=== PATIENT | male | born 1975 | race Two or more races ===

== ENCOUNTER 2020-09-05 13:55 | Emergency (ER) | payer OTHER, SELFPAY ==
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
[2020-09-05 14:53] VITALS: BP 149/95; PULSE 82; RESP 16; TEMP 37.3; O2SAT 98; BMI 28.7
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
[2020-09-05] MEDS: Ketorolac Tromethamine 60 MG/2 ML VIAL IM (16:19)
== END 2020-09-05 17:39 | disposition home or self-care (01) ==
PROVIDERS: Emergency Provider Emergency Medicine Emergency Medical Services
DX: S93.401A Sprain of unspecified ligament of right ankle, initial encounter (principal); M25.571 Pain in right ankle and joints of right foot; M79.671 Pain in right foot; Y92.410 Unspecified street and highway as the place of occurrence of the external cause; V43.62XA Car passenger injured in collision with other type car in traffic accident, initial encounter; Y93.9 Activity, unspecified; Y99.9 Unspecified external cause status
CPT/HCPCS: 73600; 73620; 96372; 99284; J1885

== ENCOUNTER → 2020-09-12 13:59 | Outpatient (BNVA) | payer OTHER, SELFPAY | PROVIDERS: Visit Provider Physician Assistant ==

== ENCOUNTER 2022-01-13 13:26 | Emergency (ER) | payer OTHER, SELFPAY ==
--- NOTE | ~2022-01-13 | XR_ITS ---
EXAMINATION: XR CHEST CLINICAL INFORMATION: Chest pain/cough COMPARISON: None TECHNIQUE: Frontal view of the chest was obtained. FINDINGS: The lungs are well-expanded and clear of acute pneumonic process. There are small nodular density left lower lobe measuring 7 mm similar nodular density seen measuring 4 mm in right lung base. Likely nipple shadows. Heart size and pulmonary vascularity is normal. No gross bony abnormality. XR/XR chest 1V IMPRESSION: Clear lungs likely nipple shadows in both lung bases.
[2022-01-13 13:36] VITALS: BP 147/86; PULSE 73; RESP 16; TEMP 37; O2SAT 97; BMI 31.2
--- NOTE | 2022-01-13 13:40 | ECG_ITS ---
Test Reason : CHEST PAIN Blood Pressure : / mmHG Vent. Rate : 071 BPM Atrial Rate : 071 BPM P-R Int : 116 ms QRS Dur : 078 ms QT Int : 420 ms P-R-T Axes : -15 041 041 degrees QTc Int : 456 ms Normal sinus rhythm Normal ECG No previous ECGs available Referred By: Generic ED Physician Electronically Signed By:NADEGE BAINS MD
[2022-01-13 14:07] LABS: MANUAL DIFF FLAG NO
[2022-01-13 14:09] LABS: Basophils Absolute Auto 0.1 X10*3/uL (0.0-0.2); Basophils Percent Auto 0.7 % (0-2); Eosinophils Absolute Auto 0.2 X10*3/uL (0.0-0.4); Eosinophils Percent Auto 2.7 % (0-4); Hematocrit 34.6 % (42.0-52.0); Hemoglobin 10.8 g/dl (14.0-18.0); Imm Gran Abs Auto 0.02 X10*3/uL (0.00-0.03); Imm Gran Pct Auto 0.3 % (0.0-0.4); Lymphocytes Absolute Auto 1.7 X10*3/uL (1.2-4.9); Lymphocytes Percent Auto 25.1 % (20-40); Mean Corpuscular HGB Conc 31.2 g/dl (31.0-36.0); Mean Corpuscular Hemoglobin 20.6 pg (27.0-33.0); Mean Platelet Volume 11.6 fL (9.4-12.4); Monocytes Absolute Auto 0.5 X10*3/uL (0.1-1.2); Monocytes Percent Auto 7.7 % (2-11); Neutrophils Absolute Auto 4.3 x10*3/uL (2.0-8.3); Neutrophils Percent Auto 63.5 % (45-73); Platelet Count 260 X10*3/uL (160-400); Red Blood Count 5.24 X10*6/uL (4.60-5.80); Red Cell Distribution Width 16.1 % (11.0-16.0); White Blood Count 6.8 X10*3/uL (4.8-10.8)
[2022-01-13 14:16] LABS: COVID-19 Test Positive (Negative)
[2022-01-13 14:25] LABS: Anion Gap 14 (12-20); Blood Urea Nitrogen 11 mg/dL (9-16); Calcium 8.8 mg/dL (8.4-10.2); Carbon Dioxide 26 mmol/L (22-29); Chloride 105 mmol/L (96-108); Creatinine Clr Calc Pharmacy 138.6; Estimated Glomerular Filt Rate > 60; Glucose Random 101 mg/dL (60-115); Potassium 3.9 mmol/L (3.3-5.1); Sodium 141 mmol/L (135-145)
[2022-01-13 14:30] LABS: Troponin-I High Sensitivity 6.9 ng/L (<3.5-35.0)
[2022-01-13 16:00] VITALS: BP 131/81; PULSE 67; RESP 16; TEMP 37; O2SAT 98
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
[2022-01-13] MEDS: Ibuprofen 400 MG TABLET PO (16:58)
== END 2022-01-13 17:02 | disposition home or self-care (01) ==
PROVIDERS: Emergency Provider Student in an Organized Health Care Education/Training Program
DX: U07.1 COVID-19 (principal); R07.89 Other chest pain; R05.9 Cough, unspecified; R42 Dizziness and giddiness; D64.9 Anemia, unspecified; Z79.899 Other long term (current) drug therapy
CPT/HCPCS: 36415; 71045; 80048; 84484; 85025; 87635; 93005; 99284

== ENCOUNTER 2022-05-31 19:49 | Emergency (ER) | payer OTHER, SELFPAY ==
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
[2022-05-31 20:35] VITALS: BP 156/95; PULSE 82; RESP 20; TEMP 36.7; O2SAT 96; BMI 30.2
--- NOTE | 2022-05-31 20:37 | ECG_ITS ---
Test Reason : chest pain Blood Pressure : / mmHG Vent. Rate : 079 BPM Atrial Rate : 079 BPM P-R Int : 120 ms QRS Dur : 074 ms QT Int : 414 ms P-R-T Axes : -15 045 043 degrees QTc Int : 474 ms Normal sinus rhythm Normal ECG When compared with ECG of 13-JAN-2022 13:55, No significant change was found Referred By: Hannah Cesar Electronically Signed By:NILTON OHARA
--- NOTE | 2022-05-31 20:38 | ED.MVA ---
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 intracranial hemorrhage or calvarial fracture. 2.? No traumatic subluxation or acute cervical spine fracture. Dictated By: Janes Us Signed By: Electronically signed by Janes?Magen 05/31/222234 <NIK Mcguire - Last Filed: 05/31/22 23:22> Discharge Plan Discharge Clinical Impression: Back pain, Neck pain <NIK Gallo - Last Filed: 05/31/22 20:42> Patient Disposition: Home, Self-Care <NIK Gallo - Last Filed: 05/31/22 20:42> Instructions: Back Pain (ED), Acute Neck Pain (ED) <NIK Gallo - Last Filed: 05/31/22 20:42> Additional Instructions: Follow up with your primary care provider. Return to the emergency department immediately if your symptoms worsen or if you develop any dizziness, shortness of breath, difficulty breathing, chest pain, blurry vision, loss of vision, nausea, vomiting, abdominal pain, fever, chills, back pain, or any other complaints. Debra un seguimiento con muñoz proveedor de atenci?n primaria. Regrese al departamento de emergencias de inmediato si kate s?ntomas empeoran o si presenta mareos, falta de aire, dificultad para respirar, dolor de pecho, visi?n borrosa, p?rdida de la visi?n, n?useas, v?mitos, dolor abdominal, fiebre, escalofr?os, dolor de espalda o cualquier otras quejas. <NIK Gallo - Last Filed: 05/31/22 20:42> Prescriptions: New cyclobenzaprine 5 mg tablet 5 mg PO TID PRN (Reason: muscle spasm) 7 Days Qty: 21 0RF No Action naproxen 500 mg tablet 500 mg PO BID PRN (Reason: pain) Qty: 20 0RF cyclobenzaprine 10 mg tablet 10 mg PO TID PRN (Reason: muscle spasm) Qty: 10 0RF <NIK Gallo - Last Filed: 05/31/22 20:42> Referrals: [facility] [Provider Group] (Call to establish and follow up with a primary care provider. If you already have a primary care provider, please follow up with them. Llame para establecer y hacer un seguimiento con un proveedor de atenci?n primaria. Si ya tiene un proveedor de atenci?n primaria, debra un seguimiento con ?l.) [facility] Primary [facility], [place] [Provider Group] (Call to establish and follow up with a primary care provider. If you already have a primary care provider, please follow up with them. Llame para establecer y hacer un seguimiento con un proveedor de atenci?n primaria. Si ya tiene un proveedor de atenci?n primaria, debra un seguimiento con ?l.) [facility] Primary Care,[place] [Provider Group] (Call to establish and follow up with a primary care provider. If you already have a primary care provider, please follow up with them. Llame para establecer y hacer un seguimiento con un proveedor de atenci?n primaria. Si ya tiene un proveedor de atenci?n primaria, debra un seguimiento con ?l.) <NIK Gallo - Last Filed: 05/31/22 20:42> Stand Alone Forms: Work/School Release <NIK Gallo - Last Filed: 05/31/22 20:42> Interventions: ED Discharge Assessment Last Done: 05/31/22 23:15 <NIK Gallo - Last Filed: 05/31/22 20:42> Print Language: Nigerien <NIK Gallo - Last Filed: 05/31/22 20:42>
[2022-05-31 21:07] LABS: Lymphocytes Percent Auto 21.2 % (20-40); Red Cell Distribution Width 15.6 % (11.0-16.0); SCAN SMEAR FLAG 1
[2022-05-31 21:09] LABS: Basophils Absolute Auto 0.1 X10*3/uL (0.0-0.2); Basophils Percent Auto 0.9 % (0-2); Eosinophils Absolute Auto 0.2 X10*3/uL (0.0-0.4); Eosinophils Percent Auto 2.4 % (0-4); Hemoglobin 11.6 g/dl (14.0-18.0); Imm Gran Abs Auto 0.04 X10*3/uL (0.00-0.03); Imm Gran Pct Auto 0.4 % (0.0-0.4); Lymphocytes Absolute Auto 2.1 X10*3/uL (1.2-4.9); MANUAL DIFF FLAG SCAN; Mean Corpuscular HGB Conc 31.4 g/dl (31.0-36.0); Mean Corpuscular Hemoglobin 20.9 pg (27.0-33.0); Mean Corpuscular Volume 66.8 fL (80.0-98.0); Mean Platelet Volume 11.6 fL (9.4-12.4); Monocytes Absolute Auto 0.5 X10*3/uL (0.1-1.2); Monocytes Percent Auto 5.3 % (2-11); Neutrophils Absolute Auto 6.8 x10*3/uL (2.0-8.3); Neutrophils Percent Auto 69.8 % (45-73); PLT CLUMP 1; Red Blood Count 5.54 X10*6/uL (4.60-5.80)
[2022-05-31 21:13] LABS: INTERNATIONAL NORM RATIO 1.1 (0.9-1.1); Prothrombin Time 12.2 SEC (10.0-13.1)
[2022-05-31 21:21] LABS: Alanine Aminotransferase 103 U/L (0-40); Albumin Level 4.4 g/dL (3.5-5.0); Alkaline Phosphatase 91 U/L (39-117); Anion Gap 16 (12-20); Aspartate Amino Transferase 117 U/L (5-37); Blood Urea Nitrogen 8 mg/dL (9-16); Calcium 8.9 mg/dL (8.4-10.2); Carbon Dioxide 22 mmol/L (22-29); Chloride 105 mmol/L (96-108); Creatinine Clr Calc Pharmacy 151.6; Estimated Glomerular Filt Rate > 60; Glucose Random 94 mg/dL (60-115); Magnesium 1.9 mg/dL (1.6-2.6); Potassium 4.1 mmol/L (3.3-5.1); Sodium 139 mmol/L (135-145); Total Protein 7.1 g/dL (6.5-8.0)
[2022-05-31 21:28] LABS: PLT ABN DIST 1; Platelet Count 143 X10*3/uL (160-400); Troponin-I High Sensitivity 6.4 ng/L (<3.5-35.0); White Blood Count 9.8 X10*3/uL (4.8-10.8)
[2022-05-31 21:29] LABS: SLIDE REVIEW VERIFIED
[2022-05-31 21:47] LABS: Influenza A PCR NEGATIVE (Negative); Influenza B PCR NEGATIVE (Negative); Resp Syncy Virus RNA Qual PCR NEGATIVE (Negative); SARS COV2 PCR INHOUSE NEGATIVE (Negative)
[2022-05-31 22:10] VITALS: BP 143/90; PULSE 83; RESP 18; TEMP 36.8; O2SAT 98
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
[2022-05-31] MEDS: Ketorolac Tromethamine 15 MG/ML VIAL IM (23:08)
[2022-05-31] MEDS: Cyclobenzaprine HCl 5 MG TABLET PO (23:08)
--- NOTE | 2022-05-31 23:15 | PC.NURSE ---
Pt medicated as prescribed for pain. Discharge instructions reviewed with pt. Pt verbalizes understanding.
== END 2022-05-31 23:16 | disposition home or self-care (01) ==
PROVIDERS: Physician Assistant Medical; Emergency Provider Student in an Organized Health Care Education/Training Program
DX: Z04.1 Encounter for examination and observation following transport accident (principal); M54.2 Cervicalgia; M54.50 Low back pain, unspecified; Z20.822 Contact with and (suspected) exposure to COVID-19
CPT/HCPCS: 0241U; 36415; 70450; 71046; 72100; 72125; 80053; 83735; 84484; 85025; 85610; 93005; 96372; 99284; 99285; J1885

== ENCOUNTER 2022-12-08 20:54 | Inpatient (IN) | payer OTHER, SELFPAY ==
--- NOTE | ~2022-12-08 | XR_ITS ---
EXAMINATION: XR CHEST CLINICAL INFORMATION: Chest pain COMPARISON: Chest 05/31/2022 TECHNIQUE: Frontal view of the chest was obtained. FINDINGS: No significant abnormality is noted involving the heart, lungs, mediastinum, bony thorax or soft tissues. XR/XR chest 1V IMPRESSION: Unremarkable chest examination.
[2022-12-08 20:58] VITALS: BP 127/83; PULSE 106; RESP 22; TEMP 36.3; O2SAT 98; BMI 29.5
--- NOTE | 2022-12-08 20:58 | ECG_ITS ---
Test Reason : CHEST PAIN Blood Pressure : / mmHG Vent. Rate : 103 BPM Atrial Rate : 103 BPM P-R Int : 134 ms QRS Dur : 084 ms QT Int : 380 ms P-R-T Axes : 037 041 032 degrees QTc Int : 497 ms Sinus tachycardia Cannot exclude old inferior infarct Prolonged QT Abnormal ECG When compared with ECG of 31-MAY-2022 21:04, No significant change was found Referred By: Generic ED Physician Electronically Signed By:NILTON OHARA
[2022-12-08 21:11] LABS: MANUAL DIFF FLAG NO
[2022-12-08 21:12] LABS: Basophils Absolute Auto 0.1 X10*3/uL (0.0-0.2); Basophils Percent Auto 0.8 % (0-2); Eosinophils Absolute Auto 0.2 X10*3/uL (0.0-0.4); Eosinophils Percent Auto 1.2 % (0-4); Hematocrit 30.3 % (42.0-52.0); Hemoglobin 9.9 g/dl (14.0-18.0); Imm Gran Abs Auto 0.09 X10*3/uL (0.00-0.03); Imm Gran Pct Auto 0.6 % (0.0-0.4); Lymphocytes Absolute Auto 2.4 X10*3/uL (1.2-4.9); Lymphocytes Percent Auto 16.5 % (20-40); Mean Corpuscular HGB Conc 32.7 g/dl (31.0-36.0); Mean Corpuscular Hemoglobin 23.1 pg (27.0-33.0); Mean Corpuscular Volume 70.8 fL (80.0-98.0); Mean Platelet Volume 11.2 fL (9.4-12.4); Monocytes Percent Auto 6.6 % (2-11); NRBC Pct Auto 0.3 /100WBC (0.0-0.2); Neutrophils Absolute Auto 10.8 x10*3/uL (2.0-8.3); Neutrophils Percent Auto 74.3 % (45-73); Platelet Count 267 X10*3/uL (160-400); Red Blood Count 4.28 X10*6/uL (4.60-5.80); Red Cell Distribution Width 17.5 % (11.0-16.0); White Blood Count 14.6 X10*3/uL (4.8-10.8)
[2022-12-08 21:18] LABS: INTERNATIONAL NORM RATIO 1.1 (0.9-1.1); Prothrombin Time 13.2 SEC (10.0-13.1)
[2022-12-08 21:32] LABS: Alanine Aminotransferase 42 U/L (0-40); Albumin Level 3.9 g/dL (3.5-5.0); Alkaline Phosphatase 110 U/L (39-117); Anion Gap 19 (12-20); Aspartate Amino Transferase 65 U/L (5-37); Bilirubin Total 1.1 mg/dL (0.0-1.0); Blood Urea Nitrogen 4 mg/dL (9-16); Calcium 8.8 mg/dL (8.4-10.2); Carbon Dioxide 20 mmol/L (22-29); Chloride 105 mmol/L (96-108); Creatinine Clr Calc Pharmacy 136.6; Estimated Glomerular Filt Rate > 60; Glucose Random 192 mg/dL (60-115); Potassium 2.4 mmol/L (3.3-5.1); Sodium 142 mmol/L (135-145); Total Protein 7.1 g/dL (6.5-8.0); Troponin-I High Sensitivity 3.2 ng/L (<3.5-35.0)
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
--- OUTSIDE RECORDS SUMMARY | 2022-12-08 21:50 | XMS_ITS | Continuity of Care Document ---
Author Name Unknown Organization [facility] Address [address] [place] [address]- Care Team Providers Care Neurology Director Name Role Phone Not on Staff, PCP Primary Care Physician Unavail able Encounter [facility] Date(s): 09/05/20 - 10/05/20 [facility]/[address] [address]- Allergies, Adverse Reactions, Alerts Substance Reaction Severity Status NKA Active Immunizations Given and Recorded Vaccine Date Status Refusal Reason influenza virus vaccine, inactivated 06/26/20 Give n influenza virus vaccine, inactivated 11/01/15 Give n tetanus/diphtheria/pertussis, acel(Tdap) 11/01/15 Given Medications Melatonin 5 mg oral tablet 1 tablet = 5 mg, By Mouth, Daily at bedtime, PRN for insomnia, # 60 tablet, 1 Refills, Maintenance,10/21/16 17:04:10, Tablet, please label in saudi arabian Start Date: 10/21/16 Status: Ordered omeprazole 20 mg oral enteric coated capsule 1 capsule = 20 mg, By Mouth, Daily, # 30 capsule, 1 Refills, Maintenance, 10/21/16 17:04:10, EC Capsule, please label in saudi arabian Start Date: 10/21/16 Status: Ordered Social History Social History Type Response Smoking Status Current every day sm oker; Type: Cigarettes; Tobacco use times per day: 7 cig / day; entered on: 10/21/16 Sex
--- OUTSIDE RECORDS SUMMARY | 2022-12-08 21:50 | XMS_ITS | Continuity of Care Document ---
Author Name Unknown Organization [facility] Address [address] [place] [address]- Care Team Providers Care Technical Staff Assistant Name Role Phone Not on Staff, PCP Primary Care Physician Unavail able Encounter [facility] Date(s): 06/19/20 - 07/19/20 [facility]/[address] [address]- Allergies, Adverse Reactions, Alerts Substance Reaction Severity [...] Refills, Maintenance,10/21/16 17:04:10, Tablet, please label in macedonian Start Date: 10/21/16 Status: Ordered omeprazole 20 mg oral enteric coated capsule 1 capsule = 20 mg, By Mouth, Daily, # 30 capsule, 1 Refills, Maintenance, 10/21/16 17:04:10, EC Capsule, please label in macedonian Start Date: 10/21/16 Status: Ordered Social History Social History Type Response Smoking Status Current every day sm oker; Type: Cigarettes; Tobacco use times per day: 7 cig / day; entered on: 10/21/16 Sex
--- OUTSIDE RECORDS SUMMARY | 2022-12-08 21:50 | XMS_ITS | Continuity of Care Document ---
Author Name Unknown Organization [facility] Address [address] [place] [address]- Care Team Providers Care Associate Loan Officer Name Role Phone Not on Staff, PCP Primary Care Physician Unavail able Encounter [facility] Date(s): 06/12/20 - 07/19/20 [facility]/[address] [address]- Attending Physician: Prisca Salinas NP Admitting Physician: Prisca Salinas NP Allergies, Adverse Reactions, Alerts Substance Reaction Severity [...] Refills, Maintenance,10/21/16 17:04:10, Tablet, please label in bangladeshi Start Date: 10/21/16 Status: Ordered omeprazole 20 mg oral enteric coated capsule 1 capsule = 20 mg, By Mouth, Daily, # 30 capsule, 1 Refills, Maintenance, 10/21/16 17:04:10, EC Capsule, please label in bangladeshi Start Date: 10/21/16 Status: Ordered Social History Social History Type Response Smoking Status Current every day sm oker; Type: Cigarettes; Tobacco use times per day: 7 cig / day; entered on: 10/21/16 Sex
--- OUTSIDE RECORDS SUMMARY | 2022-12-08 21:50 | XMS_ITS | Continuity of Care Document ---
Author Name Unknown Organization [facility] Address [address] [place] [address]- Care Team Providers Care Area Field Manager Name Role Phone Not on Staff, PCP Primary Care Physician Unavail able Encounter [facility] Date(s): 10/17/20 - 11/16/20 [facility] [address] [place] [address]- Attending Physician: Jarocho Macedo Admitting Physician: AdmJarocho lindsey Referring Physician: AdmtrJarocho Allergies, Adverse Reactions, Alerts Substance Reaction Severity [...]
--- OUTSIDE RECORDS SUMMARY | 2022-12-08 21:50 | XMS_ITS | Continuity of Care Document ---
Author Name Unknown Organization [facility] Address [address] [place] [address]- Care Team Providers Care Resource Manager Forester Name Role Phone Not on Staff, PCP Primary Care Physician Unavail able Encounter [facility] Date(s): 07/07/20 - 08/06/20 [facility] [address] [place] [address]- Attending Physician: Jarocho Macedo Admitting Physician: AdmJarocho [...] Refills, Maintenance,10/21/16 17:04:10, Tablet, please label in tanzanian Start Date: 10/21/16 Status: Ordered omeprazole 20 mg oral enteric coated capsule 1 capsule = 20 mg, By Mouth, Daily, # 30 capsule, 1 Refills, Maintenance, 10/21/16 17:04:10, EC Capsule, please label in tanzanian Start Date: 10/21/16 Status: Ordered Social History Social History Type Response Smoking Status Current every day sm oker; Type: Cigarettes; Tobacco use times per day: 7 cig / day; entered on: 10/21/16 Sex
--- OUTSIDE RECORDS SUMMARY | 2022-12-08 21:50 | XMS_ITS | Continuity of Care Document ---
Author Name Unknown Organization [facility] Address [address] [place] [address]- Care Team Providers Care Switchboard Operator Name Role Phone Not on Staff, PCP Primary Care Physician Unavail able Encounter [facility] Date(s): 06/19/20 - 08/06/20 [facility]/[address] [address]- Attending Physician: Prisca Salinas NP Admitting Physician: [...] Refills, Maintenance,10/21/16 17:04:10, Tablet, please label in kuwaiti Start Date: 10/21/16 Status: Ordered omeprazole 20 mg oral enteric coated capsule 1 capsule = 20 mg, By Mouth, Daily, # 30 capsule, 1 Refills, Maintenance, 10/21/16 17:04:10, EC Capsule, please label in kuwaiti Start Date: 10/21/16 Status: Ordered Social History Social History Type Response Smoking Status Current every day sm oker; Type: Cigarettes; Tobacco use times per day: 7 cig / day; entered on: 10/21/16 Sex
--- NOTE | 2022-12-08 21:56 | ED.CHESTPAIN ---
HPI - Chest Pain General Chief Complaint: Chest Pain Stated Complaint: Chest pain/diff breathing Time Seen by Provider: 12/08/22 21:39 History of Present Illness HPI narrative: patient is a 47-year-old male with a long history of smoking. He works in [employer]. Patient is working outside in the heat. Been noticing he is having some chest pain when he exerts himself. He has been drinking lots of fluids and also feel like he is urinating a lot. Feels weak and tired. He came to the ED for help. Patient denies any history of high blood pressure. He has not been followed by his primary physician. He has not been taking any medication. He is from home. Feels generally weak. Positive minimal coughing. Patient is a smoker. No recent risk stratification. Related Data Previous Rx's Medication Instructions Recorded cyclobenzaprine 10 mg tablet 10 mg PO TID PRN muscle spasm #10 09/05/20 tabs naproxen 500 mg tablet 500 mg PO BID PRN pain #20 tabs 09/05/20 cyclobenzaprine 5 mg tablet 5 mg PO TID PRN muscle spasm 7 05/31/22 days #21 tabs Allergies Allergy/AdvReac Type Severity Reaction Status Date / Time No Known Allergies Allergy Verified 01/13/22 13:36 [No Known Allergies*] Review of Systems Review of Systems: Positive chest pain no diaphoresis no fever no chills no coughing no congestion or respiratory symptoms. Yes all other systems are reviewed and are negative PMFSH Past Medical History Attestation statement: The following information was validated with the patient. 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 Oriented X3. No acute distress. Eyes: Pupils equal, round and reactive to light. ENT: Pharynx normal. Neck: Normal inspection. Neck supple. No lymph nodes noted. No crepitus CVS: Normal heart rate and rhythm. Pulses normal. Normal S1 and S2 Respiratory: No respiratory distress. Breath sounds normal. No Wheezing. No rales Abdomen: Soft and nontender. No rigidity. No distention. good BS x4 Skin: Skin warm and dry. Normal skin color. Normal skin turgor. Extremities: No lower extremity edema. Neurovascular intact to all extremities. No Lacerations. No Rash Neuro: Oriented X 3. No motor deficit. No sensory deficit. Moving all extermities. No slurred speech Medications Administered Generic Name Dose Route Start Last Admin Trade Name Freq PRN Reason Stop Dose Admin Potassium Chloride 10 meq in 100 mls @ 100 mls/hr 12/08/22 22:00 12/08/22 22:06 Potassium Chloride/H20 IV 12/09/22 01:59 100 mls/hr Q1H AMY Administration Sodium Chloride 1,000 mls @ 999 mls/hr 12/08/22 22:00 12/08/22 22:05 Ns IV 12/08/22 23:00 999 mls/hr .Q1H1M AMY Administration Discontinued Medications Generic Name Dose Route Start Last Admin Trade Name Freq PRN Reason Stop Dose Admin Aspirin 324 mg 12/08/22 21:56 12/08/22 22:04 Aspirin 81 Mg Tab.Chew PO 12/08/22 21:57 324 mg ONCE ONE Administration Potassium Chloride 40 meq 12/08/22 21:48 12/08/22 22:04 Potassium Chloride Er 20 Meq Tab.Er.Prt PO 12/08/22 21:49 40 meq ONCE ONE Administration Medical Decision Making Medical Decision Making MDM Narrative: Patient has chest pain with exertion. positive generalized malaise. Patient sugar was noted to be in the 190 range. He has not drink are 8 anything prior. Question secondary to diabetes. IV fluids started. Patient's potassium came back at 2.4. Added a magnesium. Will replete with 4 runs of 10 mEq potassium. Oral potassium supplement also ordered. First troponin was negative. My interpretation of the patient's EKG showed a sinus rhythm heart rate is 100 [place] QRS QTC within normal limits there is nonspecific T-wave flattening noted. Will get serial enzymes. Patient's chest pain is been ongoing for few days he does have multiple risk factor including smoking, question diabete. Will need serial enzymes. Currently in stable condition awaiting admission. patient's magnesium came back at 2.3 Potassium is being repleted. Case discussed with patient. Discussed with hospitalist for admission. Differential Diagnosis Differential Diagnoses: The differential diagnosis associated with the presentation includes ACS Consult Healthcare Provider Management of the patient was discussed with: Hospitalist Lab Data [facility] Lab Attestation statement: I reviewed the patient's lab results. 12/08/22 21:07 12/08/22 21:07 Labs: Lab Results 12/08/22 12/08/22 12/08/22 Range/Units 21:07 21:07 21:07 WBC 14.6 H (4.8-10.8) X10*3/uL RBC 4.28 L D (4.60-5.80) X10*6/uL Hgb 9.9 L (14.0-18.0) g/dl Hct 30.3 L (42.0-52.0) % MCV 70.8 L (80.0-98.0) fL MCH 23.1 L (27.0-33.0) pg MCHC 32.7 (31.0-36.0) g/dl RDW 17.5 H (11.0-16.0) % Plt Count 267 D (160-400) X10*3/uL MPV 11.2 (9.4-12.4) fL Immature Gran % (Auto) 0.6 H (0.0-0.4) % Neut % (Auto) 74.3 H (45-73) % Lymph % (Auto) 16.5 L (20-40) % [place] % (Auto) 6.6 (2-11) % Eos % (Auto) 1.2 (0-4) % Baso % (Auto) 0.8 (0-2) % Lymph # (Auto) 2.4 (1.2-4.9) X10*3/uL [place] # (Auto) 1.0 (0.1-1.2) X10*3/uL Eos # (Auto) 0.2 (0.0-0.4) X10*3/uL Baso # (Auto) 0.1 (0.0-0.2) X10*3/uL Abs Immat Gran (auto) 0.09 H (0.00-0.03) X10*3/uL Absolute Neuts (auto) 10.8 H (2.0-8.3) x10*3/uL Absolute Nucleated RBC 0.040 H (0.0-0.012) X10*3/uL Nucleated RBC % (auto) 0.3 H (0.0-0.2) /100WBC PT 13.2 H (10.0-13.1) SEC INR 1.1 (0.9-1.1) Sodium 142 (135-145) mmol/L Potassium 2.4 L* D (3.3-5.1) mmol/L Chloride 105 (96-108) mmol/L Carbon Dioxide 20 L (22-29) mmol/L Anion Gap 19 (12-20) BUN 4 L (9-16) mg/dL Creatinine 0.76 (0.5-1.4) mg/dL Estim Creat Clear Calc 136.6 Estimated GFR > 60 Random Glucose 192 H (60-115) mg/dL Calcium 8.8 (8.4-10.2) mg/dL Magnesium 2.3 (1.6-2.6) mg/dL Total Bilirubin 1.1 H (0.0-1.0) mg/dL AST 65 H (5-37) U/L ALT 42 H (0-40) U/L Alkaline Phosphatase 110 (39-117) U/L Troponin I High Sens (<3.5-35.0) ng/L Total Protein 7.1 (6.5-8.0) g/dL Albumin 3.9 (3.5-5.0) g/dL 12/08/22 Range/Units 21:07 WBC (4.8-10.8) X10*3/uL RBC (4.60-5.80) X10*6/uL Hgb (14.0-18.0) g/dl Hct (42.0-52.0) % MCV (80.0-98.0) fL MCH (27.0-33.0) pg MCHC (31.0-36.0) g/dl RDW (11.0-16.0) % Plt Count (160-400) X10*3/uL MPV (9.4-12.4) fL Immature Gran % (Auto) (0.0-0.4) % Neut % (Auto) (45-73) % Lymph % (Auto) (20-40) % [place] % (Auto) (2-11) % Eos % (Auto) (0-4) % Baso % (Auto) (0-2) % Lymph # (Auto) (1.2-4.9) X10*3/uL [place] # (Auto) (0.1-1.2) X10*3/uL Eos # (Auto) (0.0-0.4) X10*3/uL Baso # (Auto) (0.0-0.2) X10*3/uL Abs Immat Gran (auto) (0.00-0.03) X10*3/uL Absolute Neuts (auto) (2.0-8.3) x10*3/uL Absolute Nucleated RBC (0.0-0.012) X10*3/uL Nucleated RBC % (auto) (0.0-0.2) /100WBC PT (10.0-13.1) SEC INR (0.9-1.1) Sodium (135-145) mmol/L Potassium (3.3-5.1) mmol/L Chloride (96-108) mmol/L Carbon Dioxide (22-29) mmol/L Anion Gap (12-20) BUN (9-16) mg/dL Creatinine (0.5-1.4) mg/dL Estim Creat Clear Calc Estimated GFR Random Glucose (60-115) mg/dL Calcium (8.4-10.2) mg/dL Magnesium (1.6-2.6) mg/dL Total Bilirubin (0.0-1.0) mg/dL AST (5-37) U/L ALT (0-40) U/L Alkaline Phosphatase (39-117) U/L Troponin I High Sens 3.2 (<3.5-35.0) ng/L Total Protein (6.5-8.0) g/dL Albumin (3.5-5.0) g/dL Independent Interpretation I performed an independent interpretation of an: EKG Interpretation: my interpretation patient's EKG showed a sinus rhythm heart rate is 100 [place] QRS QTC within normal limits there is nonspecific T-wave flattening noted. Radiology Impression Discussion of test interpretation with radiology: I have reviewed the radiologist's reading. External Record Review External record reviewed: Office record Chronic Conditions Patient?s care impacted by: Diabetes Smoking Critical Care Time Critical Care Time Critical Care Time: No Discharge Plan Discharge Clinical Impression: Chest pain, Acute hypokalemia Patient Disposition: Admitted As Inpatient
[2022-12-08] MEDS: Potassium Chloride ER 20 MEQ TAB.ER.PRT 40 MEQ PO (22:04)
[2022-12-08] MEDS: Aspirin 81 MG TAB.CHEW 324 MG PO (22:04)
[2022-12-08] MEDS: 0.9 % Sodium Chloride 1,000 ML 999 ML IV (22:05)
[2022-12-08] MEDS: Potassium Chloride/H20 10 MEQ/100 ML PIGGYBACK 100 MEQ IV ×2 (22:06→23:09)
[2022-12-08 22:11] LABS: Magnesium 2.3 mg/dL (1.6-2.6)
[2022-12-08 22:43] LABS: COVID-19 Test Negative (Negative); IDNOW Serial# 08D9AD1C
[2022-12-08 22:46] LABS: Troponin-I High Sensitivity 3.1 ng/L (<3.5-35.0)
--- NOTE | 2022-12-08 22:49 | P.HPHOSP_ITS ---
History of Present Illness Date of Service: 12/08/22 Chief Complaint: Chest pain This is a 47-year-old male with pertinent history of tobacco use disorder presents emergency department for evaluation of chest discomfort. Patient has not seen a doctor in a while and does not take any prescription medications. Patient works in [employer] and about 2 days prior to presentation, patient noticed midsternal chest discomfort that worsened with exertion and radiated to the left arm. No relief with rest. Patient states over the last 2 days, he has had on and off chest discomfort. Patient denies fever, chills, shortness of breath, palpitations, changes in urinary habits. He also complains of nonbloody diarrhea that has been ongoing for the last few days. In the emergency department, patient's potassium found to be low. Review of Systems Constitutional: Constitutional: Reports fatigue Cardiovascular: Cardiovascular: Reports chest pain Respiratory: Respiratory: Reports no additional respiratory complaints Gastrointestinal: Gastrointestinal: Reports no additional gastrointestinal complaints Genitourinary: Genitourinary: Reports no additional male genitourinary complaints Endocrine: Endocrine: Reports fatigue [facility] Medical History Tobacco use disorder Pertinent family history: No family history of CAD Social History Alcohol intake: current Alcohol intake frequency: holidays/special occasions only Advance Directives: No Advance Directives Information Provided: No Current occupational status: employed Current occupation: [employer] Allergies Allergy/AdvReac Type Severity Reaction Status Date / Time No Known Allergies Allergy Verified 01/13/22 13:36 [No Known Allergies*] Active Medications: Current Medications Acetaminophen (Acetaminophen 325 Mg Tablet) 650 mg PO Q6H PRN PRN Reason: Pain, Mild (Pain Scale 1-3) Enoxaparin Sodium (Enoxaparin Sodium 40 Mg/0.4 Ml Syringe) 40 mg SUBCUT Q24H AMY Potassium Chloride (Potassium Chloride/H20) 10 meq in 100 mls @ 100 mls/hr IV Q1H AMY Stop: 12/09/22 01:59 Last Admin: 12/08/22 22:06 Dose: 100 mls/hr Sodium Chloride (Ns) 1,000 mls @ 999 mls/hr IV .Q1H1M AMY Stop: 12/08/22 23:00 Last Admin: 12/08/22 22:05 Dose: 999 mls/hr Melatonin (Melatonin 3 Mg Tablet) 6 mg PO BEDTIME PRN PRN Reason: Insomnia Ondansetron HCl (Ondansetron Hcl 4 Mg/2 Ml Vial) 4 mg IVPUSH Q8H PRN PRN Reason: Nausea and Vomiting Sodium Chloride (0.9 % Sodium Chloride Flush 3 Ml Syringe) 3 ml IVFLUSH QSHIFT [facility] Physical Exam Vital Signs and Narrative: Vital Signs: Last Vital Signs Temp 97.4 F 12/08/22 20:58 Pulse 106 H 12/08/22 20:58 Resp 22 H 12/08/22 20:58 BP 127/83 12/08/22 20:58 Pulse Ox 98 12/08/22 20:58 O2 Del Method Room Air 12/08/22 20:58 BMI result Body Mass Index 29.5 Middle-aged male lying in bed in no distress Neck supple, no JVD, nontender chest Tachycardic with regular rhythm, S1-S2 heard Regular breath sounds bilaterally, no wheezing or crackles appreciated Abdomen soft nontender, no guarding, no rigidity Patient is awake, alert and oriented to self, place, time and person ; no focal motor deficit Psych: Normal mood No pedal edema Results Labs 12/08/22 21:07 12/08/22 21:07 Labs: Laboratory Results - last 24 hr 12/08/22 12/08/22 12/08/22 21:07 21:07 21:07 MCV 70.8 L MCH 23.1 L MCHC 32.7 RDW 17.5 H Plt Count 267 D MPV 11.2 Immature Gran % (Auto) 0.6 H Neut % (Auto) 74.3 H Lymph % (Auto) 16.5 L [place] % (Auto) 6.6 Eos % (Auto) 1.2 Baso % (Auto) 0.8 Lymph # (Auto) 2.4 [place] # (Auto) 1.0 Eos # (Auto) 0.2 Baso # (Auto) 0.1 Abs Immat Gran (auto) 0.09 H Absolute Neuts (auto) 10.8 H Absolute Nucleated RBC 0.040 H Nucleated RBC % (auto) 0.3 H PT 13.2 H INR 1.1 Anion Gap 19 Estim Creat Clear Calc 136.6 Estimated GFR > 60 Random Glucose 192 H Calcium 8.8 Magnesium 2.3 Total Bilirubin 1.1 H AST 65 H ALT 42 H Alkaline Phosphatase 110 Troponin I High Sens Total Protein 7.1 Albumin 3.9 COVID-19 ([facility]) COVID-19 Clin Com 12/08/22 12/08/22 12/08/22 21:07 22:09 22:09 MCV MCH MCHC RDW Plt Count MPV Immature Gran % (Auto) Neut % (Auto) Lymph % (Auto) [place] % (Auto) Eos % (Auto) Baso % (Auto) Lymph # (Auto) [place] # (Auto) Eos # (Auto) Baso # (Auto) Abs Immat Gran (auto) Absolute Neuts (auto) Absolute Nucleated RBC Nucleated RBC % (auto) PT INR Anion Gap Estim Creat Clear Calc Estimated GFR Random Glucose Calcium Magnesium Total Bilirubin AST ALT Alkaline Phosphatase Troponin I High Sens 3.2 3.1 Total Protein Albumin COVID-19 ([facility]) Negative COVID-19 Clin Com See Note Assessment and Plan (1) Chest pain: Status: Acute (2) Acute hypokalemia: Status: Acute Plan This is a 47-year-old male with pertinent history of tobacco use disorder presents emergency department for evaluation of chest discomfort. #. Atypical chest discomfort. Patient was given aspirin in the ER. Will admit for observation with monitoring analyst. Trend troponin. Obtaining echocardiogram. Consulting Cardiology, appreciate assistance #. Hypokalemia due to GI losses. Repleted #. Tobacco use disorder: Nicotine patch while in the hospital. #. Hyperglycemia: Obtain A1c. Initiating accuchecks with SSI #. Microcytic anemia: Obtaining iron panel #. Reactive leukocytosis DVT prophylaxis: Lovenox Full code Time Spent With Patient Time: Total time managing care of this patient today ____ minutes. Quality Stroke Does the patient have a stroke diagnosis?: No VTE Prior VTE?: No VTE Risk Level:: Medical - moderate - high VTE Device Contraindication: Treatment Not Indicated VTE Drug Contraindication: N/A - Med Ordered
[2022-12-08] MEDS: Enoxaparin Sodium 40 MG/0.4 ML SYRINGE SUBCUT (22:59)
[2022-12-08] MEDS: Potassium Chloride Packet 20 MEQ PACKET 40 MEQ PO (23:01)
[2022-12-08] MEDS: Nicotine 14 MG PATCH.TD24 TRANSDERMA (23:01)
[2022-12-08 23:18] VITALS: PULSE 98
[2022-12-08 23:19] LABS: Iron 202 mcg/dL (45-160); Percent Iron Saturation 59 % (15-50); Total Iron Binding Capacity 341 mcg/dL (228-428); Unsaturated Iron Binding 139 ug/dL
--- NOTE | 2022-12-08 23:21 | PC.NURSE ---
Patient does not take any medications at home. Follow up appointment with a new PCP . Patient reports he is diabetic.
[2022-12-08] MEDS: Acetaminophen 325 MG TABLET 650 MG PO (23:23)
[2022-12-09] MEDS: 0.9 % Sodium Chloride Flush 3 ML SYRINGE IVFLUSH ×2 (00:09→06:58)
[2022-12-09] MEDS: Potassium Chloride/H20 10 MEQ/100 ML PIGGYBACK 100 MEQ IV ×6 (00:09→10:37)
[2022-12-09 02:03] VITALS: BP 111/68; PULSE 100; RESP 18; TEMP 37.3; O2SAT 97
[2022-12-09 06:05] LABS: MANUAL DIFF FLAG NO
[2022-12-09 06:09] LABS: Basophils Absolute Auto 0.1 X10*3/uL (0.0-0.2); Basophils Percent Auto 0.7 % (0-2); Eosinophils Absolute Auto 0.3 X10*3/uL (0.0-0.4); Eosinophils Percent Auto 2.7 % (0-4); Hematocrit 27.3 % (42.0-52.0); Imm Gran Abs Auto 0.06 X10*3/uL (0.00-0.03); Imm Gran Pct Auto 0.6 % (0.0-0.4); Lymphocytes Absolute Auto 2.4 X10*3/uL (1.2-4.9); Lymphocytes Percent Auto 22.7 % (20-40); Mean Corpuscular Hemoglobin 23.4 pg (27.0-33.0); Mean Corpuscular Volume 70.9 fL (80.0-98.0); Mean Platelet Volume 11.4 fL (9.4-12.4); Monocytes Absolute Auto 0.6 X10*3/uL (0.1-1.2); Monocytes Percent Auto 5.4 % (2-11); NRBC Pct Auto 0.4 /100WBC (0.0-0.2); Neutrophils Percent Auto 67.9 % (45-73); Platelet Count 250 X10*3/uL (160-400); Red Blood Count 3.85 X10*6/uL (4.60-5.80); Red Cell Distribution Width 17.2 % (11.0-16.0); White Blood Count 10.3 X10*3/uL (4.8-10.8)
[2022-12-09 06:33] LABS: Anion Gap 13 (12-20); Blood Urea Nitrogen 4 mg/dL (9-16); Calcium 8.1 mg/dL (8.4-10.2); Carbon Dioxide 24 mmol/L (22-29); Chloride 108 mmol/L (96-108); Creatinine Clr Calc Pharmacy 159.7; Estimated Glomerular Filt Rate > 60; Glucose Random 109 mg/dL (60-115); Potassium 3.1 mmol/L (3.3-5.1); Sodium 142 mmol/L (135-145)
[2022-12-09 06:34] VITALS: BP 143/85; PULSE 90; RESP 22; TEMP 37.7; O2SAT 97
[2022-12-09 06:39] LABS: Troponin-I High Sensitivity 3.2 ng/L (<3.5-35.0)
[2022-12-09] MEDS: Acetaminophen 325 MG TABLET 650 MG PO (06:39)
[2022-12-09 06:55] VITALS: BP 145/90; PULSE 89; RESP 21; TEMP 37.2; O2SAT 98
--- NOTE | 2022-12-09 07:00 | CA_ITS ---
Transthoracic Echocardiogram Patient (Last, First, Middle): Franky Espana A Gender: Male Date of : 1975 Age: 47 Procedure Date: 12/09/2022 Procedure Type: Transthoracic Echocardiogram Location: ER Height: 175.26 cm Weight: 90.72 kg BSA: 2.07 m2 Heart Rate: 93 bpm BP: 155 / 95 mmHg Hyster Machine Operator: SB Referring MD: Gian Reynaga MD Symptoms: chest pain Study Quality: Adequate w contrast ECG Rhythm: Sinus Conclusions: - The left ventricular systolic function is moderately decreased. The calculated ejection fraction is 38% by biplane method. - The inferoseptal wall and basal inferior segment are hypokinetic. - The inferolateral wall and mid inferior segment are akinetic. - No obvious valvular pathology seen on this study. Findings Left Ventricle Mildly increased left ventricular cavity size. The left ventricular systolic function is moderately decreased. The calculated ejection fraction is 38% by biplane method. There is evidence of regional wall motion abnormalities. Diastolic function is normal for age. There is mild septal asymmetric hypertrophy. Wall Motion Rest Echo Findings The inferoseptal wall and basal inferior segment are hypokinetic. The inferolateral wall and mid inferior segment are akinetic. Right Ventricle Normal right ventricular cavity size and systolic function. Aortic Valve There is a normal trileaflet aortic valve. There is no aortic valve stenosis. There is no aortic valve regurgitation. Mitral Valve The mitral valve appears normal. There is no mitral valve regurgitation. There is no mitral valve stenosis. Pulmonic Valve The pulmonic valve is likely normal. Tricuspid Valve There is trace tricuspid valve regurgitation. There is no evidence of pulmonary hypertension. Great Vessels The asc aorta and aortic arch are normal in size. Venous The inferior vena cava was not well visualized. Pericardium/Pleural There is no evidence of pericardial effusion. Prior Study Comparison No prior study available for comparison. Recommendations, Care & Conclusions No obvious valvular pathology seen on this study. Measurements 2D Linear Measurements IVSd: 1.11 0.6-0.9/0.6-1.0 cm LVIDd: 5.55 3.9-5.3/4.2-5.9 cm LVIDd Index: 2.68 2.4-3.2/2.2-3.1 cm/m2 LVIDs: 4.41 2.0-3.6 cm LVPWd: 0.68 0.7-1.1 cm LA Diam: 4.60 2.7-3.8/3.0-4.0 cm LAIDs Index: 2.22 1.5-2.3 cm/m2 LV Mass: 233.14 67-162/88-224 g LV Mass Index: 112.63 43-95/49-115 g/m2 LVOT Diam: 2.30 3.0+(-)1.3 cm 2D Systolic Function EF 4C: 39.20 >55% EF 2C: 37.10 >55% EF BiP: 38.30 >55% Mitral Valve MV Pk E: 0.93 MV PK A: 0.87 MV Decel Time: 180.00 E/A: 1.10 E'Lateral: 8.70 E'Medial: 7.72 E/E' Med: 12.10 E/E' Lat: 10.70 PHT: 53.00 MVA PHT: 4.15 Decel [place]: 5.18 Aortic Valve AoV Pk Carlos: 1.32 AoV Pk Grad: 7.00 DIONISIO: 3.39 LVOT LVOT Pk Carlos: 1.02 LVOT Mn [place]: 0.66 LVOT VTI: 0.19 LVOT Pk Grad: 4.00 LVOT Mn Grad: 2.00 LVOT Diam: 2.30 LVOT Area: 4.15 Diastolic Function MV Pk E: 0.93 MV Pk A: 0.87 E/A: 1.10 E'Medial: 7.72 E/E' Med: 12.10 E' Laterial: 8.70 E/E' Lat: 10.70 Right Ventricle TAPSE (mm): 22.40 TVS' Carlos: 13.60 Tricuspid Valve TR Pk Carlos: 2.23 TR Pk Grad: 20.00 RA Press: 3.00 RVSP: 23.00 Great Vessels Aorta Sinus of Valsalva: 3.50 2.0-3.5 cm Ao Asc: 3.40 2.1-3.4 cm Ao Arch: 2.80 Ao Desc: 2.30 Pulmonary Veins Pulm Vein S/D 1.80 Pulmonary Valve PV Pk Carlos: 1.26 Peak PV Grad: 6.00 Updated in Other Vendor System with Status of Final Neal Pratt MD electronically signed on 12/09/2022 9:57:04 AM with status of Final
[2022-12-09 07:04] LABS: Glucose, Whole Blood 111 mg/dL (60-115)
--- NOTE | 2022-12-09 07:06 | PC.NURSE ---
Alert and oriented. Denies chest pain, but states has headache and some dizziness. States pain in head is 2/10, does not want anything for pain at this time.Reports feeling better than upon arrival. POC 111. Sinus tachy on monitor. vss. Eating beakfast at this time, at bedside. Aware that plan is to be admitted when there is a bed ready upstairs.
--- NOTE | 2022-12-09 07:35 | PHA.MEDREC ---
Pharmacy Consult ? Medication Reconciliation Pharmacy has completed the medication reconciliation.
[2022-12-09] MEDS: Nicotine 14 MG PATCH.TD24 TRANSDERMA (07:57)
[2022-12-09] MEDS: Potassium Chloride Packet 20 MEQ PACKET 40 MEQ PO (07:58)
[2022-12-09 08:04] LABS: Estimated Average Glucose 103 mg/dL; Hemoglobin A1c % 5.2 %
[2022-12-09 08:25] LABS: Magnesium 1.8 mg/dL (1.6-2.6)
[2022-12-09 08:52] LABS: Ferritin 457 ng/mL (20-250)
--- NOTE | 2022-12-09 09:03 | MHC.EDTECH ---
pt ate 100% of breakfast
--- NOTE | 2022-12-09 09:14 | PM.CNCAR ---
History of Present Illness History of Present Illness Date of Service: 12/09/22 Chief complaint: chest pain Narrative: This is a cardiology consultation regarding chest pain. Patient has not apparently seen a doctor in a while. He works in [employer]. Regular smoker as well as probably excessive alcohol use as he drinks apparently lot of beer daily. He presents with complaints of chest pain. He states that he feels a discomfort in the substernal and left chest area and also in the left arm. This happens intermittently. No specific provoking or relieving factors. Specifically when asking about exertion characteristics, he is not able to state one way or another. Using sumac tanner to discuss the same. Otherwise, he also feels short of breath and sweaty intermittently. No documented coronary disease myocardial infarction or cardiomyopathy. Blood pressure is on the higher side since admission, but not tremendously high. Denies any family history of premature CAD. Review of Systems Review of Systems: Yes all other systems are reviewed and are negative Constitutional: Constitutional: Reports as per HPI and Reports no additional constitutional complaints Eyes: Eyes: Reports as per HPI and Denies no additional eye complaints ENT: Denies system reviewed and no additional complaints, except as documented and Reports as per HPI Cardiovascular: Cardiovascular: Reports as per HPI, Reports no additional cardiovascular complaints, Denies acrocyanosis, Denies cool extremities, Reports chest pain, Denies leg edema, Denies lightheadedness, Denies palpitations and Reports dyspnea Respiratory: Respiratory: Reports as per HPI, Denies no additional respiratory complaints and Reports dyspnea Gastrointestinal: Gastrointestinal: Reports as per HPI and Denies no additional gastrointestinal complaints Genitourinary: Genitourinary: Reports no additional male genitourinary complaints and Reports as per HPI Musculoskeletal: Musculoskeletal: Reports no additional musculoskeletal complaints and Reports as per HPI Integumentary/Breasts: Skin/Breast: Reports system reviewed and no additional complaints, except as docu Neurologic: Reports system reviewed and no additional complaints, except as documented and Reports as per HPI Psychiatric: Psychiatric: Reports no additional psychiatric complaints and Reports as per HPI Endocrine: Endocrine: Reports no additional endocrine complaints, Reports as per HPI and Denies palpitations Hematologic/Lymphatic: Hematologic/Lymphatic: Reports no additional hematologic/lymphatic complaints and Reports as per HPI Allergic/Immunologic: Allergic/Immunologic: Reports no additional allergic/immunologic complaints and Reports as per HPI [facility] Past Medical History Medical History Tobacco use disorder Family History Family History (Updated 12/09/22 @ 09:17 by Neal Pratt MD) Father Prostate cancer Social History Social History Alcohol intake: current Alcohol intake frequency: a few times a week Alcohol type: beer Patient Tobacco Use Status: Current everyday Tobacco user Smoked in Last 30 Days: Yes Use of substances other than those prescribed or required for medical reasons: No Advance Directives: No Advance Directives Information Provided: No Nutrition Risks: No Nutritional Risk Current occupational status: employed Current occupation: [employer] Allergies Allergy/AdvReac Type Severity Reaction Status Date / Time No Known Allergies Allergy Verified 01/13/22 13:36 [No Known Allergies*] Active Medications: Current Medications Acetaminophen (Acetaminophen 325 Mg Tablet) 650 mg PO Q6H PRN PRN Reason: Pain, Mild (Pain Scale 1-3) Last Admin: 12/09/22 06:39 Dose: 650 mg Dextrose (Dextrose 50 % 25 Gm/50 Ml Syringe) 25 gm IVPUSH Q15M PRN; Protocol PRN Reason: per Hypoglycemia Standing Ord. Enoxaparin Sodium (Enoxaparin Sodium 40 Mg/0.4 Ml Syringe) 40 mg SUBCUT Q24H AMY Last Admin: 12/08/22 22:59 Dose: 40 mg Glucose (Glucose Gel 15 Gm Gel..Gram.) 15 gm PO Q15M PRN; Protocol PRN Reason: per Hypoglycemia Standing Ord. Potassium Chloride (Potassium Chloride/H20) 10 meq in 100 mls @ 100 mls/hr IV Q1H AMY Stop: 12/09/22 10:44 Last Admin: 12/09/22 09:10 Dose: 100 mls/hr Insulin Human Lispro (Insulin Lispro 100 Unit/Ml 3 Ml Vial) 0 unit SUBCUT QIDACHS AMY; Protocol Last Admin: 12/09/22 07:27 Dose: Not Given Melatonin (Melatonin 3 Mg Tablet) 6 mg PO BEDTIME PRN PRN Reason: Insomnia Nicotine (Nicotine 14 Mg Patch.Td24) 14 mg TRANSDERMA DAILY AMY Last Admin: 12/09/22 07:57 Dose: 14 mg Ondansetron HCl (Ondansetron Hcl 4 Mg/2 Ml Vial) 4 mg IVPUSH Q8H PRN PRN Reason: Nausea and Vomiting Sodium Chloride (0.9 % Sodium Chloride Flush 3 Ml Syringe) [facility] Last Admin: 12/09/22 06:58 Dose: 3 ml Home Medications Medication Instructions Recorded Confirmed Last Taken Type No Known Home Meds 12/09/22 12/09/22 Unknown History Physical Exam Vital Signs: Vital Signs: Last Vital Signs Temp 99.0 F 12/09/22 06:55 Pulse 89 12/09/22 06:55 Resp 21 H 12/09/22 06:55 BP 145/90 H 12/09/22 06:55 Pulse Ox 98 12/09/22 06:55 O2 Del Method Room Air 12/09/22 06:55 BMI result Body Mass Index 29.5 Const: General: comfortable and no acute distress Orientation/consciousness: patient oriented x3 HEENT: Other: Unremarkable Head: Yes normal to inspection Neck: Neck: Yes normal visual inspection Chest: Chest palpation & inspection: normal inspection of the chest Resp: Auscultation: clear to auscultation bilaterally Cardio: Palpation: normal PMI Heart sounds: S1 normal heart sound present, S2 normal heart sound present, no gallops, Murmur heart sound present systolic II/ and at the left sternal border and no rubs GI: Palpation (GI): Soft to palpation Back/Spine/Pelvis: Other: unremarkable Skin: General skin exam: no rashes or lesions noted Neuro: General: patient oriented x3 Extrem: General: Yes normal to inspection Psych: Mental Status: mental status grossly normal Objective Labs and Meds 12/09/22 05:59 12/09/22 05:59 Lab results: Laboratory Results - last 24 hr 12/08/22 12/08/22 12/08/22 21:07 21:07 21:07 WBC 14.6 H RBC 4.28 L D Hgb 9.9 L Hct 30.3 L MCV 70.8 L MCH 23.1 L MCHC 32.7 RDW 17.5 H Plt Count 267 D MPV 11.2 Immature Gran % (Auto) 0.6 H Neut % (Auto) 74.3 H Lymph % (Auto) 16.5 L [place] % (Auto) 6.6 Eos % (Auto) 1.2 Baso % (Auto) 0.8 Lymph # (Auto) 2.4 [place] # (Auto) 1.0 Eos # (Auto) 0.2 Baso # (Auto) 0.1 Abs Immat Gran (auto) 0.09 H Absolute Neuts (auto) 10.8 H Absolute Nucleated RBC 0.040 H Nucleated RBC % (auto) 0.3 H PT 13.2 H INR 1.1 Sodium 142 Potassium 2.4 L* D Chloride 105 Carbon Dioxide 20 L Anion Gap 19 BUN 4 L Creatinine 0.76 Estim Creat Clear Calc 136.6 Estimated GFR > 60 POC Glucose Random Glucose 192 H Estimat Average Glucose Hemoglobin A1c % Calcium 8.8 Magnesium 2.3 Iron 202 H TIBC 341 % Saturation 59 H Unsat Iron Binding 139 Ferritin Total Bilirubin 1.1 H AST 65 H ALT 42 H Alkaline Phosphatase 110 Troponin I High Sens Total Protein 7.1 Albumin 3.9 COVID-19 (NATALI) COVID-19 [employer] 12/08/22 12/08/22 12/08/22 21:07 21:07 22:09 WBC RBC Hgb Hct MCV MCH MCHC RDW Plt Count MPV Immature Gran % (Auto) Neut % (Auto) Lymph % (Auto) [place] % (Auto) Eos % (Auto) Baso % (Auto) Lymph # (Auto) [place] # (Auto) Eos # (Auto) Baso # (Auto) Abs Immat Gran (auto) Absolute Neuts (auto) Absolute Nucleated RBC Nucleated RBC % (auto) PT INR Sodium Potassium Chloride Carbon Dioxide Anion Gap BUN Creatinine Estim Creat Clear Calc Estimated GFR POC Glucose Random Glucose Estimat Average Glucose 103 Hemoglobin A1c % 5.2 Calcium Magnesium Iron TIBC % Saturation Unsat Iron Binding Ferritin Total Bilirubin AST ALT Alkaline Phosphatase Troponin I High Sens 3.2 3.1 Total Protein Albumin COVID-19 ([facility]I) COVID-19 [employer] Com 12/08/22 12/09/22 12/09/22 22:09 05:59 05:59 WBC 10.3 RBC 3.85 L Hgb 9.0 L Hct 27.3 L MCV 70.9 L MCH 23.4 L MCHC 33.0 RDW 17.2 H Plt Count 250 MPV 11.4 Immature Gran % (Auto) 0.6 H Neut % (Auto) 67.9 Lymph % (Auto) 22.7 [place] % (Auto) 5.4 Eos % (Auto) 2.7 Baso % (Auto) 0.7 Lymph # (Auto) 2.4 [place] # (Auto) 0.6 Eos # (Auto) 0.3 Baso # (Auto) 0.1 Abs Immat Gran (auto) 0.06 H Absolute Neuts (auto) 7.0 Absolute Nucleated RBC 0.040 H Nucleated RBC % (auto) 0.4 H PT INR Sodium 142 Potassium 3.1 L D Chloride 108 Carbon Dioxide 24 Anion Gap 13 BUN 4 L Creatinine 0.65 Estim Creat Clear Calc 159.7 Estimated GFR > 60 POC Glucose Random Glucose 109 Estimat Average Glucose Hemoglobin A1c % Calcium 8.1 L D Magnesium 1.8 Iron TIBC % Saturation Unsat Iron Binding Ferritin 457 H Total Bilirubin AST ALT Alkaline Phosphatase Troponin I High Sens Total Protein Albumin COVID-19 ([facility]I) Negative COVID-19 Clin Com See Note 12/09/22 12/09/22 05:59 07:00 WBC RBC Hgb Hct MCV MCH MCHC RDW Plt Count MPV Immature Gran % (Auto) Neut % (Auto) Lymph % (Auto) [place] % (Auto) Eos % (Auto) Baso % (Auto) Lymph # (Auto) [place] # (Auto) Eos # (Auto) Baso # (Auto) Abs Immat Gran (auto) Absolute Neuts (auto) Absolute Nucleated RBC Nucleated RBC % (auto) PT INR Sodium Potassium Chloride Carbon Dioxide Anion Gap BUN Creatinine Estim Creat Clear Calc Estimated GFR POC Glucose 111 Random Glucose Estimat Average Glucose Hemoglobin A1c % Calcium Magnesium Iron TIBC % Saturation Unsat Iron Binding Ferritin Total Bilirubin AST ALT Alkaline Phosphatase Troponin I High Sens 3.2 Total Protein Albumin COVID-19 (NATALI) COVID-19 Clin Com ECG Interpretation: EKG with sinus rhythm at 01:03/Min; cannot exclude old inferior infarct; nonspecific ST-T changes; corrected QT is prolonged at 497 milliseconds. Imaging Radiologist's impression: Impressions Chest X-Ray 12/08/22 22:45 IMPRESSION: Unremarkable chest examination. Assessment and Plan (1) Chest pain: Status: Acute (2) Acute hypokalemia: Status: Acute (3) Anemia: Status: Inactive Plan In the labs, slightly anemic at 9. Potassium is low at 2.4 but improved to 3.1. This could be from alcohol excess. LFTs slightly abnormal again possibly from alcohol. High sensitivity troponins are within range. Echocardiogram is pending. Overall, symptoms are concerning. Could be anginal nature but then on exertional characteristics are somewhat contradictory. Any case, he will need further workup. To decide between stress test versus cardiac catheterization. Will review the echocardiogram. Any wall motion abnormalities will guide us towards rather catheterization. If not, then possibly a stress test. Will follow up with you closely. Otherwise, potassium needs to be corrected. Also not sure why he is anemic. That will also need to be looked into. Alcohol/smoking cessation. Discussed with . Discussed with patient's at the bedside. sumac tanner used in this encounter. Time Spent With Patient Time: Total time managing care of this patient today ____ minutes. Procedures Date of Service Date of Service: 12/09/22
--- NOTE | 2022-12-09 09:51 | PC.NURSE ---
Report given to accepting unit
[2022-12-09 10:06] VITALS: BP 154/88; PULSE 94; RESP 20; TEMP 37.2; O2SAT 97
--- NOTE | 2022-12-09 10:49 | MHC.CM.PN ---
Per ROUNDS discussion, dc/transfer to [facility] for Cardiac Cath is likely. Patient lives in n apartment with his Uncle and he is functionally independent and working. CM has initiated and will follow for dc planning. Patient is jocelyn leon'giulia x4 and his new PCP is Dr. Hernández.
--- NOTE | 2022-12-09 10:55 | P.DS_ITS ---
DS: Providers Provider Date of Service: 12/09/22 Date of admission: 12/09/22 10:53 Date of discharge: 12/09/22 Primary care physician: Unknown Physician Consults: 12/08/22 22:48 Consult to Cardiology Routine Consulting Provider: [facility] Cardiovascular Services Reason for consultation: Chest pain Has provider been notified: Yes DS: Diagnosis Discharge Diagnosis (1) Chest pain: Status: Acute (2) Acute hypokalemia: Status: Acute (3) Anemia: Status: Inactive (4) Cardiomyopathy: Status: Acute (5) Acute coronary syndrome: Status: Acute (6) Iron deficiency anemia: Status: Acute (7) Tobacco use disorder: Status: Acute DS: Summary Hospital Course Hospital Course: from admission H+P by hospitalist Momo Reynaga MD, 12/08/22: This is a 47-year-old male with pertinent history of tobacco use disorder presents emergency department for evaluation of chest discomfort.? Patient has not seen a doctor in a while and does not take any prescription medications.? Patient works in [employer] and about 2 days prior to presentation, patient noticed midsternal chest discomfort that worsened with exertion and radiated to the left arm.? No relief with rest.? Patient states over the last 2 days, he has had on and off chest discomfort.? Patient denies fever, chills, shortness of breath, palpitations, changes in urinary habits.? He also complains of nonbloody diarrhea that has been ongoing for the last few days. In the emergency department, patient's potassium found to be low. from cardiology consultation by Neal Pratt MD, 12/09/22: This is a cardiology consultation regarding chest pain.? Patient has not apparently seen a doctor in a while.? He works in [employer].? Regular smoker as well as probably excessive alcohol use as he drinks apparently lot of beer daily.? He presents with complaints of chest pain.? He states that he feels a discomfort in the substernal and left chest area and also in the left arm.? This happens intermittently.? No specific provoking or relieving factors.? Specifically when asking about exertion characteristics, he is not able to state one way or another.? Using science interpreter to discuss the same.? Otherwise, he also feels short of breath and sweaty intermittently.? No documented coronary disease myocardial infarction or cardiomyopathy.? Blood pressure is on the h igher side since admission, but not tremendously high.? Denies any family history of premature CAD. He was admitted to the [facility]. Chest pain resolved. Cardiology consulted as above. Troponins flat/negative. But echocardiogram showed reduced LVEF of 38% along with multiple wall motion abnormalities. He was started on heparin drip, aspirin, metoprolol tartrate, and atorvastatin, then transferred to [facility] for diagnostic cardiac catheterization. Low potassium level was repleted and was likely due to diarrhea. Workup of diarrhea pending along with fecal occult blood to determine why he is anemic. Time Spent with Patient Time attestation: Total time managing care of this patient today __35__ minutes. Discharge coordination time: Greater than 30 minutes Quality: Safe Use of Opioids Does Pt have an Active Cancer Diagnosis on the Problem List?: No Quality: Stroke Does the patient have a stroke diagnosis?: No Physical Exam Vital Signs: Vital Signs: Last Vital Signs Temp 98.9 F 12/09/22 10:06 Pulse 94 12/09/22 10:06 Resp 20 12/09/22 10:06 BP 154/88 H 12/09/22 10:06 Pulse Ox 97 12/09/22 10:06 O2 Del Method Room Air 12/09/22 10:06 BMI result Body Mass Index 29.5 Gen: in no acute distress HEENT: sclera anicteric, moist mucus membranes Neck: supple Lungs: clear to auscultation bilaterally Heart: regular rate and rhythm, no murmurs Abd: soft, non-tender, non-distended Ext: no edema Skin: warm/well-perfused Neuro: alert and oriented x3, no focal findings Psych: appropriate affect DS: Data Data Completed and Pending Completed studies during hospitalization [Text1]: Laboratory Results WBC 10.3 X10*3/uL (4.8-10.8) 12/09/22 05:59 RBC 3.85 X10*6/uL (4.60-5.80) L 12/09/22 05:59 Hgb 9.0 g/dl (14.0-18.0) L 12/09/22 05:59 Hct 27.3 % (42.0-52.0) L 12/09/22 05:59 MCV 70.9 fL (80.0-98.0) L 12/09/22 05:59 MCH 23.4 pg (27.0-33.0) L 12/09/22 05:59 MCHC 33.0 g/dl (31.0-36.0) 12/09/22 05:59 RDW 17.2 % (11.0-16.0) H 12/09/22 05:59 Plt Count 250 X10*3/uL (160-400) 12/09/22 05:59 MPV 11.4 fL (9.4-12.4) 12/09/22 05:59 Immature Gran % (Auto) 0.6 % (0.0-0.4) H 12/09/22 05:59 Neut % (Auto) 67.9 % (45-73) 12/09/22 05:59 Lymph % (Auto) 22.7 % (20-40) 12/09/22 05:59 [place] % (Auto) 5.4 % (2-11) 12/09/22 05:59 Eos % (Auto) 2.7 % (0-4) 12/09/22 05:59 Baso % (Auto) 0.7 % (0-2) 12/09/22 05:59 Lymph # (Auto) 2.4 X10*3/uL (1.2-4.9) 12/09/22 05:59 [place] # (Auto) 0.6 X10*3/uL (0.1-1.2) 12/09/22 05:59 Eos # (Auto) 0.3 X10*3/uL (0.0-0.4) 12/09/22 05:59 Baso # (Auto) 0.1 X10*3/uL (0.0-0.2) 12/09/22 05:59 Abs Immat Gran (auto) 0.06 X10*3/uL (0.00-0.03) H 12/09/22 05:59 Absolute Neuts (auto) 7.0 x10*3/uL (2.0-8.3) 12/09/22 05:59 Absolute Nucleated RBC 0.040 X10*3/uL (0.0-0.012) H 12/09/22 05:59 Nucleated RBC % (auto) 0.4 /100WBC (0.0-0.2) H 12/09/22 05:59 PT 13.2 SEC (10.0-13.1) H 12/08/22 21:07 INR 1.1 (0.9-1.1) 12/08/22 21:07 Sodium 142 mmol/L (135-145) 12/09/22 05:59 Potassium 3.1 mmol/L (3.3-5.1) L D 12/09/22 05:59 Chloride 108 mmol/L (96-108) 12/09/22 05:59 Carbon Dioxide 24 mmol/L (22-29) 12/09/22 05:59 Anion Gap 13 (12-20) 12/09/22 05:59 BUN 4 mg/dL (9-16) L 12/09/22 05:59 Creatinine 0.65 mg/dL (0.5-1.4) 12/09/22 05:59 Estim Creat Clear Calc 159.7 12/09/22 05:59 Estimated GFR > 60 12/09/22 05:59 POC Glucose 111 mg/dL (60-115) 12/09/22 07:00 Random Glucose 109 mg/dL (60-115) 12/09/22 05:59 Estimat Average Glucose 103 mg/dL 12/08/22 21:07 Hemoglobin A1c % 5.2 % 12/08/22 21:07 Calcium 8.1 mg/dL (8.4-10.2) L D 12/09/22 05:59 Magnesium 1.8 mg/dL (1.6-2.6) 12/09/22 05:59 Iron 202 mcg/dL (45-160) H 12/08/22 21:07 TIBC 341 mcg/dL (228-428) 12/08/22 21:07 % Saturation 59 % (15-50) H 12/08/22 21:07 Unsat Iron Binding 139 ug/dL 12/08/22 21:07 Ferritin 457 ng/mL (20-250) H 12/09/22 05:59 Total Bilirubin 1.1 mg/dL (0.0-1.0) H 12/08/22 21:07 AST 65 U/L (5-37) H 12/08/22 21:07 ALT 42 U/L (0-40) H 12/08/22 21:07 Alkaline Phosphatase 110 U/L (39-117) 12/08/22 21:07 Troponin I High Sens 3.2 ng/L (<3.5-35.0) 12/09/22 05:59 Total Protein 7.1 g/dL (6.5-8.0) 12/08/22 21:07 Albumin 3.9 g/dL (3.5-5.0) 12/08/22 21:07 COVID-19 (NATALI) Negative (Negative) 12/08/22 22:09 COVID-19 Clin Com See Note 12/08/22 22:09 Impressions Chest X-Ray 12/08/22 22:45 IMPRESSION: Unremarkable chest examination. TTE 12/09/22 - The left ventricular systolic function is moderately decreased. The calculated ejection fraction is 38% by biplane method. ? ? ? - The inferoseptal wall and basal inferior segment are ? hypokinetic. ? - The inferolateral wall and mid inferior segment are akinetic.? - No obvious valvular pathology seen on this study.?? Discharge Plan Discharge Anticipated Discharge Date/Time: 12/09/22 10:45 Patient Disposition: Xfer Acute Care Hospital Discharge Diagnosis: cardiomyopathy, acute coronary syndrome, hypokalemia, iron deficiency anemia Referrals: [facility] [Outside] - 1 Week Physician,Unknown J [Primary Care Provider] - 1 Week Discharge Medications: New atorvastatin 80 mg Tablet 80 mg PO DAILY Qty: 1 0RF nicotine 14 mg/24 hr Patch 24 Hour 14 mg transdermal DAILY Qty: 1 0RF aspirin 81 mg Tablet,Chewable 81 mg PO DAILY Qty: 1 0RF heparin (porcine) 5,000 unit/mL Solution 7,300 unit IVPUSH PROTOCOL BOLUS PRN (Reason: 80 Unit/Kg - Heparin Protocol) Qty: 1 0RF heparin (porcine) 5,000 unit/mL Solution 3,600 unit IVPUSH PROTOCOL BOLUS PRN (Reason: 40 Unit/Kg - Heparin Protocol) Qty: 1 0RF metoprolol tartrate 25 mg Tablet 25 mg PO BID Qty: 1 0RF Protocol: Hold for SBP/HR < HOLD for SBP < : 90 HOLD for HR < : 60 heparin(porcine) in 0.45% NaCl 25,000 unit/250 mL Parenteral Solution 25,000 unit continuous IV infusion .Q0M Qty: 1 0RF Discharge Orders: Discharge Order (Routine); Ordered 12/09/22 Ordered By: Senia Burns Diet: Advance to usual diet Activity on Discharge: As tolerated Stand Alone Forms: Patient Portal Discharge page Care Plan Goals: diagnosis and management of cardiac issues Health Concerns: cardiomyopathy, acute coronary syndrome, hypokalemia, iron deficiency anemia Plan of Treatment: transfer to [facility] for cardiac catheterization Assessment: See Discharge Summary.
--- NOTE | 2022-12-09 10:56 | MHC.CM.PN ---
Patient has a dc order for transfer to [facility].
[2022-12-09] MEDS: Atorvastatin Calcium 80 MG TABLET PO (11:16)
[2022-12-09] MEDS: Metoprolol Tartrate 25 MG TABLET PO (11:16)
[2022-12-09] MEDS: Heparin Sodium,Porcine/1/2NS 25,000 UNIT/250 ML IV.SOLN 10 UNIT IVCONT (11:21)
[2022-12-09 11:40] LABS: Glucose, Whole Blood 118 mg/dL (60-115)
[2022-12-09 11:57] LABS: INTERNATIONAL NORM RATIO 1.2 (0.9-1.1); Prothrombin Time 13.9 SEC (10.0-13.1)
[2022-12-09 12:00] VITALS: BP 145/76; PULSE 90; RESP 20; TEMP 36.6; O2SAT 96
[2022-12-09 13:51] LABS: OBS Int Ctl Valid YES; OBS1 NEGATIVE (NEGATIVE)
[2022-12-09 14:18] LABS: Leukocytes Stool Qualitative NEGATIVE (NEGATIVE)
[2022-12-09 14:38] LABS: CDiff Gene PCR NEGATIVE (Negative)
--- NOTE | 2022-12-09 14:56 | PC.NURSE ---
report given to [facility] RN and EMS staff. pt transported on heparin dirp. paperwork given to EMS staff. pt and pt's updated.
[2022-12-09 16:53] LABS: Adenovirus F 40/41 Not Detected (Not Detect.); Astrovirus Not Detected (Not Detect.); Campylobacter Not Detected (Not Detect.); Cryptosporidium Not Detected (Not Detect.); Cyclospora cayetanensis Not Detected (Not Detect.); E. coli EAEC Not Detected (Not Detect.); E. coli EPEC Detected (Not Detect.); E. coli ETEC Not Detected (Not Detect.); E. coli STEC Not Detected (Not Detect.); Entamoeba histolytica Not Detected (Not Detect.); Norovirus GI/GII Not Detected (Not Detect.); Plesiomonas shigelloides Not Detected (Not Detect.); Rotavirus A Not Detected (Not Detect.); Salmonella Not Detected (Not Detect.); Sapovirus Not Detected (Not Detect.); Shigella sp./EIEC Not Detected (Not Detect.); Vibrio Not Detected (Not Detect.); Vibrio Cholerae Not Detected (Not Detect.); Yersinia enterocolitica Not Detected (Not Detect.)
[2022-12-09 16:55] LABS: Giardia lamblia Detected (Not Detect.)
== END 2022-12-09 14:57 | disposition short-term general hospital (02) | DRG 198 ==
LOC: HO.ED 22:03 → HO.EDOVER 22:50 → HO.IMC 12-09 07:14
PROVIDERS: Admitting Provider Student in an Organized Health Care Education/Training Program; Emergency Provider Emergency Medicine Emergency Medical Services; PCP Internal Medicine; Visit Provider Family Medicine
DX: I24.9 Acute ischemic heart disease, unspecified (principal); I42.9 Cardiomyopathy, unspecified; F17.210 Nicotine dependence, cigarettes, uncomplicated; D50.9 Iron deficiency anemia, unspecified; E87.6 Hypokalemia; R73.9 Hyperglycemia, unspecified; Z20.822 Contact with and (suspected) exposure to COVID-19; Z71.6 Tobacco abuse counseling; Z79.82 Long term (current) use of aspirin; Z79.899 Other long term (current) drug therapy
CPT/HCPCS: 36415; 71045; 80048; 80053; 82272; 82728; 82947; 83036; 83540; 83735; 84484; 85025; 85610; 87493; 87507; 87635; 89055; 93005; 93306; 99285; J1643; J1650; Q9957

== ENCOUNTER 2023-01-14 08:14 | Outpatient (AMB) | payer SELFPAY ==
[2023-01-14 08:17] VITALS: BP 150/80; PULSE 102; BMI 30.3
--- NOTE | 2023-01-14 08:17 | MHC.OFFVIS ---
Intake Vital Signs 01/14/23 08:17 Height 5 ft 9 in Weight 205 lb 0.478 oz BMI 30.3 BP 150/80 H Blood Pressure Location Lt brachial Position Sitting Pulse 102 H Pulse Source Pulse Oximeter Intake Visit Reasons: follow up per HS Intake Note: follow up per Hs Allergies No Known Allergies [No Known Allergies*] Allergy (Verified 01/14/23 08:24) Medication List - Last Reconciled 01/14/23 by Anastasia Davis NP-Erick aspirin 81 mg PO DAILY atorvastatin 80 mg PO DAILY folic acid 1 mg PO DAILY heparin (porcine) 7,300 units (1.46 mL) IVPUSH PROTOCOL BOLUS PRN heparin (porcine) 3,600 units (0.72 mL) IVPUSH PROTOCOL BOLUS PRN heparin(porcine) in 0.45% NaCl 25,000 unit/250 mL 25,000 units (250 mL) continuous IV infusion .Q0M lisinopril 2.5 mg PO DAILY metoprolol tartrate 25 mg See Protocol PO BID potassium chloride ER 20 mEq PO BID HPI follow up per HS HPI Details Franky is a 47-year-old male with past medical history of smoking, alcohol use, who was recently admitted to [facility] for chest discomfort. His troponin levels were normal. Echocardiogram showed reduced EF and wall motion abnormality. He was transferred to [facility] and underwent cardiac catheterization showing normal coronaries. Today he reports that he was admitted to [facility] again 2 weeks ago for increasing shortness of breath. The records from that admission are not available initially at my visit. He tells me that his breathing is now improved. 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 He has no chest discomfort at rest or with activity. No heart palpitations, dizziness, presyncope, syncope, PND, orthopnea or edema. He is reporting good hydration at work, compliance with medications. According to he drinks a few beers each day and some fireball whiskey. Patient has not cut back his alcohol use [facility] Medical History Tobacco use disorder Surgical History S/P cardiac catheterization Family History Father Prostate cancer Social History Household Members: Family Housing: Apartment Do you presently have visiting nurse or other home services: No Alcohol intake: current Alcohol intake frequency: a few times a week Alcohol type: beer Patient Tobacco Use Status: Current everyday Tobacco user Tobacco use type: Cigarette Cigarettes Per Day: 7 service: No Current occupational status: employed Current occupation: diesel pile driver operator Review of Systems Const All systems reviewed & are unremarkable except as noted in HPI and below ENT Reports dizziness Card Denies chest pain, Denies chest pain at rest, Denies chest pain with activity, Denies rapid heart rate, Denies pedal edema, Denies edema, Denies leg edema, Denies lightheadedness, Denies palpitations, Denies dyspnea, Denies dyspnea on exertion and Denies orthopnea Resp Denies cough, Denies dyspnea and Denies dyspnea on exertion GI Denies hematochezia and Denies change in stool character Musc Denies abnormal gait, Reports limited range of motion, Reports muscle cramps, Denies muscle weakness, Denies numbness, Denies radiating pain into limb, Denies stiffness and Denies tingling Neuro Denies abnormal gait, Reports dizziness, Denies numbness and Denies tingling Endo Denies palpitations Physical Exam Vital Signs: Last Vital Signs Pulse 102 H 01/14/23 08:17 BP 150/80 H 01/14/23 08:17 BMI result Body Mass Index 30.3 Const General: cooperative, healthy appearing, comfortable and no acute distress Orientation/consciousness: patient oriented x3 Neck Neck: Yes normal visual inspection Resp Effort & Inspection: normal respiratory effort Auscultation: clear to auscultation bilaterally, no crackles, no rales, no rhonchi and no wheezes Cardio Jugular venous distension: no JVD Rate: regular rate Rhythm: regular rhythm Heart sounds: S1 normal heart sound present, S2 normal heart sound present, no murmurs and no rubs GI Inspection: Yes normal to inspection Neuro General: patient oriented x3 Extrem General: Yes normal to inspection Psych Appearance: grossly normal Mental Status: mental status grossly normal Speech and movement: Normal speech and movement present Assessment & Plan Assessment & Plan (1) Cardiomyopathy: Code(s): I42.9 - Cardiomyopathy, unspecified Plan: [facility] admission last month with shortness of breath, chest discomfort. Troponins normal. EKG with sinus tach, can not exclude old inferior infarct. Echocardiogram showed EF 38%, inferior wall motion abnormality. His potassium was low and it was replaced. He was noted to have anemia with hemoglobin 9. He was transferred to [facility] and underwent cardiac catheterization on 12/10/2022 showing normal coronary arteries. He was continued on atorvastatin and metoprolol. He was instructed to stop alcohol intake. Today he reports that he was readmitted to [facility] on 01/05 due to chest discomfort. Labs from 01/05/2023 show hemoglobin 8.8, potassium 2.9. He was treated for alcohol intoxication and hypokalemia. Today he reports that he has been feeling better. No recurrent chest discomfort, no shortness of breath. 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 He reports good hydration and taking his meds as directed. With his anemia will have him stop aspirin. Hospital discharge note indicates iron deficiency anemia. This could be related to his alcohol abuse. Will refer to GI for evaluation. Blood pressure and pulse are elevated today. Will increase lisinopril to 5 mg daily and will change his metoprolol XL to carvedilol 6.25 mg b.i.d. Office blood pressure and pulse check in 2-3 weeks. Limited echo planned for 3 months from last. Due in February. reports witnessed apnea and patient has some daytime sleepiness. Will check sleep study to evaluate for YOAV. Cardiology follow-up 2-3 months, sooner if needed. ED care if needed for concerning symptoms (2) S/P cardiac catheterization: Comment: 12/10/2022, normal coronary artery Code(s): Z98.890 - Other specified postprocedural states Plan: As above (3) Acute coronary syndrome: Code(s): I24.9 - Acute ischemic heart disease, unspecified (4) Alcohol abuse: Code(s): F10.10 - Alcohol abuse, uncomplicated Plan: Strict importance of alcohol cessation reviewed with him. Informed that alcohol abuse can cause cardiomyopathy. (5) Iron deficiency anemia: Code(s): D50.9 - Iron deficiency anemia, unspecified Plan: Refer to GI for eval (6) Tobacco use disorder: Code(s): F17.200 - Nicotine dependence, unspecified, uncomplicated Plan: Benefits of smoking cessation reviewed (7) Acute hypokalemia: Code(s): E87.6 - Hypokalemia Plan: Patient on potassium supplement. Increasing his lisinopril dose (8) Hypersomnia: Code(s): G47.10 - Hypersomnia, unspecified Orders: Orders CA echo limited 2 Months I42.9 - Cardiomyopathy, unspecified RT home sleep study Today G47.10 - Hypersomnia, unspecified, I42.9 - Cardiomyopathy, unspecified Medications: New carvedilol must administer with a meal/food 6.25 mg PO BID 60 tabs 5RF lisinopril 5 mg PO DAILY 90 tabs 1RF Coding Level of Care Code Est Pt Level 4 (68623) Diagnoses Cardiomyopathy I42.9 S/P cardiac catheterization Z98.890 Acute coronary syndrome I24.9 Alcohol abuse F10.10 Iron deficiency anemia D50.9 Tobacco use disorder F17.200 Acute hypokalemia E87.6 Hypersomnia G47.10 Time Spent (min) 26 Comment Chart review, documentation, interview, assessment
== END 2023-01-14 09:11 | disposition home or self-care (01) ==
PROVIDERS: PCP Internal Medicine; Visit Provider Nurse Practitioner Family
DX: I42.9 Cardiomyopathy, unspecified (principal); Z98.890 Other specified postprocedural states; I24.9 Acute ischemic heart disease, unspecified; F10.10 Alcohol abuse, uncomplicated; D50.9 Iron deficiency anemia, unspecified; F17.200 Nicotine dependence, unspecified, uncomplicated; E87.6 Hypokalemia; G47.10 Hypersomnia, unspecified
CPT/HCPCS: 99214

== ENCOUNTER → 2023-01-14 08:14 | Outpatient (BNVA) | payer MEDICAID, OTHER, SELFPAY | PROVIDERS: PCP Internal Medicine; Visit Provider Nurse Practitioner Family | DX: I42.9 Cardiomyopathy, unspecified (principal); I24.9 Acute ischemic heart disease, unspecified; I10 Essential (primary) hypertension; D50.9 Iron deficiency anemia, unspecified; E87.6 Hypokalemia; G47.10 Hypersomnia, unspecified; F10.10 Alcohol abuse, uncomplicated; Z72.0 Tobacco use; Z98.890 Other specified postprocedural states | CPT/HCPCS: 99212 ==

== ENCOUNTER → 2023-02-11 08:55 | Outpatient (BNVA) | payer SELFPAY | PROVIDERS: PCP Internal Medicine; Visit Provider Nurse Practitioner Family ==

== ENCOUNTER 2023-04-29 09:27 | Emergency (ER) | payer MEDICAID, OTHER, SELFPAY ==
--- NOTE | ~2023-04-29 | XR_ITS ---
EXAMINATION: XR CHEST 2 VIEW CLINICAL INFORMATION: Anterior chest pain COMPARISON: 12/08/2022 TECHNIQUE: PA and lateral views of the chest obtained. FINDINGS: The lungs are clear. There are no pleural effusions. The cardiomediastinal silhouette is normal. XR/XR chest 2V IMPRESSION: No acute cardiopulmonary disease.
--- NOTE | 2023-04-29 09:30 | ECG_ITS ---
Test Reason : chest pain Blood Pressure : / mmHG Vent. Rate : 090 BPM Atrial Rate : 090 BPM P-R Int : 130 ms QRS Dur : 076 ms QT Int : 412 ms P-R-T Axes : 034 034 029 degrees QTc Int : 504 ms Normal sinus rhythm Normal ECG When compared with ECG of 08-DEC-2022 20:59, No significant change was found Referred By: Generic ED Physician Electronically Signed By:ROSARIO CHAVEZ MD
[2023-04-29 09:36] VITALS: BP 177/102; PULSE 87; RESP 19; TEMP 36.6; O2SAT 98; BMI 31.6
--- NOTE | 2023-04-29 09:55 | PC.NURSE ---
Addendum entered by Yoselin Perez RN 04/29/23 10:05: at bedside translating for pt. Pt also reports he has been having diarrhea immediately after eating any food x's weeks . Original Note: Pt presents today w/ complaints of chest pain since 0. Pt states he has had three episodes of this CP in which he reported to [facility] for evaluation of last episode. Pt states he was found to be hypokalemic, and potassium was replenished. Pt states he has a hx of HTN and a mild heart attack 4 months ago and underwent cardiac cath. Pt also states he was then started on lisinopril for tx of HTN. Pt states he takes this medication every morning, however, did not take it today. Pt is still experiencing CP and rates it a 5 on a 0-10 pain scale. Pt denies SOB at this time, however, was experiencing it initially when sx began.
[2023-04-29 10:01] VITALS: BP 162/95; PULSE 82; RESP 22; TEMP 36.7; O2SAT 98
--- OUTSIDE RECORDS SUMMARY | 2023-04-29 10:08 | XMS_ITS | Continuity of Care Document ---
Author Name Unknown Organization [facility] Address [address] [place] [address]- Care Team Providers Care Domestic Housekeeper Name Role Phone Zenon Doherty NP Primary Care Physician [phone] Encounter [facility] ACCT R [id number] Date(s): 12/18/22 - 03/01/23 [facility] [address] [place] [address]- Attending Physician: Anthony Do DO Admitting Physician: Anthony Do DO Referring Physician: Melba BLAND, Rhiannon Allergies, Adverse Reactions, Alerts No Known Allergies Immunizations Given and Recorded Vaccine Date Status Refusal Reason hepatitis B adult vaccine 01/24/23 Given pneumococcal 20-valent conjugate vaccine 12/12/22 Given [id number] 12y+ bivalent booster vax 06/25/22 Recorded SARS-CoV-2 (COVID-19) mRNA BNT-162b2 vac 07/31/21 Recorded SARS-CoV-2 (COVID-19) mRNA BNT-162b2 vac 10/23/20 Recorded SARS-CoV-2 (COVID-19) mRNA BNT-162b2 vac 09/29/20 Recorded influenza virus vaccine, inactivated 06/26/20 Give n influenza virus vaccine, inactivated 11/01/15 Give n tetanus/diphtheria/pertussis, acel(Tdap) 11/01/15 Given Medications aspirin 81 mg oral delayed release tablet 1 tablet = 81 mg, By Mouth, Daily, do not crush or chew, # 30 tablet, 11 Refills, Maintenance, 01/24/23 14:33:00 EDT, CR Tablet, [facility], Partial fill upon patient request if the prescription is for a schedule II opioid drug., 1... Start Date: 01/24/23 Stop Date: 01/19/24 Status: Ordered atorvastatin 80 mg oral tablet 1 tablet = 80 mg, By Mouth, Daily, # 30 tablet, 11 Refills, Maintenance, 12/12/22 15:04:00 EDT, [facility] #[id number], Partial fill upon patient request if the prescription is for a schedule IIopioid drug., 170, cm, 12/12/22 14:33:00 EDT, Hannah. Start Date: 12/12/22 Status: Ordered blood pressure machine & cuff blood pressure machine & cuff, See Instructions, # 1 each, Refills 0, Tot. Refills 0, Maintenance, sig: use as directed to measure blood pressure. dx: HTN I10. RUDY: 99, 01/24/23 14:54:00 EDT, Supply Start Date: 01/24/23 Status: Ordered folic acid 1 mg oral tablet 1 mg, By Mouth, Daily, # 30 capsule, Refills 0, Tot. Refills 0, Maintenance, 12/12/22 15:03:00 EDT,Route to Pharmacy Electronically, [facility] #[id number], Partial fill upon patient request ifthe prescription is for a schedule II opioid drug.,... Start Date: 12/12/22 Status: Ordered lisinopril 5 mg oral tablet 2.5 mg, By Mouth, Daily, # 30 capsule, Refills 11, Tot. Refills 11, Maintenance, 12/12/22 15:03:00 EDT, Route to Pharmacy Electronically, [facility] #[id number], Partial fill upon patient request if the prescription is for a schedule II opioid dr... Start Date: 12/12/22 Status: Ordered Metoprolol Succinate ER 50 mg oral tablet, extended release See Instructions, GENNY 1 TABLETA POR LA BOCA CADA POWER, # 30 tablet, 0 Refills, Maintenance, 02/26/23 16:35:00 EDT, [facility], 170, cm, 01/24/23 13:54:00 EDT, Height, 95.45, kg, 01/24/23 13:54:00 EDT, Dry Weight Start Date: 02/26/23 Status: Ordered nicotine 14 mg/24 hr transdermal film, extended release 1 patch, Topically, Daily, # 30 patch, 0 Refills, Maintenance, 01/24/23 14:36:00 EDT, Patch, [facility], Partial fill upon patient request if the prescription is for a schedule IIopioid drug., 1 patch Topically Daily, 170, cm, .. Start Date: 01/24/23 Status: Ordered Vitamin B12 1000 mcg oral tablet = 1,000 mcg, By Mouth, Daily, # 30 capsule, 0 Refills, Maintenance, 12/12/22 15:03:00 EDT, Tablet, [facility] #[id number], Partial fill upon patient request if the prescription is for a scheduleII opioid drug., 170, cm, 12/12/22 14:33:00 EDT, He... Start Date: 12/12/22 Status: Ordered Vivitrol 380 mg intramuscular injection, extended release = 380 mg, Intramuscular, Every 28 days, [id number] Scavron rotate injection sites, # 1 each, 11 Refills, Maintenance, 12/19/22 12:54:00 EDT, [facility], Partial fill upon patient request if the prescription is for a schedule II op... Start Date: 12/19/22 Stop Date: 11/20/23 Status: Ordered Problem List Condition Confirmation Course Effective Dates Status H ealth Status Informant Alcohol dependence Confirmed Active Beta thalassemia trait 1 Confirmed Active Non-ischemic cardiomyopathy 2 Confirmed Active Hypertension Confirmed Active Microcytic anemia Confirmed Active Non-ST elevation OR (NSTEMI) 3 Confirmed Active Pulmonary nodule, right 4 Confirmed Active Obese class I Confirmed Active Subclinical hypothyroidism Confirmed Active 1per 01/24/23 peripheral smear done in the context of ongoing microcytic anemia 2ECHO done at [facility] LVEF: 38%. November 2022 3June 2022 43mm in Right Upper Lobe (Jun 2020) Social History Social History Type Response Tobacco Interested in cessat ion: Yes. Other: Started smoking at 21. From [age] y/o smoked 1 PPD. Then 10-12 per day. Then 7 cigs per day. Has not smoked since 12-08-22. Sex Patient Care team information Care Team Personnel Name: Zenon Doherty NP Position: [facility] PCO Associate Professional Member Role: PCP Address: Address: [address] [place] [address] Name: Courtney Andrew Position: [facility] RN Member Role: Primary Care Nurse Care Team Related Persons Name: INDIO JOSEFINA Address: [address] [address] Name: JULIANN LEDESMA
--- OUTSIDE RECORDS SUMMARY | 2023-04-29 10:08 | XMS_ITS | Continuity of Care Document ---
Author Name Unknown Organization [facility] ter Address [address] [place] [address]- Care Team Providers Care Box Fabricator Name Role Phone Zenon Doherty NP Primary Care Physician Encounter [facility] Date(s): 01/05/23 - 01/05/[address] [address]- Encounter Diagnosis Chest pain(Final) - 01/05/23 Hypokalemia(Final) - 01/05/23 Alcohol intoxication(Final) - 01/05/23 Discharge Disposition: A-D/C Home Attending Physician: Alyhsa Jiménez MD Admitting Physician: Alysha Jiménez MD Referring Physician: Not on Staff, Referring MD Allergies, Adverse Reactions, Alerts No Known Allergies Immunizations Given and Recorded Vaccine Date Status Refusal Reason pneumococcal 20-valent conjugate vaccine 12/12/22 Given influenza virus vaccine, inactivated 06/26/20 Give n influenza virus vaccine, inactivated 11/01/15 Give n tetanus/diphtheria/pertussis, acel(Tdap) 11/01/15 Given Medications aspirin 81 mg oral delayed release tablet 1 tablet = 81 mg, By Mouth, Daily, do not crush or chew, # 30 tablet, 11 Refills, Maintenance, 12/12/22 15:05:00 EDT, CR Tablet, [facility] #[id number], Partial fill upon patient request if the prescription is for a schedule II opioid drug., 170,... Start Date: 12/12/22 Stop Date: 12/07/23 Status: Ordered atorvastatin 80 mg oral tablet 1 tablet = 80 mg, By Mouth, Daily, # 30 tablet, 11 Refills, Maintenance, 12/12/22 15:04:00 EDT, [facility] #[id number], Partial fill upon patient request if the prescription is for a schedule IIopioid drug., 170, cm, 12/12/22 14:33:00 EDT, [facility]... Start Date: 12/12/22 Status: Ordered folic acid 1 mg oral tablet 1 mg, By Mouth, Daily, # 30 capsule, Refills 0, Tot. Refills 0, Maintenance, 12/12/22 15:03:00 EDT,Route to Pharmacy Electronically, [facility] #[id number], Partial fill upon patient request ifthe prescription is for a schedule II opioid drug.,... Start Date: 12/12/22 Status: Ordered lisinopril 5 mg oral tablet 2.5 mg, By Mouth, Daily, # 30 capsule, Refills 11, Tot. Refills 11, Maintenance, 12/12/22 15:03:00 EDT, Route to Pharmacy Electronically, [facility] #[id number], Partial fill upon patient request if the prescription is for a schedule II opioid dr... Start Date: 12/12/22 Status: Ordered metoprolol 50 mg oral tablet, extended release 50 mg, 1, tablet, By Mouth, Daily, # 30 tablet, Refills 0, Tot. Refills 0, Maintenance, 12/12/22 15:03:00 EDT, Route to Pharmacy Electronically, [facility] #[id number], Partial fill upon patientrequest if the prescription is for a schedule II op... Start Date: 12/12/22 Status: Ordered nalOXONE 0.4 mg/mL injectable solution = 0.4 mg, Subcutaneous Injection, Once, inject 0.25mL wait 10mins, then inject 0.75mL wait 15mins then inject Vivitril if no reaction is noted or reported., # 1 each, 0 Refills, Soft Stop, 12/19/22 12:19:00 EDT, [facility], Partial... Start Date: 12/19/22 Status: Ordered nicotine 14 mg/24 hr transdermal film, extended release 1 patch, Topically, Daily, # 30 patch, 0 Refills, Maintenance, 12/12/22 15:05:00 EDT, Patch, [facility] #[id number], Partial fill upon patient request if the prescription is for a schedule II opioid drug., 1 patch Topically Daily, 170, cm, 06/29/... Start Date: 12/12/22 Status: Ordered Potassium Chloride (Eqv-K-Tab) 20 mEq oral tablet, extended release 1 tablet = 20 mEq, By Mouth, 2 times a day, # 10 tablet, 0 Refills, Maintenance, 01/05/23 3:58:00 EDT, [facility], Partial fill upon patient request if the prescription is for a schedule II opioid drug., 170, cm, 12/12/22 14:33:00... Start Date: 01/05/23 Stop Date: 01/10/23 Status: Ordered Vitamin B12 1000 mcg oral tablet = 1,000 mcg, By Mouth, Daily, # 30 capsule, 0 Refills, Maintenance, 12/12/22 15:03:00 EDT, Tablet, [facility] #[id number], Partial fill upon patient request if the prescription is for a scheduleII opioid drug., 170, cm, 12/12/22 14:33:00 EDT, He... Start Date: 12/12/22 Status: Ordered Vivitrol 380 mg intramuscular injection, extended release = 380 mg, Intramuscular, Every 28 days, [id number] Scavron rotate injection sites, # 1 each, 11 Refills, Maintenance, 12/19/22 12:54:00 EDT, [facility], Partial fill upon patient request if the prescription is for a schedule II op... Start Date: 12/19/22 Stop Date: 11/20/23 Status: Ordered Problem List Condition Confirmation Course Effective Dates Status H ealth Status Informant Alcohol dependence Confirmed Active Non-ischemic cardiomyopathy 1 Confirmed Active Microcytic anemia Confirmed Active Non-ST elevation RI (NSTEMI) 2 Confirmed Active Pulmonary nodule, right 3 Confirmed Active Obese class I Confirmed Active Subclinical hypothyroidism Confirmed Active 1ECHO done at [facility] LVEF: 38%. November 2022 2June 2022 33mm in Right Upper Lobe (Jun 2020) Results Radiology Reports * Exam Date Time Procedure Performing Provider Status 01/05/23 1:10 AM Chest 2 Views Fronta l and Lat Irais Valentino; Auth (Verified) Notes: (Chest 2 Views Frontal and Lat) Reason For Exam: Pleuritic Pain RESULT: Chest 2 Views Frontal and Lat Chest 2 Views Frontal and Lat Reason: Pleuritic Pain; Clinical Question(s): Pneumonia COMPARISON: None. FINDINGS: LINES AND TUBES: None. LUNGS AND PLEURA: Clear lungs. Normal pulmonary vascularity. No pleural effusion. No pneumothorax. HEART, MEDIASTINUM AND TONYA: Heart is normal in size. Normal mediastinal and hilar contour. BONES AND SOFT TISSUES: No acute abnormality. IMPRESSION: No acute abnormality. WSN: [id number] Ordering Physician: Ludivina Grace Dictated By: Jose Hammond MD Dictated Date/Time: 01/05/23 7:02 am Reviewed By: Jose Hammond MD Signed By: Jose Hammond MD Signed Date/Time: 01/05/23 7:02 am Transcribed By: VIOLETA Transcribed Date/Time: 01/05/23 7:02 am Vital Signs Most recent to oldest [Reference Range]: 1 2 Oxygen Saturation [94-100 %] 98 % (01/05/23 4:16 AM) 98 % (01/05/23 12:20 AM) Pulse Rate [55-90 bpm] 98 bpm *H* (01/05/23 4:16 AM) 112 bpm *H* (01/05/23 12:20 AM) Blood Pressure [90-138/55-84 mm Hg] 124/ 78mm Hg (01/05/23 4:16 AM) 122/96mm Hg (01/05/23 12:20 AM) Respiratory Rate [16-30 br/min] 19 br/mi n (01/05/23 4:16 AM) 22 br/min (01/05/23 12:20 AM) Temperature [96.8-100.4 DegF] 98.0 DegF (01/05/23 12:20 AM) Mode of Delivery (Oxygen) Room air (01/05/23 4:16 AM) Room air (01/05/23 12:20 AM) Temperature Route Oral (01/05/23 12:20 AM) Social History Social History Type Response Tobacco Interested in cessat ion: Yes. Other: Started smoking at 21. From [age] y/o smoked 1 PPD. Then 10-12 per day. Then 7 cigs per day. Has not smoked since 12-08-22. Sex EKG study * Event Display: EKG Authored Date: Patient Care team information Care Team Personnel Name: Maximo Arias RN Position: [facility] RN Member Role: Primary Care Nurse Name: Zenon Doherty NP Position: [facility] PCO Associate Professional Member Role: PCP Address: Address: [address] [place] [id number]- Name: Courtney Andrew Position: [facility] RN Member Role: Primary Care Nurse Name: Ludivina Grace NP Position: [facility] Associate Professional Member Role: ED Physician Talent Acquisition Director Address: Address: [address] [place] [id number]- Name: Ramya Baeza RN Position: [facility] ED RN W/OE and Tasks Member Role: Patient Care Provider Name: Rancho Krause Position: [facility] ED TA [facility] Member Role: Experimental Preflight Mechanic Name: Alysha Jiménez MD Position: [facility] ED Medicine MD Member Role: ED Attending Physician Address: Address: [address] [place] [address]- Care Team Related Persons Name: JOSEFINA BORJAS Address: [address] [place] [address] Name: JULIANN LEDESMA
--- OUTSIDE RECORDS SUMMARY | 2023-04-29 10:09 | XMS_ITS | Continuity of Care Document ---
Author Name Unknown Organization [facility] Address [address] [place] [address]- Care Team Providers Care Prepleater Name Role Phone Zenon Doherty NP Primary Care Physician [id number] Date(s): 01/15/23 - 03/14/23 [facility]/[place] [address]- Attending Physician: Clark Pedraza MD Admitting Physician: Clark Pedraza MD Allergies, Adverse Reactions, Alerts No Known Allergies Immunizations Given and Recorded Vaccine Date Status Refusal Reason hepatitis B adult vaccine 01/24/23 Given pneumococcal 20-valent conjugate vaccine 12/12/22 Given [id number] 12y+ bivalent booster vax 06/25/22 Recorded SARS-CoV-2 [...] Refills, Maintenance, 01/24/23 14:33:00 EDT, CR Tablet, [facility], Partial fill upon patient request if the prescription is for a schedule II opioid drug., 1... Start Date: 01/24/23 Stop Date: 01/19/24 Status: Ordered atorvastatin 80 mg oral tablet 1 tablet = 80 mg, By Mouth, Daily, # 30 tablet, 11 Refills, Maintenance, 12/12/22 15:04:00 EDT, [facility][id number], Partial fill upon patient request if the [...] Maintenance, 12/12/22 15:03:00 EDT,Route to Pharmacy Electronically, [facility] #[id number], Partial fill upon patient request ifthe prescription is for a schedule II opioid drug.,... Start Date: 12/12/22 Status: Ordered lisinopril 5 mg oral tablet 2.5 mg, By Mouth, Daily, # 30 capsule, Refills 11, Tot. Refills 11, Maintenance, 12/12/22 15:03:00 EDT, Route to Pharmacy Electronically, [facility] #[id number], Partial fill upon patient request if the prescription is for a schedule II opioid dr... Start Date: 12/12/22 Status: Ordered Metoprolol Succinate ER 50 mg oral tablet, extended release See Instructions, GENNY 1 TABLETA POR LA BOCA CADA POWER, # 90 tablet, 1 Refills, Maintenance, 03/11/23 17:51:00 EDT, [facility], 170, cm, 01/24/23 13:54:00 EDT, Height, 95.45, kg, 01/24/23 13:54:00 EDT, Dry Weight Start Date: 03/11/23 Status: Ordered nicotine 14 mg/24 hr transdermal film, extended release 1 patch, Topically, Daily, # 30 patch, 0 Refills, Maintenance, 01/24/23 14:36:00 EDT, Patch, [facility], Partial fill upon patient request if the prescription is for a schedule IIopioid drug., 1 patch Topically Daily, 170, cm, .. Start Date: 01/24/23 Status: Ordered Vitamin B12 1000 mcg oral tablet = 1,000 mcg, By Mouth, Daily, # 30 capsule, 0 Refills, Maintenance, 12/12/22 15:03:00 EDT, Tablet, [facility] #[id number], Partial fill upon patient request if the prescription is for a scheduleII opioid drug., 170, cm, 12/12/22 14:33:00 EDT, He... Start Date: 12/12/22 Status: Ordered Vivitrol 380 mg intramuscular injection, extended release = 380 mg, Intramuscular, Every 28 days, [id number] Scavron rotate injection sites, # 1 each, 11 Refills, Maintenance, 12/19/22 12:54:00 EDT, [facility], Partial fill upon patient request if the prescription is for a schedule II op... Start Date: 12/19/22 Stop Date: 11/20/23 Status: Ordered Problem List Condition Confirmation Course Effective Dates Status H ealth Status Informant Alcohol dependence Confirmed Active Beta thalassemia trait 1 Confirmed Active Non-ischemic cardiomyopathy 2 Confirmed Active Hypertension Confirmed Active Microcytic anemia Confirmed Active Non-ST elevation [place] (NSTEMI) 3 Confirmed Active Pulmonary nodule, right 4 Confirmed Active Obese class I Confirmed Active Subclinical hypothyroidism Confirmed Active 1per 01/24/23 peripheral smear done in the context of ongoing microcytic anemia 2ECHO done at [facility] LVEF: 38%. November 2022 3June 2022 43mm in Right Upper Lobe (Jun 2020) Social History Social History Type Response Tobacco Interested in cessat ion: Yes. Other: Started smoking at 21. From [age] y/o smoked 1 PPD. Then 10-12 per day. Then 7 cigs per day. Has not smoked since 12-08-22. Sex Patient Care team information Care Team Personnel Name: Zenon Doherty NP Position: [facility] PCO Associate Professional Member Role: PCP Address: Address: [address] [place] [address]- Care Team Related Persons Name: JOSEFINA BORJAS Address: home [address] [place] [address] Name: JULIANN LEDESMA
--- OUTSIDE RECORDS SUMMARY | 2023-04-29 10:09 | XMS_ITS | Continuity of Care Document ---
Author Name Unknown Organization [facility] Address [address] [place] [address]- Care Team Providers Care Transcription Coordinator Name Role Phone Zenon Doherty NP Primary Care Physician Encounter [facility] Date(s): 03/11/23 - 04/10/23 [facility] [address]- [place] Allergies, Adverse Reactions, Alerts No Known Allergies Immunizations Given and Recorded Vaccine Date Status Refusal Reason hepatitis B adult vaccine 01/24/23 Given pneumococcal 20-valent conjugate vaccine 12/12/22 Given [id number] 12y+ bivalent booster vax 06/25/22 Recorded SARS-CoV-2 [...] Refills, Maintenance, 01/24/23 14:33:00 EDT, CR Tablet, [facility], Partial fill upon patient request if the prescription is for a schedule II opioid drug., 1... Start Date: 01/24/23 Stop Date: 01/19/24 Status: Ordered atorvastatin 80 mg oral tablet 1 tablet = 80 mg, By Mouth, Daily, # 30 tablet, 11 Refills, Maintenance, 12/12/22 15:04:00 EDT, [facility] #[id number], Partial fill upon patient request if the prescription is for a schedule IIopioid drug., 170, cm, 12/12/22 14:33:00 EDT, [facility] Start Date: 12/12/22 Status: Ordered blood pressure [...] Maintenance, 12/12/22 15:03:00 EDT,Route to Pharmacy Electronically, [facility] #[id number], Partial fill upon patient request ifthe prescription is for a schedule II opioid drug.,... Start Date: 12/12/22 Status: Ordered lisinopril 5 mg oral tablet 2.5 mg, By Mouth, Daily, # 30 capsule, Refills 11, Tot. Refills 11, Maintenance, 12/12/22 15:03:00 EDT, Route to Pharmacy Electronically, [facility] #[id number], Partial fill upon patient request if the prescription is for a schedule II opioid dr... Start Date: 12/12/22 Status: Ordered Metoprolol Succinate ER 50 mg oral tablet, extended release See Instructions, GENNY 1 TABLETA POR LA BOCA CADA POWER, # 90 tablet, 1 Refills, Maintenance, 03/11/23 17:51:00 EDT, [facility], 170, cm, 01/24/23 13:54:00 EDT, Height, 95.45, kg, 01/24/23 13:54:00 EDT, Dry Weight Start Date: 03/11/23 Status: Ordered nicotine 14 mg/24 hr transdermal film, extended release 1 patch, Topically, Daily, # 30 patch, 0 Refills, Maintenance, 01/24/23 14:36:00 EDT, Patch, [facility], Partial fill upon patient request if the prescription is for a schedule IIopioid drug., 1 patch Topically Daily, 170, cm, ... Start Date: 01/24/23 Status: Ordered Vitamin B12 1000 mcg oral tablet = 1,000 mcg, By Mouth, Daily, # 30 capsule, 0 Refills, Maintenance, 12/12/22 15:03:00 EDT, Tablet, [facility] #[id number], Partial fill upon patient request if the prescription is for a scheduleII opioid drug., 170, cm, 12/12/22 14:33:00 EDT, He... Start Date: 12/12/22 Status: Ordered Vivitrol 380 mg intramuscular injection, extended release = 380 mg, Intramuscular, Every 28 days, [id number] Scavron rotate injection sites, # 1 each, 11 Refills, Maintenance, 12/19/22 12:54:00 EDT, [facility], Partial fill upon patient request if the prescription is for a schedule II op... Start Date: 12/19/22 Stop Date: 11/20/23 Status: Ordered Problem List Condition Confirmation Course Effective Dates Status H ealth Status Informant Alcohol dependence Confirmed Active Beta thalassemia trait 1 Confirmed Active Non-ischemic cardiomyopathy 2 Confirmed Active Hypertension Confirmed Active Microcytic anemia Confirmed Active Non-ST elevation [place] (NSTEMI) 3 Confirmed Active Pulmonary nodule, right 4 Confirmed Active Obese class I Confirmed Active Subclinical hypothyroidism Confirmed Active 1per 01/24/23 peripheral smear done in the context of ongoing microcytic anemia 2ECHO done at [facility] LVEF: 38%. November 2022 3June 2022 [...] Associate Professional Member Role: PCP Address: Address: [address] [place] [address]- Care Team Related Persons Name: JOSEFINA BORJAS Address: home [address] [place] [address] Name: JULIANN LEDESMA
--- OUTSIDE RECORDS SUMMARY | 2023-04-29 10:09 | XMS_ITS | Continuity of Care Document ---
Author Name Unknown Organization [facility] Address [address] [place] [address]- Care Team Providers Care Advice Clerk Name Role Phone Zenon Doherty NP Primary Care Physician Encounter [facility] Date(s): 12/19/22 - 02/15/23 [facility]/[place] [address]- Attending Physician: Edward Coffman MD Admitting Physician: Edward Coffman MD Allergies, Adverse Reactions, Alerts No Known Allergies Immunizations Given and Recorded Vaccine Date Status Refusal Reason hepatitis B adult vaccine 01/24/23 Given pneumococcal 20-valent conjugate vaccine 12/12/22 Given [id number] 12y+ bivalent booster vax 06/25/22 Recorded SARS-CoV-2 [...] Refills, Maintenance, 01/24/23 14:33:00 EDT, CR Tablet, [facility], Partial fill upon patient request if the prescription is for a schedule II opioid drug., 1... Start Date: 01/24/23 Stop Date: 01/19/24 Status: Ordered atorvastatin 80 mg oral tablet 1 tablet = 80 mg, By Mouth, Daily, # 30 tablet, 11 Refills, Maintenance, 12/12/22 15:04:00 EDT, [facility] #[id number], Partial fill upon patient request if the [...] Maintenance, 12/12/22 15:03:00 EDT,Route to Pharmacy Electronically, [facility] #[id number], Partial fill upon patient request ifthe prescription is for a schedule II opioid drug.,... Start Date: 12/12/22 Status: Ordered lisinopril 5 mg oral tablet 2.5 mg, By Mouth, Daily, # 30 capsule, Refills 11, Tot. Refills 11, Maintenance, 12/12/22 15:03:00 EDT, Route to Pharmacy Electronically, [facility] #[id number], Partial fill upon patient request if the prescription is for a schedule II opioid dr... Start Date: 12/12/22 Status: Ordered Metoprolol Succinate ER 50 mg oral tablet, extended release See Instructions, GENNY 1 TABLETA POR LA BOCA CADA POWER, # 30 tablet, 0 Refills, Maintenance, 01/24/23 14:34:00 EDT, [facility], 170, cm, 01/24/23 13:54:00 EDT, Height, 95.45, kg, 01/24/23 13:54:00 EDT, Dry Weight Start Date: 01/24/23 Status: Ordered nicotine 14 mg/24 hr transdermal film, extended release 1 patch, Topically, Daily, # 30 patch, 0 Refills, Maintenance, 01/24/23 14:36:00 EDT, Patch, [facility], Partial fill upon patient request if the prescription is for a schedule IIopioid drug., 1 patch Topically Daily, 170, cm, ... Start Date: 01/24/23 Status: Ordered Vitamin B12 1000 mcg oral tablet = 1,000 mcg, By Mouth, Daily, # 30 capsule, 0 Refills, Maintenance, 12/12/22 15:03:00 EDT, Tablet, [facility] #[id number], Partial fill upon patient request if the prescription is for a scheduleII opioid drug., 170, cm, 12/12/22 14:33:00 EDT, He... Start Date: 12/12/22 Status: Ordered Vivitrol 380 mg intramuscular injection, extended release = 380 mg, Intramuscular, Every 28 days, [id number] Scavron rotate injection sites, # 1 each, 11 Refills, Maintenance, 12/19/22 12:54:00 EDT, [facility], Partial fill upon patient request if the prescription is for a schedule II op... Start Date: 12/19/22 Stop Date: 11/20/23 Status: Ordered Problem List Condition Confirmation Course Effective Dates Status H ealth Status Informant Alcohol dependence Confirmed Active Beta thalassemia trait 1 Confirmed Active Non-ischemic cardiomyopathy 2 Confirmed Active Hypertension Confirmed Active Microcytic anemia Confirmed Active Non-ST elevation [place] (NSTEMI) 3 Confirmed Active Pulmonary nodule, right 4 Confirmed Active Obese class I Confirmed Active Subclinical hypothyroidism Confirmed Active 1per 01/24/23 peripheral smear done in the context of ongoing microcytic anemia 2ECHO done at [facility] LVEF: 38%. November 2022 3June 2022 [...] Team Personnel Name: Zenon Doherty NP Position: [facility] PCO Associate Professional Member Role: PCP Address: Address: [address] [place] [address]- Name: Courtney Andrew Position: [facility] RN Member Role: Primary Care Nurse Care Team Related Persons Name: JOSEFINA BORJAS Address: home [address] [place] [address] Name: JULIANN LEDESMA
--- OUTSIDE RECORDS SUMMARY | 2023-04-29 10:09 | XMS_ITS | Continuity of Care Document ---
Author Name Unknown Organization [facility] Address [address] [place] [address]- Care Team Providers Care Completion Manager Name Role Phone Zenon Doherty NP Primary Care Physician [phone] [id number] 04/17[facility]23 [facility]/[place] [address]- Attending Physician: China Edmondson NP Admitting Physician: China Edmondson NP Allergies, Adverse Reactions, Alerts No Known Allergies Immunizations Given and Recorded Vaccine Date Status Refusal Reason hepatitis B adult vaccine 01/24/23 Given pneumococcal 20-valent conjugate vaccine 12/12/22 Given [id number] 12y+ bivalent booster vax 06/25/22 Recorded SARS-CoV-2 [...] Refills, Maintenance, 01/24/23 14:33:00 EDT, CR Tablet, [facility], Partial fill upon patient request if the prescription is for a schedule II opioid drug., 1... Start Date: 01/24/23 Stop Date: 01/19/24 Status: Ordered atorvastatin 80 mg oral tablet 1 tablet = 80 mg, By Mouth, Daily, # 30 tablet, 11 Refills, Maintenance, 12/12/22 15:04:00 EDT, [facility] #[id number], Partial fill upon patient request if the [...] Maintenance, 12/12/22 15:03:00 EDT,Route to Pharmacy Electronically, [facility] #[id number], Partial fill upon patient request ifthe prescription is for a schedule II opioid drug.,... Start Date: 12/12/22 Status: Ordered lisinopril 5 mg oral tablet 2.5 mg, By Mouth, Daily, # 30 capsule, Refills 11, Tot. Refills 11, Maintenance, 12/12/22 15:03:00 EDT, Route to Pharmacy Electronically, [facility] #[id number], Partial fill upon patient request if the prescription is for a schedule II opioid dr... Start Date: 12/12/22 Status: Ordered Metoprolol Succinate ER 50 mg oral tablet, extended release See Instructions, GENNY 1 TABLETA POR LA BOCA CADA POWER, # 90 tablet, 1 Refills, Maintenance, 03/11/23 17:51:00 EDT, [facility], 170, cm, 01/24/23 13:54:00 EDT, Height, 95.45, kg, 01/24/23 13:54:00 EDT, Dry Weight Start Date: 03/11/23 Status: Ordered nicotine 14 mg/24 hr transdermal film, extended release 1 patch, Topically, Daily, # 30 patch, 0 Refills, Maintenance, 01/24/23 14:36:00 EDT, Patch, [facility], Partial fill upon patient request if the prescription is for a schedule IIopioid drug., 1 patch Topically Daily, 170, cm, .. Start Date: 01/24/23 Status: Ordered Vitamin B12 1000 mcg oral tablet = 1,000 mcg, By Mouth, Daily, # 30 capsule, 0 Refills, Maintenance, 12/12/22 15:03:00 EDT, Tablet, [facility] #[id number], Partial fill upon patient request if the prescription is for a scheduleII opioid drug., 170, cm, 12/12/22 14:33:00 EDT, He... Start Date: 12/12/22 Status: Ordered Vivitrol 380 mg intramuscular injection, extended release = 380 mg, Intramuscular, Every 28 days, [id number] Scavron rotate injection sites, # 1 each, 11 Refills, Maintenance, 12/19/22 12:54:00 EDT, [facility], Partial fill upon patient request if [...] of ongoing microcytic anemia 2ECHO done at [facility] LVEF: 38%. November 2022 3June 2022 [...] Associate Professional Member Role: PCP Address: Address: [address] [place] [address]- Care Team Related Persons Name: JOSEFINA BORJAS Address: home [address] [place] [address] Name: JULIANN LEDESMA
--- OUTSIDE RECORDS SUMMARY | 2023-04-29 10:09 | XMS_ITS | Continuity of Care Document ---
Author Name Unknown Organization [facility] Address [address] [place] [address]- Care Team Providers Care Laundry Housekeeping Aide Name Role Phone Zenon Doherty NP Primary Care Physician Encounter [facility] Date(s): 01/22/23 - 02/21/23 [facility]/[place] [address]- [place] Allergies, Adverse Reactions, Alerts No Known Allergies Immunizations Given and Recorded Vaccine Date Status Refusal Reason hepatitis B adult vaccine 01/24/23 Given pneumococcal 20-valent conjugate vaccine 12/12/22 Given [id number] 12y+ bivalent booster vax 06/25/22 Recorded SARS-CoV-2 [...] tablet, 11 Refills, Maintenance, 01/24/23 14:33:00 EDT, KATHRYN Diaz, [facility], Partial fill upon patient request if the prescription is for a schedule II opioid drug., 1... Start Date: 01/24/23 Stop Date: 01/19/24 Status: Ordered atorvastatin 80 mg oral tablet 1 tablet = 80 mg, By Mouth, Daily, # 30 tablet, 11 Refills, Maintenance, 12/12/22 15:04:00 EDT, [facility] #[id number], Partial fill upon patient request if the [...] Maintenance, 12/12/22 15:03:00 EDT,Route to Pharmacy Electronically, [facility] #[id number], Partial fill upon patient request ifthe prescription is for a schedule II opioid drug.,... Start Date: 12/12/22 Status: Ordered lisinopril 5 mg oral tablet 2.5 mg, By Mouth, Daily, # 30 capsule, Refills 11, Tot. Refills 11, Maintenance, 12/12/22 15:03:00 EDT, Route to Pharmacy Electronically, [facility] #[id number], Partial fill upon patient request if the prescription is for a schedule II opioid dr... Start Date: 12/12/22 Status: Ordered Metoprolol Succinate ER 50 mg oral tablet, extended release See Instructions, GENNY 1 TABLETA POR LA BOCA CADA POWER, # 30 tablet, 0 Refills, Maintenance, 01/24/23 14:34:00 EDT, [facility], 170, cm, 01/24/23 13:54:00 EDT, Height, 95.45, kg, 01/24/23 13:54:00 EDT, Dry Weight Start Date: 01/24/23 Status: Ordered nicotine 14 mg/24 hr transdermal film, extended release 1 patch, Topically, Daily, # 30 patch, 0 Refills, Maintenance, 01/24/23 14:36:00 EDT, Patch, [facility], Partial fill upon patient request if the prescription is for a schedule IIopioid drug., 1 patch Topically Daily, 170, cm, ... Start Date: 01/24/23 Status: Ordered Vitamin B12 1000 mcg oral tablet = 1,000 mcg, By Mouth, Daily, # 30 capsule, 0 Refills, Maintenance, 12/12/22 15:03:00 EDT, Tablet, [facility] #[id number], Partial fill upon patient request if the prescription is for a scheduleII opioid drug., 170, cm, 12/12/22 14:33:00 EDT, He... Start Date: 12/12/22 Status: Ordered Vivitrol 380 mg intramuscular injection, extended release = 380 mg, Intramuscular, Every 28 days, [id number] Scavron rotate injection sites, # 1 each, 11 Refills, Maintenance, 12/19/22 12:54:00 EDT, [facility], Partial fill upon patient request if the prescription is for a schedule II op... Start Date: 12/19/22 Stop Date: 11/20/23 Status: Ordered Problem List Condition Confirmation Course Effective Dates Status H ealth Status Informant Alcohol dependence Confirmed Active Beta thalassemia trait 1 Confirmed Active Non-ischemic cardiomyopathy 2 Confirmed Active Hypertension Confirmed Active Microcytic anemia Confirmed Active Non-ST elevation [place] (NSTEMI) 3 Confirmed Active Pulmonary nodule, right 4 Confirmed Active Obese class I Confirmed Active Subclinical hypothyroidism Confirmed Active 1per 01/24/23 peripheral smear done in the context of ongoing microcytic anemia 2ECHO done at [facility] LVEF: 38%. November 2022 3June 2022 43mm in Right Upper Lobe (Jun 2020) Social History Social History Type Response Tobacco Interested in cessat ion: Yes. Other: Started smoking at 21. From [age] y/o smoked 1 PPD. Then 10-12 per day. Then 7 cigs per day. Has not smoked since 12-08-22. Sex Patient Care team information Care Team Personnel Name: Zenon Doherty NP Position: [facility] PCO Associate Professional Member Role: PCP Address: Address: [address] [place] [address]- Name: Courtney Andrew Position: [facility] RN Member Role: Primary Care Nurse Care Team Related Persons Name: JOSEFINA BORJAS Address: home [address] [place] [address] Name: JULIANN LEDESMA
--- OUTSIDE RECORDS SUMMARY | 2023-04-29 10:09 | XMS_ITS | Continuity of Care Document ---
Author Name Unknown Organization [facility] Address [address] [place] [address]- Care Team Providers Care Electric Powerline Examiner Name Role Phone Zenon Doherty NP Primary Care Physician [phone] Encounter [facility] [place] Date(s): 02/20/23 - 04/25/23 [facility] [address]- Attending Physician: Clark Pedraza MD Admitting Physician: Clark Pedraza MD Allergies, Adverse Reactions, Alerts No Known Allergies Immunizations Given and Recorded Vaccine Date Status Refusal Reason hepatitis B adult vaccine 01/24/23 Given pneumococcal 20-valent conjugate vaccine 12/12/22 Given [id number] 12y+ bivalent booster vax 06/25/22 Recorded SARS-CoV-2 [...] Refills, Maintenance, 01/24/23 14:33:00 EDT, CR Tablet, [facility], Partial fill upon patient request if the prescription is for a schedule II opioid drug., 1... Start Date: 01/24/23 Stop Date: 01/19/24 Status: Ordered atorvastatin 80 mg oral tablet 1 tablet = 80 mg, By Mouth, Daily, # 30 tablet, 11 Refills, Maintenance, 12/12/22 15:04:00 EDT, [facility] #[id number], Partial fill upon patient request if the [...] Maintenance, 12/12/22 15:03:00 EDT,Route to Pharmacy Electronically, [facility] #[id number], Partial fill upon patient request ifthe prescription is for a schedule II opioid drug.,... Start Date: 12/12/22 Status: Ordered lisinopril 5 mg oral tablet 2.5 mg, By Mouth, Daily, # 30 capsule, Refills 11, Tot. Refills 11, Maintenance, 12/12/22 15:03:00 EDT, Route to Pharmacy Electronically, [facility] #[id number], Partial fill upon patient request if the prescription is for a schedule II opioid dr... Start Date: 12/12/22 Status: Ordered Metoprolol Succinate ER 50 mg oral tablet, extended release See Instructions, GENNY 1 TABLETA POR LA BOCA CADA POWER, # 90 tablet, 1 Refills, Maintenance, 03/11/23 17:51:00 EDT, [facility] [place], 170, cm, 01/24/23 13:54:00 EDT, Height, 95.45, kg, 01/24/23 13:54:00 EDT, Dry Weight Start Date: 03/11/23 Status: Ordered nicotine 14 mg/24 hr transdermal film, extended release 1 patch, Topically, Daily, # 30 patch, 0 Refills, Maintenance, 01/24/23 14:36:00 EDT, Patch, [facility], Partial fill upon patient request if the prescription is for a schedule IIopioid drug., 1 patch Topically Daily, 170, cm, ... Start Date: 01/24/23 Status: Ordered Vitamin B12 1000 mcg oral tablet = 1,000 mcg, By Mouth, Daily, # 30 capsule, 0 Refills, Maintenance, 12/12/22 15:03:00 EDT, Tablet, [facility] #[id number], Partial fill upon patient request if the prescription is for a scheduleII opioid drug., 170, cm, 12/12/22 14:33:00 EDT, He... Start Date: 12/12/22 Status: Ordered Vivitrol 380 mg intramuscular injection, extended release = 380 mg, Intramuscular, Every 28 days, [id number] Scavron rotate injection sites, # 1 each, 11 Refills, Maintenance, 12/19/22 12:54:00 EDT, [facility], Partial fill upon patient request if the prescription is for a schedule II op... Start Date: 12/19/22 Stop Date: 11/20/23 Status: Ordered Problem List Condition Confirmation Course Effective Dates Status H ealth Status Informant Alcohol dependence Confirmed Active Beta thalassemia trait 1 Confirmed Active Non-ischemic cardiomyopathy 2 Confirmed Active Hypertension Confirmed Active Microcytic anemia Confirmed Active Non-ST elevation [place] (NSTEMI) 3 Confirmed Active Pulmonary nodule, right 4 Confirmed Active Obese class I Confirmed Active Subclinical hypothyroidism Confirmed Active 1per 01/24/23 peripheral smear done in the context of ongoing microcytic anemia 2ECHO done at [facility] LVEF: 38%. November 2022 3June 2022 [...] Associate Professional Member Role: PCP Address: Address: [address] [place] [address] Care Team Related Persons Name: JOSEFINA BORJAS Address: home [address] [place] [id number] Name: JULIANN LEDESMA
--- OUTSIDE RECORDS SUMMARY | 2023-04-29 10:09 | XMS_ITS | Continuity of Care Document ---
Author Name Unknown Organization [facility] Address [address] [place] [address]- Care Team Providers Care Buggy Ladle Tender Name Role Phone Zenon Doherty NP Primary Care Physician [phone] Encounter [facility] Date(s): 02/05/23 - 03/07/23 [facility] [address]- [place] Allergies, Adverse Reactions, Alerts No Known Allergies Immunizations Given and Recorded Vaccine Date Status Refusal Reason hepatitis B adult vaccine 01/24/23 Given pneumococcal 20-valent conjugate vaccine 12/12/22 Given [id number] 12y+ bivalent booster vax 06/25/22 Recorded SARS-CoV-2 [...] Refills, Maintenance, 01/24/23 14:33:00 EDT, CR Tablet, [facility], Partial fill upon patient request if the prescription is for a schedule II opioid drug., 1... Start Date: 01/24/23 Stop Date: 01/19/24 Status: Ordered atorvastatin 80 mg oral tablet 1 tablet = 80 mg, By Mouth, Daily, # 30 tablet, 11 Refills, Maintenance, 12/12/22 15:04:00 EDT, [facility] #[id number], Partial fill upon patient request if the [...] Maintenance, 12/12/22 15:03:00 EDT,Route to Pharmacy Electronically, [facility] #[id number], Partial fill upon patient request ifthe prescription is for a schedule II opioid drug.,... Start Date: 12/12/22 Status: Ordered lisinopril 5 mg oral tablet 2.5 mg, By Mouth, Daily, # 30 capsule, Refills 11, Tot. Refills 11, Maintenance, 12/12/22 15:03:00 EDT, Route to Pharmacy Electronically, [facility] #[id number], Partial fill upon patient request if the prescription is for a schedule II opioid dr... Start Date: 12/12/22 Status: Ordered Metoprolol Succinate ER 50 mg oral tablet, extended release See Instructions, GENNY 1 TABLETA POR LA BOCA CADA POWER, # 30 tablet, 0 Refills, Maintenance, 02/26/23 16:35:00 EDT, [facility], 170, cm, 01/24/23 13:54:00 EDT, Height, 95.45, kg, 01/24/23 13:54:00 EDT, Dry Weight Start Date: 02/26/23 Status: Ordered nicotine 14 mg/24 hr transdermal film, extended release 1 patch, Topically, Daily, # 30 patch, 0 Refills, Maintenance, 01/24/23 14:36:00 EDT, Patch, [facility], Partial fill upon patient request if the prescription is for a schedule IIopioid drug., 1 patch Topically Daily, 170, cm, ... Start Date: 01/24/23 Status: Ordered Vitamin B12 1000 mcg oral tablet = 1,000 mcg, By Mouth, Daily, # 30 capsule, 0 Refills, Maintenance, 12/12/22 15:03:00 EDT, Tablet, [facility] #[id number], Partial fill upon patient request if the prescription is for a scheduleII opioid drug., 170, cm, 12/12/22 14:33:00 EDT, He... Start Date: 12/12/22 Status: Ordered Vivitrol 380 mg intramuscular injection, extended release = 380 mg, Intramuscular, Every 28 days, [id number] Scavron rotate injection sites, # 1 each, 11 Refills, Maintenance, 12/19/22 12:54:00 EDT, [facility], Partial fill upon patient request if the prescription is for a schedule II op... Start Date: 12/19/22 Stop Date: 11/20/23 Status: Ordered Problem List Condition Confirmation Course Effective Dates Status H ealth Status Informant Alcohol dependence Confirmed Active Beta thalassemia trait 1 Confirmed Active Non-ischemic cardiomyopathy 2 Confirmed Active Hypertension Confirmed Active Microcytic anemia Confirmed Active Non-ST elevation [place] (NSTEMI) 3 Confirmed Active Pulmonary nodule, right 4 Confirmed Active Obese class I Confirmed Active Subclinical hypothyroidism Confirmed Active 1per 01/24/23 peripheral smear done in the context of ongoing microcytic anemia 2ECHO done at [facility] LVEF: 38%. November 2022 3June 2022 43mm [...] Associate Professional Member Role: PCP Address: Address: [address] [place] [address]- Care Team Related Persons Name: JOSEFINA BORJAS Address: home [address] [place] [address] Name: JULIANN LEDESMA
--- OUTSIDE RECORDS SUMMARY | 2023-04-29 10:09 | XMS_ITS | Continuity of Care Document ---
Author Name Unknown Organization [facility] Address [address] [place] [address]- Care Team Providers Care Magnetic Resonance Imaging Coordinator Name Role Phone Bessy BEST, Zenon Primary Care Physician [phone] Encounter [facility] [place] Date(s): 01/07/23 - 02/13/23 [facility]/[place] [address]- Attending Physician: Zenon Doherty NP Admitting Physician: Zenon Doherty NP Allergies, Adverse Reactions, Alerts No Known Allergies Immunizations Given and Recorded Vaccine Date Status Refusal Reason hepatitis B adult vaccine 01/24/23 Given pneumococcal 20-valent conjugate vaccine 12/12/22 Given [id number] 12y+ bivalent booster vax 06/25/22 Recorded SARS-CoV-2 [...] Refills, Maintenance, 01/24/23 14:33:00 EDT, CR Tablet, [facility], Partial fill upon patient request if the prescription is for a schedule II opioid drug., 1... Start Date: 01/24/23 Stop Date: 01/19/24 Status: Ordered atorvastatin 80 mg oral tablet 1 tablet = 80 mg, By Mouth, Daily, # 30 tablet, 11 Refills, Maintenance, 12/12/22 15:04:00 EDT, [facility] #[id number], Partial fill upon patient request if the [...] Maintenance, 12/12/22 15:03:00 EDT,Route to Pharmacy Electronically, [facility] #[id number], Partial fill upon patient request ifthe prescription is for a schedule II opioid drug.,... Start Date: 12/12/22 Status: Ordered lisinopril 5 mg oral tablet 2.5 mg, By Mouth, Daily, # 30 capsule, Refills 11, Tot. Refills 11, Maintenance, 12/12/22 15:03:00 EDT, Route to Pharmacy Electronically, [facility] #[id number], Partial fill upon patient request if the prescription is for a schedule II opioid dr... Start Date: 12/12/22 Status: Ordered Metoprolol Succinate ER 50 mg oral tablet, extended release See Instructions, GENNY 1 TABLETA POR LA BOCA CADA POWER, # 30 tablet, 0 Refills, Maintenance, 01/24/23 14:34:00 EDT, [facility], 170, cm, 01/24/23 13:54:00 EDT, Height, 95.45, kg, 01/24/23 13:54:00 EDT, Dry Weight Start Date: 01/24/23 Status: Ordered nicotine 14 mg/24 hr transdermal film, extended release 1 patch, Topically, Daily, # 30 patch, 0 Refills, Maintenance, 01/24/23 14:36:00 EDT, Patch, [facility], Partial fill upon patient request if the prescription is for a schedule IIopioid drug., 1 patch Topically Daily, 170, cm, ... Start Date: 01/24/23 Status: Ordered Vitamin B12 1000 mcg oral tablet = 1,000 mcg, By Mouth, Daily, # 30 capsule, 0 Refills, Maintenance, 12/12/22 15:03:00 EDT, Tablet, [facility] #[id number], Partial fill upon patient request if the prescription is for a scheduleII opioid drug., 170, cm, 12/12/22 14:33:00 EDT, He... Start Date: 12/12/22 Status: Ordered Vivitrol 380 mg intramuscular injection, extended release = 380 mg, Intramuscular, Every 28 days, [id number] Scavron rotate injection sites, # 1 each, 11 Refills, Maintenance, 12/19/22 12:54:00 EDT, [facility], Partial fill upon patient request if the prescription is for a schedule II op... Start Date: 12/19/22 Stop Date: 11/20/23 Status: Ordered Problem List Condition Confirmation Course Effective Dates Status H ealth Status Informant Alcohol dependence Confirmed Active Beta thalassemia trait 1 Confirmed Active Non-ischemic cardiomyopathy 2 Confirmed Active Hypertension Confirmed Active Microcytic anemia Confirmed Active Non-ST elevation [place] (NSTEMI) 3 Confirmed Active Pulmonary nodule, right 4 Confirmed Active Obese class I Confirmed Active Subclinical hypothyroidism Confirmed Active 1per 01/24/23 peripheral smear done in the context of ongoing microcytic anemia 2ECHO done at [facility] LVEF: 38%. November 2022 3June 2022 43mm in Right Upper Lobe (Jun 2020) Social History Social History Type Response Tobacco Interested in cessat ion: Yes. Other: Started smoking at 21. From [age] y/o smoked 1 PPD. Then 10-12 per day. Then 7 cigs per day. Has not smoked since 12-08-22. Sex Patient Care team information Care Team Personnel Name: Zenon Doherty NP Position: [facility] PCO Associate Professional Member Role: PCP Address: Address: [address] [place] [address]- Name: Courtney Andrew Position: [facility] RN Member Role: Primary Care Nurse Care Team Related Persons Name: JOSEFINA BORJAS Address: home [address] [place] [address] Name: JULIANN LEDESMA
--- OUTSIDE RECORDS SUMMARY | 2023-04-29 10:09 | XMS_ITS | Continuity of Care Document ---
Author Name Unknown Organization [facility] ter Address [address] [place] [id number] Care Team Providers Care District Superintendent Name Role Phone Not on Staff, PCP Primary Care Physician Unavail able [facility]counter [facility] [place](s): 12/09/22 - 12/11/[address] [address] Discharge Disposition: A-D/C Home Attending Physician: Margie Hurley MD Admitting Physician: Noemi Gonzalez MD Referring Physician: Noemi Gonzalez MD Allergies, Adverse Reactions, Alerts No Known Allergies Immunizations Given and Recorded Vaccine Date Status Refusal Reason influenza virus vaccine, inactivated 06/26/20 Give n influenza virus vaccine, inactivated 11/01/15 Give n tetanus/diphtheria/pertussis, acel(Tdap) 11/01/15 Given Medications Acetaminophen Tablet 650 mg, Tablet, By Mouth, Every 4 hours, PRN for Pain , Mild, Temperature Greater than 100.5, Routine, 12/09/22 15:54:00 EDT Start Date: 12/09/22 Stop Date: 12/11/22 Status: Discontinued aspirin 81 mg oral delayed release tablet 81 mg, 1, tablet, By Mouth, Daily, # 30 tablet, Refills 0, Maintenance, 12/09/22 18:32:00 EDT, Partial fill upon patient request if the prescription is for a schedule II opioid drug. Start Date: 12/09/22 Status: Ordered atorvastatin 80 mg oral tablet 1 tablet = 80 mg, By Mouth, Daily, # 90 tablet, 0 Refills, Maintenance, 12/09/22 18:31:00 EDT, Tablet, Partial fill upon patient request if the prescription is for a schedule II opioid drug. Start Date: 12/09/22 Status: Ordered folic acid 1 mg oral tablet 1 mg, By Mouth, Daily, # 30 capsule, Refills 0, Tot. Refills 0, Maintenance, 12/11/22 9:29:00 EDT, Route to Pharmacy Electronically, [facility], Partial fill upon patient request if the prescription is for a schedule II opioid drug... Start Date: 12/11/22 Status: Ordered lisinopril 5 mg oral tablet 2.5 mg, By Mouth, Daily, # 30 capsule, Refills 0, Tot. Refills 0, Maintenance, 12/11/22 10:25:00 EDT, Route to Pharmacy Electronically, [facility], Partial fill upon patient request if the prescription is for a schedule II opioid drug.,... Start Date: 12/11/22 Status: Ordered lisinopril 5 mg oral tablet 2.5 mg, Tablet, By Mouth, 12/11/22 9:00:00 EDT Start Date: 12/11/22 Stop Date: 12/11/22 Status: Completed metoprolol 25 mg oral tablet 25 mg, Tablet, By Mouth, 12/11/22 9:00:00 EDT Start Date: 12/11/22 Stop Date: 12/11/22 Status: Completed metoprolol 50 mg oral tablet, extended release 50 mg, 1, tablet, By Mouth, Daily, # 30 tablet, Refills 0, Tot. Refills 0, Maintenance, 12/11/22 10:25:00 EDT, Route to Pharmacy Electronically, [facility], Partial fill upon patient request if the prescription is for a schedule II opioi... Start Date: 12/11/22 Status: Ordered metroNIDAZOLE 500 mg oral tablet = 500 mg, By Mouth, 2 times a day, for 7 days, # 14 capsule, 0 Refills, Acute 12/18/22 10:25:00 EDT, 12/11/22 10:25:00 EDT, Tablet, [facility], Partial fill upon patient request if the prescription is for a schedule II opioid drug., 95,... Start Date: 12/11/22 Stop Date: 12/18/22 Status: Ordered nicotine 14 mg/24 hr transdermal film, extended release 1 patch, Topically, Daily, # 30 patch, 0 Refills, Maintenance, 12/09/22 18:32:00 EDT, Patch, Partial fill upon patient request if the prescription is for a schedule II opioid drug. Start Date: 12/09/22 Status: Ordered Vitamin B12 1000 mcg oral tablet = 1,000 mcg, By Mouth, Daily, # 30 capsule, 0 Refills, Maintenance, 12/11/22 9:29:00 EDT, Tablet, [facility], Partial fill upon patient request if the prescription is for a schedule II opioid drug., 95, kg, 12/09/22 16:47:00 EDTEzequiel. Start Date: 12/11/22 Status: Ordered Vital Signs Most recent to oldest [Reference Range]: 1 2 3 Weight 93.3 kg (12/11/22 4:03 AM) 93.6 kg (12/10/22 4:24 AM) 95 kg (12/09/22 3:17 PM) Oxygen Saturation [94-100 %] 96 % (12/11/22 11:06 AM) 98 % (12/11/22 4:03 AM) 98 % (12/10/22 8:59 PM) Pulse Rate [55-90 bpm] 82 bpm (12/11/22 11:06 AM) 82 bpm (12/11/22 8:38 AM) 80 bpm (12/11/22 4:03 AM) Blood Pressure [90-138/55-84 mm Hg] 139/86mm Hg *H* (12/11/22 11:06 AM) 137/84mm Hg (12/11/22 8:39 AM) 137/84mm Hg (12/11/22 8:38 AM) Respiratory Rate [16-30 br/min] 18 br/min (12/11/22 11:06 AM) 18 br/min (12/11/22 4:03 AM) 16 br/min (12/10/22 10:28 PM) Temperature [96.8-100.4 DegF] 98.8 DegF (12/11/22 11:06 AM) 98.6 DegF (12/11/22 4:03 AM) 98.6 DegF (12/10/22 8:59 PM) Mode of Delivery (Oxygen) Room air (12/11/22 11:06 AM) Room air (12/11/22 4:03 AM) Room air (12/10/22 8:59 PM) Blood pressure sites Arm, left (12/11/22 11:06 AM) Arm, left (12/11/22 4:03 AM) Arm, right (12/10/22 8:59 PM) Temperature Route Oral (12/11/22 11:06 AM) Oral (12/11/22 4:03 AM) Oral (12/10/22 8:59 PM) Dry Weight 95 kg (12/09/22 4:47 PM) Weight Obtained Via Bed scale (12/11/22 4:03 AM) Bed scale (12/10/22 4:24 AM) Social History Social History Type Response Smoking Status Current every day sm oker; Type: Cigarettes; Tobacco use times per day: 7 cig / day; entered on: 10/21/16 Sex Note * Candace Peres RN: VERIFY, PERFORM, SIGN Event Display: Cardiac Rehab Note Authored Date: [id number] Patient: FRANKY GATES Age: 47 years Sex: Male : 1975 Associated Diagnoses: None Author: Candace Peres RN Chart reviewed, patient admitted with chest pain and shortness of breath to . Patient had ECHO that showed reduced EF of 38%. No CHF on CXR. No heart failure consult, patient is not being treated for CHF. Cath done at [facility], coronaries are clean. Patient is diagnosed with non ischemic cardiomyopathy. Unfortunately, patient does not have a qualifying diagnosis for phase 2 CR. Please page [phone] with questions or changes in plan of care. * Chandrika Aldridge: PERFORM Event Display: Discharge/Transfer Note Hospital Authored Date: Nursing Discharge Note Entered On: 12/11/2022 13:01 EDT Performed On: 12/11/2022 13:01 EDT by Chandrika Aldridge Nursing Discharge Note 2 Discharge Time : 12/11/2022 12:56 EDT Discharge Level of Care at Discharge : Home/Intermediate/Foster Care Patient Left Unit Via : Ambulatory Patient Accompanied Off Unit with : Significant other, Responsible adult DC Instructions Provided & Signed by Pt : Yes Patient Understands D/C Instructions : Yes Patient Instructions Discharge Signed : Yes Did Pt have Specialty Bed or Wound Vac : No Chandrika Aldridge - 12/11/2022 13:01 EDT * Mei BLAND, Margie: MODIFY, PERFORM Event Display: Discharge/Transfer Note Hospital Authored Date: [id number] Patient: ??FRANKY GATES ? Age:??47 Years?Sex:??Male?:??1975?? Patient Information Discharge Location: Primary Care Physician: Vivien Hernández MD Admit Date/Time: 12/09/22 15:04 Discharge Disposition Discharge Disposition: Home: No Services Discharge Diagnosis Cardiomyopathy (I42.9) Non-ST elevation WA (NSTEMI) (I21.4) Anemia (D64.9) Hypokalemia (E87.6) Infection by Giardia lamblia (A07.1) Enteropathogenic Escherichia coli infection (A04.0) Diarrhea (R19.7) ?? _ Discharge Medications Aspirin (aspirin 81 mg oral delayed release tablet)?81?Milligram?1?tablet?By Mouth?Daily Atorvastatin (atorvastatin 80 mg oral tablet)?1?tab(s)?80?Milligram?By Mouth?Daily Cyanocobalamin (Vitamin B12 1000 mcg oral tablet)?1,000?Microgram?By Mouth?Daily Folic Acid (folic acid 1 mg oral tablet)?1?Milligram?By Mouth?Daily Lisinopril (lisinopril 5 mg oral tablet)?2.5?Milligram?By Mouth?Daily Metoprolol (metoprolol 50 mg oral tablet, extended release)?50?Milligram?1?tablet?ByMouth?Daily Metronidazole (metroNIDAZOLE 500 mg oral tablet)?500?Milligram?By Mouth?2 times a day?for 7?Days Nicotine (nicotine 14 mg/24 hr transdermal film, extended release)?1?patch(es)?Topically?Daily ? Quality Measures Chest Pain, AMI Quality Measures:?ACEI or ARB for LVSD:??ACEI has been prescribed ?Beta-Te Prescribed at Discharge:??Beta-Te Prescibed ? Medications Started Metoprolol XL 50 mg once daily Metronidazole Lisinopril Medications Discontinued Metoprolol 25 mg twice daily Doses Changed None Allergies Allergies ?(Active and Proposed Allergies Only) NKA? (Severity: Unknown severity, Onset: Unknown) ? PCP Follow-Up/Heads-Up See below - cardiomyopathy, likely from alcohol use and ?thyroid - TSH elevated, needs medical optimization and follow up with cardiology Hospital Course See below Objective Assessment and Plan 47-year-old male without significant past medical history, not on medications, with tobacco use disorder and possible alcohol use disorder, who presented to [facility] on 12/08/2022 complaining of midsternal chest discomfort radiating to his left arm intermittently for almost a month.?Symptoms became more frequent over the 2 days preceding presentation.??He also reported diarrheal illness for a few days.??EKG showed sinus rhythm with nonspecific ST changes, and troponin values were not elevated. Echocardiogram was concerning with EF of 38% and multiple wall motion abnormalities. Thepatient was started on heparin drip, aspirin, high-dose atorvastatin, and metoprolol tartrate, and now transferred here to [facility] for diagnostic cardiac catheterization. ?? Cardiomyopathy (I42.9) Non-ST elevation WA (NSTEMI) (I21.4):??The patient was noted to have new??cardiomyopathy with EF??38%??at [facility], with multiple wall motion abnormalities.??No significant valvular disease noted.??The patient has been sent here for ischemia work-up.??Other differential diagnoses include??dilated cardiomyopathy in the setting of??chronic alcohol use??or uncontrolled hypertension.??He is currently hemodynamically stable without chest pain.??He is not volume overloaded on exam. ?? Plan DC heparin drip Status post cardiac cath??12/10/2022:??No coronary artery disease Continue aspirin, high intensity atorvastatin Continue metoprolol 25 mg twice daily, can transition to Toprol-XL upon discharge Started low-dose lisinopril 2.5 mg daily ; no history of allergy Extensively counseled regarding smoking cessation and alcohol cessation Continue nicotine patch ? Microcytic??anemia (D64.9) Folate deficiency Patient denies known history of anemia.??He denies active blood loss. This could be in the setting of chronic alcohol use.?? Iron panel at [facility]??was normal. Folate deficiency: Start folate 7 mg daily B12 low normal: Start??vitamin B12 1000 mcg daily Add on??iron panel Follow-up PCP??as outpatient ?? TSH elevated at 6, follow-up PCP as outpatient Monitor CBC. ?? Hypokalemia (E87.6):??resolved after replacement ?? Infection by Giardia lamblia (A07.1) Enteropathogenic Escherichia coli infection (A04.0) Diarrhea (R19.7):??The patient states his diarrhea is improving.??No gross active bleeding. Nursing received a call from [facility] this afternoon that??his stool study showed PCR positive for enteropathogenic E. coli and Giardia. The patient does not have history of immunocompromise. Given that his diarrhea is improving,??no treatment is indicated for the E. coli. Start metronidazole 500 mg twice daily??for 7-day course as treatment for??Giardia infection. ?? Vital Signs?? Temperature: 98.6 DegF (12/11/22 04:03:00) Temperature Route: Oral (12/11/22 04:03:00) Pulse Rate: 82 bpm (12/11/22 08:38:00) Respiratory Rate: 18 br/min (12/11/22 04:03:00) Systolic Blood Pressure: 137 mm Hg (12/11/22 08:39:00) Diastolic Blood Pressure: 84 mm Hg (12/11/22 08:39:00) Blood pressure sites: Arm, left (12/11/22 04:03:00) Mean Arterial Pressure: 102 mm Hg (12/11/22 04:03:00) Pulse Pressure: 38 mm Hg (12/11/22 04:03:00) Oxygen Saturation: 98 % (12/11/22 04:03:00) Mode of Delivery (Oxygen): Room air (12/11/22 04:03:00) Early Warning Score: 0 (12/11/22 08:42:07) ? Mobility & Ambulation Level Mobility & Ambulation Level Activity Assistance: Standby assist (12/10/22) Activity Status ADL: Bathroom privileges, Up with assistance (12/10/22) Ambulatory devices needed: None (12/10/22) ?? Therapeutic Activity Therapeutic Activities/Mobility/Balance?? No qualifying data available. ?? . Physical Exam Awake alert no acute distress Bilateral air entry no added sound S1-S2 no MRG Abdomen soft, obese, NTND, bowel sound present Extremities: No edema, warm AOx3, no focal deficit Consultants Cardiology Pending Results Add On Lab Order ordered on 12/10/2022 Follow-Up Appointments Added Follow Up ?Time Frame ?Comments Neal Pratt MD?1 week: call to discuss follow up visit?hospital follow up with cardiology Vivien Hernández MD?1 week: call to discuss follow up visit?hospital follow up Patient Instructions Please follow up with Dr. Pratt from cardiology and your PCP as soon as possible after discharge Please take all medications as prescribed Please continue to abstain from alcohol use as already discussed, this will prevent further damage to your heart than what has been done already Please follow up on 12/18/22 at 2:00 pm for your appointment to get the vitriol??injection to help with alcohol use cessation Post Discharge Care Discharge ?Discharge after seen by Attending MD, ??12/11/22 9:31:00 EDT Discharge Prescriptions ?ePrescribed, ??12/11/22 9:31:00 EDT Home Health Face to Face ^HomeHealthFTF Results Discharge Labs BLOOD COUNT & DIFF WBC 12.6 k/mm3 (High)?? 12/11/2022 02:22 RBC 3.98 m/mm3 (Low)?? 12/11/2022 02:22 Hgb 9.0 Gm/dL (Low)?? 12/11/2022 02:22 Hct 29.2 % (Low)?? 12/11/2022 02:22 MCV 73.4 femtoliters (Low)?? 12/11/2022 02:22 MCH 22.6 pg (Low)?? 12/11/2022 02:22 MCHC 30.8 g/dL (Low)?? 12/11/2022 02:22 Platelet Count 248 k/mm3 ()?? 12/11/2022 02:22 RDW-SD 41.5 femtoliters ()?? 12/11/2022 02:22 MPV 12.2 femtoliters ()?? 12/11/2022 02:22 Nucleated RBC (Automated) 0.5 #/100 WBC'S ()?? 12/11/2022 02:22 Abs. NRBC 0.1 k/mm3 ()?? 12/11/2022 02:22 ?? CHEM GENERAL Sodium 139 mmol/L ()?? 12/11/2022 02:22 Potassium 4.2 mmol/L ()?? 12/11/2022 02:22 Chloride 103 mmol/L ()?? 12/11/2022 02:22 Bicarbonate Level 26 mmol/L ()?? 12/11/2022 02:22 Anion Gap 10 ()?? 12/11/2022 02:22 Glucose Level 92 mg/dL ()?? 12/11/2022 02:22 Glucose, POC 107 mg/dL (High)?? 12/09/2022 21:26 Hemoglobin A1C (Monitoring) 5.6 % ()?? 12/10/2022 00:06 BUN 7 mg/dL ()?? 12/11/2022 02:22 Creatinine-Blood 0.7 mg/dL ()?? 12/11/2022 02:22 Estimated GFR Creatinine 117 ML/MIN/1.73 M2 ()?? 12/11/2022 02:22 Calcium 8.7 mg/dL ()?? 12/11/2022 02:22 Phosphorus 3.0 mg/dL ()?? 12/10/2022 00:06 Magnesium 2.0 mg/dL ()?? 12/10/2022 00:06 Protein, Total 6.2 Gm/dL ()?? 12/10/2022 00:06 Albumin 3.8 Gm/dL ()?? 12/10/2022 00:06 AG Ratio 1.6 ()?? 12/10/2022 00:06 Alkaline Phosphatase 105 units/L ()?? 12/10/2022 00:06 AST (SGOT) 57 units/L (High)?? 12/10/2022 00:06 ALT (SGPT) 34 units/L ()?? 12/10/2022 00:06 Bilirubin, Total 1.1 mg/dL ()?? 12/10/2022 00:06 Vitamin B12 Level 375 pg/mL ()?? 12/10/2022 00:06 Folic Acid Level 4.4 ng/mL (Low)?? 12/10/2022 00:06 Iron Level 153 mcg/dL ()?? 12/10/2022 00:06 Iron Binding Capacity, Unsaturated 183 mcg/dL ()?? 12/10/2022 00:06 Iron Binding Capacity, Estimated Total 336 mcg/dL ()?? 12/10/2022 00:06 % Iron Saturation 46 % ()?? 12/10/2022 00:06 Ferritin Level 574 ng/mL (High)?? 12/10/2022 00:06 ?? COAG APTT 44.0 seconds (High)?? 12/10/2022 07:11 ? ENDOCRINE/TUMOR MARKER TSH 6.17 uIU/mL (High)?? 12/10/2022 00:06 ? IMMUNOLOGY GENERAL Transferrin 263 mg/dL ()?? 12/10/2022 00:06 ? LIPID STUDIES Cholesterol 130 mg/dL ()?? 12/10/2022 00:06 Triglycerides 204 mg/dL (High)?? 12/10/2022 00:06 HDL Cholesterol 44 mg/dL ()?? 12/10/2022 00:06 LDL Cholesterol 45 mg/dL ()?? 12/10/2022 00:06 Non HDL Cholesterol 86 mg/dL ()?? 12/10/2022 00:06 ? VIROLOGY COVID-19 PCR Specimen Source NASAL ()?? 12/09/2022 15:14 COVID-19 PCR Result NEGATIVE ()?? 12/09/2022 15:14 ? Blood Glucose Trend Glucose Level: 92 mg/dL (12/11/22 02:22:00) ? Microbiology ?? COVID-19 (2019 Novel Coronavirus) PCR?? Completed?? Source: Nasal Body Site: Nose Collected Dt/Tm: 12/09/2022 15:14 Last Updated Dt/Tm: 12/10/2022 04:54 ? 40??minutes spent on discharge * Chandrika Aldridge: PERFORM Event Display: Patient Education/Instruction Authored Date: [id number] Inpatient Adult Discharge Instructions [place] [id number] Name: FRANKY ARMAS : 1975 Visit: 12/09/2022 15:04:00 Current Date: 12/11/2022 11:40 Account: [id number] Inpatient Adult Discharge Instructions We would like to thank you for allowing us to assist you with your healthcare needs. The following includes patient education materials and information regarding your injury/illness. Our entire staffstrives to provide an excellent experience for our patients and their families. PLEASE ENSURE YOU FOLLOW-UP PER THE INSTRUCTIONS BELOW! ?? YOUR OPINION IS IMPORTANT TO US! Please complete the survey you may receive by mail or email. Your feedback will be used to make improvements to the healthcare experiences of our patients and their families. Surveys are administered by [employer] ?? If further treatment with your primary care physician or another doctor is recommended, it is important for you to keep the appointment. Call your primary care physician or return to the Emergency Department immediately if your condition worsens, fails to improve, or new symptoms develop. If you need to find a doctor, you can call [facility] [employer] [facility] for a referral at [phone] or toll free at [phone] or log in to [email or web address].. ?? You can view and manage your care through the patient portal or by using a health care sophia of your choosing. [employer] is a website that allows you to securely view your medical information including your hospital discharge summary, office visit summaries, medications and follow-up visits. You can also request appointments, renew medications, and request access to your medical information using a health care sophia of your choosing, or just ask a question. You can enroll at [email or web address] or register during your next office visit. You have been discharged from [facility], Patient Care Unit: M5. If you have any questions regarding these instructions after you leave, please call us and we will be happy to assist you. [facility] Your Care Team Attending Physician Margie Hurley MD Discharging Providers Margie Hurley MD Reason for Admission Transfer from [facility] for acute cardiomyopathy, ? NSTEMI Your Diagnosis Non-ST elevation WA (NSTEMI) Cardiomyopathy Anemia Diarrhea Infection by Giardia lamblia Enteropathogenic Escherichia coli infection Hypokalemia Tests Performed Below is a partial list of the tests performed during your hospitalization. You may have had other tests and procedures not included in this list. Please discuss all test results with your provider. B12 Vitamin Level Basic Metabolic Panel CBC Comprehensive Metabolic Panel COVID-19 (2019 Novel Coronavirus) PCR FERRITIN Folate Level GLUCOSE POC Hgb A1C (Monitoring) IRON & TIBC Lipid Panel Magnesium Level Phosphorus Level PTT TRANSFERRIN TSH Primary Care Provider Vivien Hernández MD Advance Directive Health Care Proxy on File Yes - Health Care Proxy Discharge Vitals Temperature: 98.8 DegF Weight: 93.3 kg Pulse Rate: 82 bpm ?? Respiratory Rate: 18 br/min ?? Systolic Blood Pressure:??139 mm Hg??High ?? Diastolic Blood Pressure:??86 mm Hg??High ?? Oxygen Saturation: 96 % ?? Studies Pending All tests and labs ordered during this hospital stay have been completed unless listed below. Please discuss all pending results with your provider listed above in these instructions. ?? Add On Lab Order What to do next Instructions From Your Doctor Please follow up with Dr. Pratt from cardiology and your PCP as soon as possible after discharge Please take all medications as prescribed Please continue to abstain from alcohol use as already discussed, this will prevent further damage to your heart than what has been done already Please follow up on 12/18/22 at 2:00 pm for your appointment to get the vitriol??injection to help with alcohol use cessation Discharge Orders You Need to Schedule the Following Appointments Follow Up with??Neal Pratt MD When:??Within 1 week: call to discuss follow up visit Why: hospital follow up with cardiology Where: [address] [place] [address] [address] [facility] [employer] [place] [address]- Follow Up with??Vivien Hernández MD When:??Within 1 week: call to discuss follow up visit Why: hospital follow up Where: [address] [place] [address]- December 18, 2022 @ 2:00pm -----[place] [employer]---Vivtrol Injection ?[address] [place]? [phone] ?pl ease bring photo IDand insurance cards with you to appointment Discharge Medications FRANKY GATES :1975 Visit Date:12/09/2022 Medications: Please continue your medications until treatment is completed or stopped by your provider. Medications not listed below should be discontinued. Discuss any questions related to medications with your provider. What How Much When Instructions Next Dose New Cyanocobalamin (Vitamin B12 1000 mcg oral tablet) 1,000 Microgram Oral Daily Pickup at [facility] tomorrow New Folic Acid (folic acid 1 mg oral tablet) 1 Milligram Oral Daily Pickup at [facility] tomorrow New Lisinopril (lisinopril 5 mg oral tablet) 2.5 Milligram Oral Daily Pickup at [place] [address] tomorrow New Metronidazole (metroNIDAZOLE 500 mg oral tablet) 500 Milligram Oral Twice a day Duration: 7 Days Pickup at [place] [address] tonight Changed Metoprolol (metoprolol 50 mg oral tablet, extended release) 1 tab(s) Oral Daily Pickup at [place] [address] tomorrow Unchanged Aspirin (aspirin 81 mg oral delayed release tablet) 1 tab(s) Oral Daily tomorrow Unchanged Atorvastatin (atorvastatin 80 mg oral tablet) 1 tab(s) Oral Daily tomorrow Unchanged Nicotine (nicotine 14 mg/ 24 hr transdermal film, extended release) 1 patch(es) Topically Daily tomorrow Pharmacy Information [place] [address]: [address] [place], [place] [id number] [phone] [facility]: [address] [place], [place] [phone] ?? What How Much When Comments Stop Taking Melatonin (Melatonin 5 mg oral tablet) 1 tab(s) Oral Daily at Bedtime as needed for for insomnia Stop Taking Omeprazole (omeprazole 20 mg oral enteric coated capsule) 1 capsule Oral Daily Test Results Below is a partial list of the most recent Laboratory test results done prior to this discharge. You may have had other tests and procedures not included in this list. Please discuss all test resultswith your provider. B12 Vitamin Level (12/10/2022) ???Vitamin B12 Level - 375 pg/mL Basic Metabolic Panel (12/11/2022) ???Sodium - 139 mmol/L???Potassium - 4.2 mmol/L???Chloride - 103 mmol/L???Bicarbonate Level - 26 mmol/L???Anion Gap - 10???Glucose Level - 92 mg/dL???BUN - 7 mg/dL???Creatinine-Blood - 0.7 mg/dL???Estimated GFR Creatinine - 117 ML/MIN/1.73 M2???Calcium - 8.7 mg/dL CBC (12/11/2022) ???WBC - 12.6 k/mm3???RBC - 3.98 m/mm3???Hgb - 9.0 Gm/dL???Hct - 29.2 %???MCV - 73.4 femtoliters???MCH - 22.6 pg???MCHC - 30.8 g/dL???Platelet Count - 248 k/mm3???RDW-SD - 41.5 femtoliters???MPV - 12.2 femtoliters???Nucleated RBC (Automated) - 0.5 #/100 WBC'S???Abs. NRBC - 0.1 k/mm3 Comprehensive Metabolic Panel (12/10/2022) ???Sodium - 140 mmol/L???Potassium - 3.8 mmol/L???Chloride - 102 mmol/L???Bicarbonate Level - 25 mmol/L???Anion Gap - 13???Glucose Level - 106 mg/dL???BUN - 5 mg/dL???Creatinine-Blood - 0.6 mg/dL???Estimated GFR Creatinine - 123 ML/MIN/1.73 M2???Calcium - 8.9 mg/dL???Protein, Total - 6.2 Gm/dL???Alb umin - 3.8 Gm/dL???AG Ratio - 1.6???Alkaline Phosphatase - 105 units/L???AST (SGOT) - 57 units/L???ALT (SGPT) - 34 units/L???Bilirubin, Total - 1.1 mg/dL COVID-19 (2019 Novel Coronavirus) PCR (12/09/2022) ???COVID-19 PCR Specimen Source - NASAL???COVID-19 PCR Result - NEGATIVE FERRITIN (12/10/2022) ???Ferritin Level - 574 ng/mL Folate Level (12/10/2022) ???Folic Acid Level - 4.4 ng/mL GLUCOSE POC (12/09/2022) ???Glucose, POC - 107 mg/dL Hgb A1C (Monitoring) (12/10/2022) ???Hemoglobin A1C (Monitoring) - 5.6 % IRON & TIBC (12/10/2022) ???Iron Level - 153 mcg/dL???Iron Binding Capacity, Unsaturated - 183 mcg/dL???Iron Binding Capacity, Estimated Total - 336 mcg/dL???% Iron Saturation - 46 % Lipid Panel (12/10/2022) ???Cholesterol - 130 mg/dL???Triglycerides - 204 mg/dL???HDL Cholesterol - 44 mg/dL???LDL Cholesterol - 45 mg/dL???Non HDL Cholesterol - 86 mg/dL Magnesium Level (12/10/2022) ???Magnesium - 2.0 mg/dL Phosphorus Level (12/10/2022) ???Phosphorus - 3.0 mg/dL PTT (12/10/2022) ???APTT - 44.0 seconds TRANSFERRIN (12/10/2022) ???Transferrin - 263 mg/dL TSH (12/10/2022) ???TSH - 6.17 uIU/mL Allergies (NKA means No Known Allergies) NKA Problems No qualifying data available Education Materials Below is the list of Educational Leaflet Providered with your Discharge Instructions. Valuables and Belongings I fully understand and agree that [facility] accepts no responsibility for all my personal property including clothing, toilet articles, radios, jewelry, dentures, hearing aids, rings, money, or any other property that is in my possession or is brought to me after admission. I understand certain valuables may be placed in a hospital safe for a short period of time. I understand that the hospital is not liable for loss or damage due to accident, fire, or other natural occurrence while said property is in the safe. I accept full responsibility for any personal property that I keep with me, and will not hold the hospital responsible in case of loss or disappearance. I acknowledge that i have been encouraged to send valuables and belongings home. ?? Review of Valuable and Belonging List: With patient Date for Pt to Sign Valuables/Belongings: 12/09/22 20:17:00 ?? Other Discharge Information ? Pulmonary Rehab Status?? Pulmonary Rehab Discharge Status?? Respiratory Rate: 18 br/min ? Common Emergency Awareness Tips IS IT A STROKE? Act FAST and Check for these signs: FACE Does the face look uneven? ARM Does one arm drift down? SPEECH Does their speech sound strange? TIME Call at any sign of stroke ?? Heart Attack Signs Chest discomfort: Most heart attacks involve discomfort in the center of the chest and lasts more than a few minutes, or goes away and comes back. It can feel like uncomfortable pressure, squeezing, fullness or pain. Discomfort in upper body: Symptoms can include pain or discomfort in one or both arms, back, neck, jaw or stomach. Shortness of breath: With or without discomfort. Other signs: Breaking out in a cold sweat, nausea, or lightheaded. Remember, MINUTES DO MATTER. If you experience any of these heart attack warning signs, call to get immediate medical attention! ?? Smoking can increase your chances of developing chronic health problems and can cause harmful effects to other family members in your house. If you smoke, you are strongly encouraged to quit. Please call [facility] [employer] [facility] at [phone] or [phone] ([phone]) or log in to [email or web address] for referrals to smoking cessation programs. ?? 005 Suicide & Crisis Lifeline is available 06/01 if you or someone you know needs to find a reason to keep living. By calling 218 you'll be connected to a skilled, trained counselor at a crisis center in your area. INPATIENT DISCHARGE INSTRUCTIONS SIGNATURE PAGE FRANKY GATES Location:[facility] Registration Date and Time:12/09/2022 15:04 EDT Primary Care Physician: Vivien Hernández MD, Attending Physician: Margie Hurley MD, I FRANKY GATES, have received the above patient education materials/instructions and have verbalized understanding. If ambulance or transport services are being used I further acknowledge being given a choice of service. ?? If you need to contact me, please call me at this number: . Patient/Bin Packer Name: Patient/Bin Packer Signature: Relationship to Patient: Witness Name/Signature: Date: Chandrika Ascencio: PERFORM Event Display: Patient Education Leaflets Authored Date: [id number] Substance Use Disorder: Your Treatment Options ?? 16820 Adicci??n: kate opciones de tratamiento No hay un solo tratamiento de la adicci??n que funcione para todo el addi. El tratamiento que sea mejor para usted puede depender de muchos factores. Para muchas personas, el tratamiento puede ser sonu combinaci??n de medicamentos, cambios en el comportamiento y apoyo. Medicamentos Los medicamentos pueden ayudar con los s??ntomas de abstinencia. Pueden tambi??n reducir el deseo de consumir la sustancia que provoca la adicci??n, ya que pueden anular kate efectos positivos. Por ejemplo: ??? La metadona, la buprenorfina y la naltrexona se usan para la adicci??n a la hero??na y otros opioides. ??? El acamprosato, el disulfiram y la naltrexona se usan para tratar la adicci??n al alcohol. ??? El bupropi??n, la vareniclina o la terapia de sustituci??n de la nicotina pueden ayudar con la adicci??n a la nicotina. Estos medicamentos smith demostrado ser de bastante ayuda para la gente que est?? intentando superar sonu adicci??n. Tratamiento para el cambio de comportamiento ??? Entrevista motivacional ( WA , por kate siglas en ingl??s). Se trata de un tipo de consejer??a que le alienta a cambiar christianson comportamiento. El objetivo es explorar y resolver los sentimientos encontrados que pueda tener respecto de dejar de consumir drogas o alcohol. El terapeuta le ayudar?? a descubrir y a centrarse en kate razones personales para desear el cambio. ? Terapia cognitiva conductual ( CBT , por kate siglas en ingl??s). En esta terapia, usted descubrir?? cu??les son kate problemas de conducta y aprender?? c??mo cambiar esas conductas. Por ejemplo, si el enojo o el estr??s le producen deseos de beber, un terapeuta puede ayudarle aaprender maneras saludables de manejar esos sentimientos. ??? Enfoque basado en el refuerzo de la comunidad ( GLOBAL SUPPLY CHAIN DIRECTOR , por kate siglas en ingl??s).Esta terapia emplea vouchers o tenzin para ayudarle a llevar un estilo de jan olena de drogas y de alcohol. Con cada muestra de orina limpia que tenga, le lacey??n un voucher para que use a modo de recompensa. Roland le ayudar?? a estar alejado del alcohol y las drogas mientras aprende nuevas habilidades para christianson jan diaria. ??? Refuerzo de la comunidad y capacitaci??n para la armando ( CRAFT , por kate siglas en ingl??s). Esta terapia se centra en aconsejar y capacitar a christianson armando. El terapeuta les ense??ar?? c??mo motivarlo a usted para que busque o siga con el tratamiento. Esta terapia tambi??n ayuda a que christianson armando reconozca situaciones familiaresque quiz??s lo alienten a beber o a usar drogas.? Grupos de ayuda mutua. Estos grupos est??n coordinados por voluntarios que no son profesionales de la lynette. Christianson prop??sito es brindarse apoyo emocional y social unos a otros compartiendo las experiencias que smith tenido con el abuso de sustancias, y guiando a otros en el proceso de recuperaci??n. Muchos de estos grupos se basan en el modelo derecuperaci??n de los 12 pasos y ofrecen sesiones para todo tipo de adicci??n (por ejemplo, AA o Alcoh??licos An??nimos; NA o Narc??ticos An??nimos). ??? Consejer??a individual para drogadependencia ( IDC , por kate siglas en ingl??s). Esta forma com??n de terapia generalmente incorpora el modelo de la adicci??n tamie enfermedad y la dimensi??n espiritual de la recuperaci??n al tiempo que tambi??n se enfoca en el cambio de comportamiento por medio de la participaci??n en programas de los 12 pasos.?? Last Reviewed Date: 2016 ?? [id number] [employer]. Todos los derechos reservados. Esta informaci??n no pretende sustituir la atenci??n m??dica profesional. S??lo christianson m??dico puede diagnosticar y tratar un problema de lynette. ?? * Chandrika Aldridge: PERFORM Event Display: Patient Education Leaflets Authored Date: [id number] Naltrexone Injection ?? [id number] Naltrexone Injection Brands: Vivitrol Usos Mee medicamento se usa para las siguientes afecciones: ??? adicci??n a las drogas ??? dependencia del alcohol ?? Instrucciones Mee medicamento se lo lacey??n en el consultorio m??dico. Mee medicamento se administra en forma de inyecci??n en un m??sculo. Mee medicamento debe utilizarlo ??nicamente sonu persona que haya sido entrenada para reconocer cu??ndo y c??mo debe utilizarse. Las interacciones con otros medicamentos pueden cambiar la forma en que act??an los medicamentos o aumentar el riesgo de presentar efectos secundarios. Informe a kate profesionales sanitarios acerca de todos los medicamentos que usa. Roland incluye medicamentos con y sin receta m??dica, vitaminas y medicamentos a base de hierbas. Hable con christianson m??dico o farmac??utico antes de empezar o dejar de usar cualquier medicamento. Es muy importante que asista a todas las citas para evaluaciones y pruebas m??dicas mientras usa mee medicamento. ?? Precauciones En casos poco frecuentes, mee medicamento podr??a causar sonu lesi??n grave en el sitio de la inyecci??n. Llame a christianson m??dico de inmediato si nota cualquier dolor, inflamaci??n, ampollas, llagas, bultos debajo de la piel, o costras en el sitio de la inyecci??n. Mee medicamento se asocia con un problema del h??gado raro brii grave. Hable con christianson m??dico acercade los primeros signos de problemas del h??gado y de los riesgos y beneficios de usar mee medicamento. Podr??a volverse m??s sensible a los efectos de los medicamentos opi??ceos mientras usa mee medicamento o despu??s de usarlo. Roland puede aumentar el riesgo de sobredosis graves o mortales. Mee medicamento puede afectar christianson capacidad de mantenerse alerta o de reaccionar con rapidez. No maneje ni opere m??quinas hasta que sepa qu?? efecto le provocar?? mee medicamento. Si es posible, evite el uso con alcohol, marihuana u otros medicamentos que puedan causar mareos o somnolencia. Entre estos se incluyen productos para tratar alergias o resfriados, relajantes musculares, medicamentos para ayudar a dormir y medicamentos para aliviar el dolor. Informe a christianson m??dico o farmac??utico si est?? o planea quedar embarazada, o si est?? amamantando. No amamante mientras est?? usando mee medicamento. Mee medicamento puede pasar al beb?? a anna??aircraft worker la leche materna. Llame al m??dico de inmediato si se le hinchan las willie, la jerica, los labios, los ojos, la garganta o la lengua. Lleve siempre sonu tarjeta de identificaci??n o use un brazalete de alerta m??dica que indique christianson afecci??n m??dica. Algunos pacientes presentan efectos secundarios graves con mee medicamento. P??chris a christianson farmac??utico que le muestre la informaci??n de la Administraci??n de Alimentos y Medicamentos (FDA) y que laanalice con usted. ?? Efectos Secundarios La siguiente es sonu lista de algunos efectos secundarios comunes de mee medicamento. Hable con el m??dico para saber qu?? debe hacer en benjamin de tener estos u otros efectos secundarios. ??? sensaci??n de agitaci??n o dificultad para dormir ??? p??rdida de apetito ??? mareos o aturdimiento ??? falta de energ??a y cansancio ??? verna de uzma ??? dolor, enrojecimiento, hinchaz??n cerca del sitio de la inyecci??n ??? dolor en las articulaciones o los m??sculos ??? n??usea ??? moqueo nasal ??? indigesti??n estomacal o dolor abdominal Llame al m??dico u obtenga atenci??n m??dica de inmediato si nota cualquiera de estos efectos secundarios m??s graves: ??? dolor abdominal o p??lvico intenso ??? reacci??n al??rgica grave ??? dolor en el pecho ??? confusi??n ??? diarrea ??? alucinaciones (pensamientos extra??os, ruthy u o??r cosas que no son reales) ??? dolor de uzma intenso o persistente ??? signos de da??o hep??cici (tales tamie ojos o piel amarillentos, orina oscura o cansancio inusual) ??? nerviosismo ??? temblores ??? falta de aliento ??? heces de color douglas ??? v??benito intenso o persistente Algunas personas podr??an tener reacciones al??rgicas a mee medicamento. Entre los s??ntomas pueden incluirse: dificultad para respirar, erupci??n en la piel, comez??n, hinchaz??n o mareos intensos.Si nota algunos de estos s??ntomas, busque asistencia m??dica r??pidamente. ?? Extra Hable con christianson m??dico, enfermero o farmac??utico si tiene alguna pregunta acerca de mee medicamento. ?? [email or web address] NOTA IMPORTANTE: En mee documento hay sonu explicaci??n breve sobre c??mo usar el medicamento, perono incluye todo lo que hay que saber acerca del medicamento. Christianson m??dico o christianson farmac??utico podr??a suministrarle otros documentos acerca de christianson medicamento. Comun??quese con ellos si tiene alguna pregunta. Siga siempre kate consejos. Sonu descripci??n m??s completa de mee medicamento est?? disponibleen ingl??s. Escanee mee c??digo en christianson tel??fono inteligente o en christianson tableta, o use la direcci??n web que aparece a continuaci??n. Tambi??n puede pedirle a christianson farmac??utico sonu copia impresa. Si tiene alguna pregunta, h??gasela a christianson farmac??utico. La exhibici??n y el uso de esta informaci??n sobre f??rmacos est?? sujeta a los T??rminos de Uso. Copyright(c) 2022 [employer]. ?? [id number] [employer]. All rights reserved. This information is not intended as a substitute for professional medical care. Always follow your healthcare professional's instructions. ?? * Chandrika Aldridge: PERFORM Event Display: Patient Education Leaflets Authored Date: [id number] Metronidazole Oral Tablet ?? [id number] Metronidazole Oral Tablet Brands: Flagyl Usos Para la infecci??n. ?? Instrucciones Tragar con un vaso de agua lleno (8 onzas), a menos que christianson m??dico le d?? otras instrucciones. Puede tomarse con alimentos para prevenir molestias estomacales. Mee medicamento funciona mejor si se usa a aproximadamente la misma hora todos los d??as. Espere la misma cantidad de tiempo entre sonu dosis y la siguiente para mantener sonu cantidad continua de medicamento en el organismo. Mantenga el medicamento a temperatura ambiente, alejado rey y el calor. Si olvida adwoa sonu dosis a tiempo, t??jackson power pronto lo recuerde. Si es saud la hora de la dosis siguiente, no tome la dosis olvidada. Vuelva al horario normal. No tome dos dosis al mismo tiempo. Las interacciones con otros medicamentos pueden cambiar la forma en que act??an los medicamentos o aumentar el riesgo de presentar efectos secundarios. Informe a kate profesionales sanitarios acerca de todos los medicamentos que usa. Roland incluye medicamentos con y sin receta m??dica, vitaminas y medicamentos a base de hierbas. Hable con christianson m??dico o farmac??utico antes de empezar o dejar de usar cualquier medicamento. Informe a christianson m??dico si kate s??ntomas no mejoran o si empeoran. Siga usando mee medicamento manoj el n??olaf total de d??as que se lo recetaron. No deje de usarel medicamento, incluso si empieza a sentirse mejor. Es muy importante que asista a todas las citas para evaluaciones y pruebas m??dicas mientras usa mee medicamento. ?? Precauciones Informe a christianson m??dico y a christianson farmac??utico si alguna vez douglas tenido sonu reacci??n al??rgica a un medicamento. No use el medicamento m??s veces de lo indicado. Mee medicamento puede afectar christianson capacidad de mantenerse alerta o de reaccionar con rapidez. No maneje ni opere m??quinas hasta que sepa qu?? efecto le provocar?? mee medicamento. Evite el alcohol y los productos que contengan glicol de propileno manoj el tratamiento con mee medicamento y 3 d??as despu??s. Hable con christianson proveedor de atenci??n m??dica antes de aplicarse cualquier vacuna. D??gale a christianson m??dico si tiene diarrea moderada a intensa mientras usa mee medicamento. No use medicamentos de venta olena (sin receta) para tratar la diarrea. Informe a christianson m??dico o farmac??utico si est?? o planea quedar embarazada, o si est?? amamantando. No comparta mee medicamento con otras personas a quienes no se les recet??. ?? Efectos Secundarios La siguiente es sonu lista de algunos efectos secundarios comunes de mee medicamento. Hable con el m??dico para saber qu?? debe hacer en benjamin de tener estos u otros efectos secundarios. ??? p??rdida de apetito ??? diarrea ??? mareos ??? verna de uzma ??? n??useas y v??mitos ??? indigesti??n estomacal o dolor abdominal ??? cambios en el sabor o sabor desagradable Llame al m??dico u obtenga atenci??n m??dica de inmediato si nota cualquiera de estos efectos secundarios m??s graves: ??? confusi??n ??? adormecimiento u hormigueo en las willie y los pies ??? dolor de uzma intenso opersistente ??? signos de da??o hep??cici (tales tamie ojos o piel amarillentos, orina oscura o cansancio inusual) ??? convulsiones ??? inestabilidad al caminar ??? dificultad o molestia al orinar ???picor en la vagina o infecci??n vaginal por c??ndida ??? cambio o p??rdida s??davion de la visi??n Algunas personas podr??an tener reacciones al??rgicas a mee medicamento. Entre los s??ntomas pueden incluirse: dificultad para respirar, erupci??n en la piel, comez??n, hinchaz??n o mareos intensos.Si nota algunos de estos s??ntomas, busque asistencia m??dica r??pidamente. ?? Extra Hable con christianson m??dico, enfermero o farmac??utico si tiene alguna pregunta acerca de mee medicamento. ?? [email or web address] NOTA IMPORTANTE: En mee documento hay sonu explicaci??n breve sobre c??mo usar el medicamento, perono incluye todo lo que hay que saber acerca del medicamento. Christianson m??dico o christianson farmac??utico podr??a suministrarle otros documentos acerca de christianson medicamento. Comun??quese con ellos si tiene alguna pregunta. Siga siempre kate consejos. Sonu descripci??n m??s completa de mee medicamento est?? disponibleen ingl??s. Escanee mee c??digo en christianson tel??fono inteligente o en christianson tableta, o use la direcci??n web que aparece a continuaci??n. Tambi??n puede pedirle a christianson farmac??utico sonu copia impresa. Si tiene alguna pregunta, h??gasela a christianson farmac??utico. La exhibici??n y el uso de esta informaci??n sobre f??rmacos est?? sujeta a los T??rminos de Uso. Copyright(c) 2022 WOWash. ?? The [employer]. All rights reserved. This information is not intended as a substitute for professional medical care. Always follow your healthcare professional's instructions. ?? * Event Display: Hemodynamic Procedure Report Authored Date: History and physical note * Janes Landis MD: PERFORM Event Display: History and Physical Hospital Authored Date: Patient: ??FRANKY GATES ? Age:??47 Years?Sex:??Male?:??1975?? Chief Complaint/Reason for Consultation Transfer from [facility] for acute cardiomyopathy, ? NSTEMI History of Present Illness 47-year-old male without significant past medical history, not on medications,??with tobacco use disorder and possible alcohol use disorder,??who presented to [facility] on??12/08/2022??complaining of midsternal chest discomfort??radiating to his left arm??intermittently??for almost a month.?He works in [employer], and noticed this while working outside.?? He does not feel that it??was relieved with rest.?? Symptoms became more frequent over the 2 days preceding presentation.?? He noted associated shortness of breath and occasional sweating. ??He denied fever or cough.?? No vomiting or abdominal pain.?? He did report nonbloody diarrhea??for a few days prior to presentation as well,with general malaise and fatigue. ?? At [facility], the patient was afebrile and hemodynamically stable.?? He continued to havesome loose stools which were sent for studies. ??His last bowel movement was this morning,??and reported as??soft and more formed.?? He was found to be hypokalemic and received supplementation.?? He was also found to be anemic??with unclear etiology, and iron studies were normal.?? EKG??showed sinus rhythm??with nonspecific ST changes, and troponin values were not elevated.?? Echocardiogram??was concerning with EF of 38%??and multiple wall motion abnormalities.?? The patient was started on heparin drip, aspirin, high- dose atorvastatin,??and metoprolol tartrate,??and now transferred here to [facility] for diagnostic cardiac catheterization.?? He has no chest pain at rest at thistime. Review of Systems Other than those positives as noted in the HPI above, the remaining comprehensive 14-point review of systems is negative. Objective Measurements?? Weight: 95 kg (12/09/22) Dry Weight: 95 kg (12/09/22) ? Vital Signs?? Temperature: 98.6 DegF (12/09/22 17:39:00) Temperature Route: Oral (12/09/22 17:39:00) Pulse Rate: 84 bpm (12/09/22 15:03:00) Respiratory Rate: 19 br/min (12/09/22 15:03:00) Systolic Blood Pressure:??143 mm Hg??High (12/09/22 15:03:00) Diastolic Blood Pressure:??91 mm Hg??High (12/09/22 15:03:00) Blood pressure sites: Arm, left (12/09/22 15:03:00) Mean Arterial Pressure: 108 mm Hg (12/09/22 15:03:00) Pulse Pressure: 52 mm Hg (12/09/22 15:03:00) Oxygen Saturation: 97 % (12/09/22 15:03:00) Mode of Delivery (Oxygen): Room air (12/09/22 15:03:00) Early Warning Score: 0 (12/09/22 18:00:28) ? Pain Scores?? No qualifying data available. ? Physical Exam General Appearance: Alert, appears stated age,??answers questions appropriately HEENT: Normocephalic, atraumatic, PERRL, EOMI, no scleral icterus, no facial droop, moist mucous membranes, no oropharynx lesions?? Neck: Supple, no JVD Cardiac: RRR, S1 & S2 present, II/ systolic murmur??LSB Chest: Clear to auscultation bilaterally, no wheezing / ronchi / rales Abdomen: Soft, nontender, protuberant / obese, no rebound or guarding, no masses, normal bowel sounds in all quadrants Extremities: No clubbing, cyanosis, or edema. ??2+ distal pulses.?No calf tenderness or cords Skin: Warm, dry, no rash or open wounds Neuro: ??A & O x 3, no focal motor or sensory deficits Psych: ??Stable mood, appropriate affect Assessment/Plan Assessment:??47-year-old male without significant past medical history, not on medications, with tobacco use disorder and possible alcohol use disorder, who presented to [facility] on 12/08/2022omplaining of midsternal chest discomfort radiating to his left arm intermittently for almost a fri.?Symptoms became more frequent over the 2 days preceding presentation.??He also reported diarrheal illness for a few days.??EKG showed sinus rhythm with nonspecific ST changes, and troponin values were not elevated. Echocardiogram was concerning with EF of 38% and multiple wall motion abnorm alities. The patient was started on heparin drip, aspirin, high-dose atorvastatin, and metoprolol tartrate, and now transferred here to [facility] for diagnostic cardiac catheterization. ?? Cardiomyopathy (I42.9) Non-ST elevation WA (NSTEMI) (I21.4):??The patient was noted to have new??cardiomyopathy with EF??38%??at [facility], with multiple wall motion abnormalities.??No significant valvular disease noted.??The patient has been sent here for ischemia work-up.??Other differential diagnoses include??dilated cardiomyopathy in the setting of??chronic alcohol use??or uncontrolled hypertension.??He is currently hemodynamically stable without chest pain.??He is not volume overloaded on exam. -Admit to the medical floor, continuous EKG monitoring -N.p.o. after midnight for cardiac procedure in the morning -Continue heparin drip??per ACS protocol, follow??PTT and daily CBC -Continue aspirin??and atorvastatin as prescribed,??check lipid panel and hemoglobin A1c -Continue metoprolol 25 mg twice daily as prescribed -Further goal-directed??therapy??for cardiomyopathy??will depend on cardiac catheterization results -Smoking cessation counseling provided and nicotine patch ordered ?? Anemia (D64.9):??Patient denies known history of anemia.??He denies active blood loss. This could be in the setting of chronic alcohol use.?? [facility] panel [facility] [facility]??was normal. Check B12 level, folate level, and TSH. Monitor CBC. ?? Hypokalemia (E87.6):??Potassium supplemented at??[facility]. This was felt to be in the setting of diarrhea. We will follow-up metabolic panel??and magnesium level??with further supplementation as needed. ?? Infection by Giardia lamblia (A07.1) Enteropathogenic Escherichia coli infection (A04.0) Diarrhea (R19.7):??The patient states his diarrhea is improving.??No gross active bleeding. Nursing received a call from [facility] this afternoon that??his stool study showed PCR positive for enteropathogenic E. coli and Giardia. The patient does not have history of immunocompromise. Given that his diarrhea is improving,??no treatment is indicated for the E. coli. Start metronidazole 500 mg twice daily??for 7-day course as treatment for??Giardia infection. ?? VTE Prophylaxis:??On heparin drip. ?VTE Prophylaxis Assessment:??Excluded from VTE prophylaxis measure ?? Code Status:??FULL. ?Order Code Status:??Code Status Ordered ?? Discharge Planning:??Anticipate discharge home; 2 to 3 days hospitalization. ?? I spent a total of??84 minutes today reviewing the chart / medical records, evaluating the patient,evaluating and interpreting laboratory and imaging data, formulating and discussing the treatment plan, and documenting the encounter. ? Histories Allergies Allergies ?(Active and Proposed Allergies Only) NKA? (Severity: Unknown severity, Onset: Unknown) ? Past Medical History/Problem List Tobacco use disorder Alcohol use disorder ? Past Surgical History Right 4th finger surgery. ? Social History Alcohol Details:??Use: Current. ??Frequency: 3-5 times per week. ??Type: Beer. ??Other: 3 beers daily. Employment/School Details:??Status: Employed. ??Activity level: Moderate physical work. ??Workplace hazards: None. Home/Environment Details:??Safe place to go: Yes. ??Domestic violence in household: No. ??Alcohol in household: No. ??Firearms in household: No. ??Substance abuse in household: No. Substance Abuse Details:??Use: Never. Tobacco Details:??Current every day smoker, Type: Cigarettes. ??Tobacco use times per day: 7 cig / day. ? Family History No family history??of CAD. Mother:?? DM. Brother:?? DM. ? Medications Home Medications (started at [facility]) Aspirin (aspirin 81 mg oral delayed release tablet)?81?Milligram?1?tablet?By Mouth?Daily Atorvastatin (atorvastatin 80 mg oral tablet)?1?tab(s)?80?Milligram?By Mouth?Daily Metoprolol (metoprolol 25 mg oral tablet)?25?Milligram?1?tablet?By Mouth?2 times a day Nicotine (nicotine 14 mg/24 hr transdermal film, extended release)?1?patch(es)?Topically?Daily ? EKG study * Event Display: ECG 12-Lead Authored Date: Please click on pdf link to open report * Event Display: ECG 12-Lead Authored Date: Ventricular Rate: 91 BPM Atrial Rate: 91 BPM P-R Interval: 138 ms QRS Duration: 76 ms Q-T Interval: 398 ms QTC Calculation(Bazett): 489 ms P Charlotte: 52 degrees R Charlotte: 56 degrees T Charlotte: 52 degrees Normal sinus rhythm Normal ECG When compared with ECG of 10-DEC-2022 04:30, No significant change was found Confirmed by ELLEN AKHTAR MD ([id number]) on 12/11/2022 10:30:23 AM Trevor: ELLEN AKHTAR MD * Event Display: ECG 12-Lead Authored Date: Please click on pdf link to open report * Event Display: ECG 12-Lead Authored Date: Ventricular Rate: 82 BPM Atrial Rate: 82 BPM P-R Interval: 124 ms QRS Duration: 76 ms Q-T Interval: 426 ms QTC Calculation(Bazett): 497 ms P Charlotte: -14 degrees R Charlotte: 49 degrees T Charlotte: 49 degrees Normal sinus rhythm Normal ECG When compared with ECG of 08-JUL-2020 17:29, No significant change was found Confirmed by [facility] ([id number]) on 12/10/2022 12:25:32 PM Trevor: [facility] * Maximo Arias RN: PERFORM, SIGN, VERIFY Event Display: Progress Note Hospital Authored Date: Patient: FRANKY GATES Age: 47 years Sex: Male : 1975 Associated Diagnoses: None Author: Maximo Arias RN Findings Narrative/Incidental Pt resting comfortably in bed overnight, no acute events. Pt AOx4, VSS. Pt complains of slight chest pressure unchanged from previous, medicated with PRN Tylenol with good effect. pt continues on abx. Plan for D/C today.. * Chandrika Aldridge: MODIFY, SIGN, PERFORM, SIGN, VERIFY Event Display: Progress Note Hospital Authored Date: Patient: FRANKY GATES Age: 47 years Sex: Male : 1975 Associated Diagnoses: None Author: Chandrika Aldridge pt AAOx4 no c/o pain or sob for this RN SR on tele. remains on RA, LS clear multiple BMs today, pt remains continent of bowel ambulating independently in room, tolerating well s/p cardiac cath today. updated at bedside. TR band removed without complication IVF initiated post procedure per order call wilburn within reach bed locked in lowest position safety maintained 0--pt c/o 3/10 chest pressure, non radiating. denies numbness or tingling. EKG showing NSR. medicated with prn tylenol. pt states he had a similar episode last night and tylenol relieved the CP. cross cover paged. * Eber BLAND, Jacinta Wilkes: PERFORM, MODIFY Event Display: Progress Note Hospital Authored Date: Patient: ??FRANKY GATES ? Age:??47 Years?Sex:??Male?:??1975?? Subjective Seen and examined, vitals, labs and charts reviewed?? He speaks??both Turkish and Vincentian No major overnight events [facility] this AM?? : No CAD Recommend GDMT Patient counselled??regarding smoking cessation and alcohol cessation Review of Systems Negative??except as above Past Medical History No problems documented. ? Past Surgical History No surgery history documented. ? Objective Vital Signs?? Temperature: 98.5 DegF (12/10/22 08:03:00) Temperature Route: Oral (12/10/22 08:03:00) Pulse Rate: 84 bpm (12/10/22 08:03:00) Respiratory Rate: 18 br/min (12/10/22 08:03:00) Systolic Blood Pressure: 126 mm Hg (12/10/22 08:03:00) Diastolic Blood Pressure:??95 mm Hg??High (12/10/22 08:03:00) Blood pressure sites: Arm, left (12/10/22 08:03:00) Mean Arterial Pressure: 105 mm Hg (12/10/22 08:03:00) Pulse Pressure: 31 mm Hg (12/10/22 08:03:00) Oxygen Saturation: 98 % (12/10/22 08:03:00) Mode of Delivery (Oxygen): Room air (12/10/22 08:03:00) Early Warning Score: 0 (12/10/22 08:07:48) ? Physical Exam Awake alert no acute distress Bilateral air entry no added sound S1-S2 no MRG Abdomen soft, obese, NTND, bowel sound present Extremities: No edema, warm AOx3, no focal deficit _ Inpatient Medications Medications (15) Active SCHEDULED: (8) Aspirin 81 mg EC Tablet (aspirin 81 mg oral delayed release tablet) ??81 mg, By Mouth, Daily Atorvastatin 80 mg Tablet (atorvastatin 80 mg oral tablet) ??80 mg, By Mouth, Daily Lisinopril 5 mg Tablet (lisinopril 5 mg oral tablet) ??2.5 mg, By Mouth, Daily Metoprolol 25mg Tablet (metoprolol 25 mg oral tablet) ??25 mg, By Mouth, 2 times a day Metronidazole 500mg Tablet (Metronidazole Tablet) ??500 mg, By Mouth, 2 times a day NaCl 0.9% Flush 3ml (NaCL 0.9% Flush) ??3 mL, IV Push, Every 8 hours Nicotine 21 mg / 24 hour Patch (Nicotine Topical) ??21 mg, Topically, Daily Remove Patch (Remove ??Patch) ??1 each, Topically, Daily CONTINUOUS: (1) NaCL 0.9% (1000 mL) Cont IV 1,000 mL (NaCL 0.9% 1,000 mL) ??1,000 mL, IV Infusion, 100 mL/hr PRN: (6) Acetaminophen 325 mg Tablet (Acetaminophen Tablet) ??650 mg, By Mouth, Every 4 hours Melatonin 3 mg Tablet (Melatonin Tablet) ??3 mg, By Mouth, Daily at bedtime NaCl 0.9% Flush 3ml (NaCL 0.9% Flush) ??3 mL, IV Push, Every 8 hours Polyethylene Glycol 17 Gm Powder (MiraLax Powder) ??17 Gm 1 pack/packet, By Mouth, Daily Senna 8.6 mg / Docusate 50 mg tablet (Docusate/Senna Tablet) ??1 tablet, By Mouth, 2 times a day Simethicone 80 mg Chewable Tablet (Simethicone Tablet) ??80 mg, Chew, 3 times a day ? 72 Hour Antibiotic History Active Antibiotics Calendar Day Last Administered First Administered Metronidazole??500 mg, By Mouth, 2 times a day ?2 12/10/2022 08:07 12/09/2022 21:34 ? Results Microbiology ?? COVID-19 (2019 Novel Coronavirus) PCR?? Completed?? Source: Nasal Body Site: Nose Collected Dt/Tm: 12/09/2022 15:14 Last Updated Dt/Tm: 12/10/2022 04:54 ? Assessment/Plan Chief Complaint: Transfer from [facility] for acute cardiomyopathy, ? NSTEMI ?? Diagnoses 1. ??Cardiomyopathy ??(I42.9) 2. ??Non-ST elevation WA (NSTEMI) ??(I21.4) 3. ??Anemia ??(D64.9) 4. ??Hypokalemia ??(E87.6) 5. ??Infection by Giardia lamblia ??(A07.1) 6. ??Enteropathogenic Escherichia coli infection ??(A04.0) 7. ??Diarrhea ??(R19.7) ?? 47-year-old male without significant past medical history, not on medications, with tobacco use disorder and possible alcohol use disorder, who presented to [facility] on 12/08/2022 complaining of midsternal chest discomfort radiating to his left arm intermittently for almost a month.?Symptoms became more frequent over the 2 days preceding presentation.??He also reported diarrheal illness for a few days.??EKG showed sinus rhythm with nonspecific ST changes, and troponin values were not elevated. Echocardiogram was concerning with EF of 38% and multiple wall motion abnormalities. Thepatient was started on heparin drip, aspirin, high-dose atorvastatin, and metoprolol tartrate, and now transferred here to [facility] for diagnostic cardiac catheterization. ?? Cardiomyopathy (I42.9) Non-ST elevation WA (NSTEMI) (I21.4):??The patient was noted to have new??cardiomyopathy with EF??38%??at [facility], with multiple wall motion abnormalities.??No significant valvular disease noted.??The patient has been sent here for ischemia work-up.??Other differential diagnoses include??dilated cardiomyopathy in the setting of??chronic alcohol use??or uncontrolled hypertension.??He is currently hemodynamically stable without chest pain.??He is not volume overloaded on exam. ?? 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 Microcytic??anemia (D64.9) Folate deficiency Patient denies known history of anemia.??He denies active blood loss. This could be in the setting of chronic alcohol use.?? Iron panel at [facility]??was normal. Folate deficiency: Start folate 7 mg daily B12 low normal: Start??vitamin B12 1000 mcg daily Add on??iron panel Follow-up PCP??as outpatient ?? TSH elevated at 6, follow-up PCP as outpatient Monitor CBC. ?? Hypokalemia (E87.6):??Potassium supplemented at??[facility]. This was felt to be in the setting of diarrhea. We will follow-up metabolic panel??and magnesium level??with further supplementation as needed. ?? Infection by Giardia lamblia (A07.1) Enteropathogenic Escherichia coli infection (A04.0) Diarrhea (R19.7):??The patient states his diarrhea is improving.??No gross active bleeding. Nursing received a call from [facility] this afternoon that??his stool study showed PCR positive for enteropathogenic E. coli and Giardia. The patient does not have history of immunocompromise. Given that his diarrhea is improving,??no treatment is indicated for the E. coli. Start metronidazole 500 mg twice daily??for 7-day course as treatment for??Giardia infection. ?? Cardiac diet ?? Full code ?? Lovenox for DVT prophylaxis ?? Status post cardiac cath,??DC tomorrow if remains stable ?? Disclaimer: ??This note ??was accomplished with use of [employer] voice recognition software, which is prone to medical and other word misidentifications and grammatical errors. ??The physician does strive to identify and correct these, but some could still be present. ??Please do not hesitate to contact the physician for clarifications. ? Consult note * Digna Segura: PERFORM, SIGN, VERIFY Event Display: Consultation Note Authored Date: Patient: FRANKY GATES Age: 47 years Sex: Male : 1975 Associated Diagnoses: None Author: Digna Segura Met with patient this morning to discuss MAT. Patient is interested in the Vivitrol injection in which an appointment was established. Patient has an upcoming appointment with [facility] on12/18/2022 at 2:00pm. Addiction Consultation Team [address] [place] [address] Patient: Franky Armas (: 1975) Date: 12/11/2022 You have been referred to the following programs: [facility] [address] [place] [id number] Appointment: Friday12/18/2022 at 2:00pm. Please bring photo id and insurance card to the appointment. Patient Care team information Care Team Personnel Name: Maximo Arias RN Position: S RN Member Role: Primary Care Nurse Name: Not on Staff, PCP Position: S Physician (General Medicine) Member Role: PCP Name: Courtney Andrew Position: S RN Member Role: Primary Care Nurse Care Team Related Persons Name: JOSEFINA BORJAS Address: [place] [address] Name: JULIANN LEDESMA
--- NOTE | 2023-04-29 10:31 | ED_ITS ---
HPI - Chest Pain General Chief Complaint: Chest Pain Stated Complaint: cHEST pAIN sob Time Seen by Provider: 04/29/23 10:04 Source: patient and family () Mode of arrival: ambulatory Limitations: no limitations History of Present Illness HPI narrative: 47 year old male with pmhx significant for etoh abuse, cardiomyopathy, ACS s/p cardiac cath, iron deficiency anemia presents to the ED today with complaint of chest pain that awoke him from his sleep at 0400 this morning. Reports localized substernal chest pain without radiation. Endorses palpitations during episode lasting a few minutes. Reports pain intensity 8/10 at onset, now 3/10. at bedside states that she took patient's blood pressure during episode and his systolic pressure was noted to be around 240. He has not yet taken his lisinopril this morning. Takes 81 mg aspirin daily. Denies taking any medications prior to arrival in ED. Denies headache, dizziness, vision changes, SOB, cough, N/V, abdominal pain, syncope, lower extremity pain or swelling. Denies etoh or ilicit drug use. Denies recent travel or long car rides. Denies hormone use. Related Data Home Medications Medication Instructions Recorded Confirmed folic acid 1 mg tablet 1 mg PO DAILY 01/14/23 01/14/23 potassium chloride 20 mEq 20 meq PO BID 01/14/23 01/14/23 tablet,extended release(part/cryst) Previous Rx's Medication Instructions Recorded aspirin 81 mg chewable tablet 81 mg PO DAILY #1 tab 12/09/22 atorvastatin 80 mg tablet 80 mg PO DAILY #1 tab 12/09/22 heparin (porcine) 25,000 unit/250 25,000 unit (250 mL) continuous IV 12/09/22 mL in 0.45 % sodium chloride IV infusion .Q0M #1 mL soln heparin (porcine) 5,000 unit/mL 3,600 unit (0.72 mL) IVPUSH 12/09/22 injection solution PROTOCOL BOLUS PRN 40 Unit/Kg - Heparin Protocol #1 mL heparin (porcine) 5,000 unit/mL 7,300 unit (1.46 mL) IVPUSH 12/09/22 injection solution PROTOCOL BOLUS PRN 80 Unit/Kg - Heparin Protocol #1 mL carvedilol 6.25 mg tablet 6.25 mg PO BID #60 tabs 01/14/23 lisinopril 5 mg tablet 5 mg PO DAILY #90 tabs 01/14/23 Allergies Allergy/AdvReac Type Severity Reaction Status Date / Time No Known Allergies Allergy Verified 04/29/23 09:36 [No Known Allergies*] Review of Systems 2 Review of Systems: Constitutional: No fever, chills, fatigue, night sweats, weight changes ENT/Mouth: No ear pain, hearing loss, nasal congestion, sinus pain, rhinorrhea, sore throat Eyes: No eye pain, swelling, redness, vision changes, discharge Cardio: +chest pain, +palpitations, No NGUYEN, orthopnea, peripheral edema Pulm: No SOB, cough, sputum, wheezing, dyspnea, hemoptysis GI: No nausea, vomiting, hematemesis, abdominal pain, diarrhea, constipation, hematochezia, melena : No irregular bleeding, dysuria, frequency, urgency, hesitancy, hematuria, flank pain, urinary flow changes, urinary incontinence or retention MSK: No back pain, neck pain, joint pain, myalgias Skin: No lesions, rashes Neuro: No weakness, numbness, paresthesias, LOC, dizziness, headache All other systems reviewed and are negative. REPLACED BY [facility] Past Medical History Attestation statement: The following information was validated with the patient. Source: old records reviewed and nursing notes reviewed Medical History Tobacco use disorder Surgical History S/P cardiac catheterization Family History Family History Father Prostate cancer Social History Social History Household Members: Family Housing: Apartment Do you presently have visiting nurse or other home services: No Alcohol intake: current Alcohol intake frequency: holidays/special occasions only Alcohol type: beer Patient Tobacco Use Status: Current everyday Tobacco user Tobacco use type: Cigarette Cigarettes Per Day: 7 Smoked in Last 30 Days: Yes Use of substances other than those prescribed or required for medical reasons: No Advance Directives: No Advance Directives Information Provided: Yes service: No Current occupational status: employed 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 Const: General: cooperative, no acute distress, alert and awake; No diaphoretic Orientation/consciousness: patient oriented x3 Limitations: no limitations HEENT: Head: Yes normal to inspection Ears: hearing grossly normal bilaterally General nose exam: Normal external nose present Eyes: General: appearance normal, both eyes and all related structures C onjunctivae: conjunctivae normal Sclerae: sclerae normal Pupils: Equal, round and reactive pupils present EOM: EOMs intact bilaterally Direct Ophthalmoscopy: normal light reflex, no photophobia, no papilledema and fundi normal bilaterally Neck: Neck: Yes normal visual inspection, Yes no lymphadenopathy and Yes no JVD Chest: Chest palpation & inspection: normal inspection of the chest and normal palpation of entire chest wall Resp: Effort & Inspection: normal respiratory effort Auscultation: clear to auscultation bilaterally Cardio: Rate: regular rate Rhythm: regular rhythm Peripheral pulses: r adial pulses present and dorsalis pedis present GI: Inspection: Yes normal to inspection Palpation (GI): Soft to palpation, nontender, no guarding and no pulsatile masses Skin: General skin exam: no rashes or lesions noted Neuro: General: patient oriented x3, gait normal and moves all extremities Cranial nerves: Yes CN's II-XII intact bilaterally and Yes Equal, round and reactive pupils present Extrem: General: Yes normal to inspection, Yes capillary refill normal and Yes no clubbing, cyanosis or edema Course Course Course Narrative: 1056-- EKG showing NSR with a rate of 90 bpm. There is prolonged QT, slightly elevated when compared to priors. Will wait for chemistry to come back to assess electrolytes. Patient noted to be hypertensive in the ED > slowly normalizing. Patient states that he has not had his antihypertensive this morning > Will give 5 mg lisinopril. Awaiting labs/ CXR. 1100-- I received critical lab of potassium of 2.5. Will obtain magnesium prior to repletion. This correlates to patient's prolonged QT finding on EKG. > CXR without infiltrate or consolidation to suggest pneumonia. CBC without leukocytosis. There is chronic microcytic anemia which appears to be stable. H&H is 9.5 and 30.0, upward trending from 5 months ago. He denies any bright red blood per rectum, epistaxis, hematochezia or melena. Declining MATHEW at this time. 1208-- Magnesium is WNL. Will order potassium 20 IV and 20 p.o. for repletion. 1537-- On repeat labs, potassium is upward trending, now 2.9. I will order another 20 p.o. and repeat troponin and EKG. Vital signs are stable, BP is now normalized. 1650-- Repeat troponin WNL > ACS unlikely. QT prolongation decreased on repeat EKG. Vital signs have remained stable and blood pressure is normalized. Workup is otherwise unremarkable. Patient's presentation is consistent with hypokalemia and hypertension. Both of these had been corrected in the ED today. I advised patient to follow-up with his PCP within 1-3 days for repeat potassium levels. Discussed strict return precautions. All questions answered at this time. Patient is agreeable disposition stable for discharge. Medications Administered Discontinued Medications Generic Name Dose Route Start Last Admin Trade Name Freq PRN Reason Stop Dose Admin Potassium Chloride 10 meq in 100 mls @ 100 mls/hr 04/29/23 12:15 04/29/23 16:04 Potassium Chloride/H20 IV 04/29/23 14:14 Infused Q1H AMY Infusion Lisinopril 5 mg 04/29/23 10:46 04/29/23 11:17 Lisinopril 5 Mg Tablet PO 04/29/23 10:47 5 mg ONCE ONE Administration Protocol Potassium Chloride 20 meq 04/29/23 12:06 04/29/23 13:15 Potassium Chloride Er 20 Meq Tab.Er.Prt PO 04/29/23 12:07 20 meq ONCE ONE Administration Potassium Chloride 20 meq 04/29/23 15:35 04/29/23 16:03 Potassium Chloride Er 20 Meq Tab.Er.Prt PO 04/29/23 15:36 20 meq ONCE ONE Administration Medical Decision Making Medical Decision Making MDM Narrative: 47 year old male with pmhx significant for etoh abuse, cardiomyopathy, ACS s/p cardiac cath, iron deficiency anemia presents to the ED today with complaint of chest pain that awoke him from his sleep at 0400 this morning. Vital signs initially notable for hypertension, normalized after lisinopril administration, otherwise WNL. Patient is nontoxic appearing and in NAD. Not diaphoretic. RRR. No JVD or peripheral edema. Lungs CTA b/l. Chest wall without tenderness or crepitus. No rashes. No LE edema, erythema, calf tenderness. PERC score 0, pulmonary embolism is not suspected. HEART score 3. Clinical concern for arrythmia, ACS, acute electrolyte abnormality, anemia, hypertension/ hypertensive urgency. Unlikely MSK sprain/strain, rib fracture, viral syndrome, pneumonia, hypertensive emergency. Plan at this time is for basic labs, troponin, EKG, chest x-ray and re-evaluation. Differential Diagnosis Differential Diagnoses: The differential diagnosis associated with the presentation includes As above. Admission/Observation Consideration of admission/observation: Escalation of care including admission/observation considered In this 47-year-old patient with history of ACS requiring cardiac catheterization, admission was considered. Lab Data MDM Lab Attestation statement: I reviewed the patient's lab results. As above. 04/29/23 10:31 04/29/23 15:06 Labs: Lab Results 04/29/23 04/29/23 04/29/23 Range/Units 10:31 10:32 15:06 WBC 10.3 (4.8-10.8) X10*3/uL RBC 4.52 L (4.60-5.80) X10*6/uL Hgb 9.5 L (14.0-18.0) g/dl Hct 30.3 L (42.0-52.0) % MCV 67.0 L (80.0-98.0) fL MCH 21.0 L (27.0-33.0) pg MCHC 31.4 (31.0-36.0) g/dl RDW 16.6 H (11.0-16.0) % Plt Count 267 (160-400) X10*3/uL MPV 11.2 (9.4-12.4) fL Immature Gran % (Auto) 0.5 H (0.0-0.4) % Neut % (Auto) 64.0 (45-73) % Lymph % (Auto) 23.5 (20-40) % [place] % (Auto) 5.8 (2-11) % Eos % (Auto) 4.8 H (0-4) % Baso % (Auto) 1.4 (0-2) % Lymph # (Auto) 2.4 (1.2-4.9) X10*3/uL [place] # (Auto) 0.6 (0.1-1.2) X10*3/uL Eos # (Auto) 0.5 H (0.0-0.4) X10*3/uL Baso # (Auto) 0.1 (0.0-0.2) X10*3/uL Abs Immat Gran (auto) 0.05 H (0.00-0.03) X10*3/uL Absolute Neuts (auto) 6.6 (2.0-8.3) x10*3/uL Absolute Nucleated RBC 0.020 H (0.0-0.012) X10*3/uL Nucleated RBC % (auto) 0.2 (0.0-0.2) /100WBC Sodium 141 142 (135-145) mmol/L Potassium 2.5 L* 2.9 L (3.3-5.1) mmol/L Chloride 106 105 (96-108) mmol/L Carbon Dioxide 26 28 (22-29) mmol/L Anion Gap 12 12 (12-20) BUN 7 L 8 L (9-16) mg/dL Creatinine 0.72 0.73 (0.5-1.4) mg/dL Estim Creat Clear Calc 148.8 146.8 Estimated GFR > 60 > 60 Random Glucose 137 H 117 H (60-115) mg/dL Calcium 8.6 D 8.5 (8.4-10.2) mg/dL Magnesium 1.7 1.7 (1.6-2.6) mg/dL Total Bilirubin 0.7 (0.0-1.0) mg/dL Direct Bilirubin 0.3 (0.0-0.5) mg/dL AST 40 H (5-37) U/L ALT 36 (0-40) U/L Alkaline Phosphatase 114 (39-117) U/L Troponin I High Sens 7.2 D (<3.5-35.0) ng/L Total Protein 7.0 (6.5-8.0) g/dL Albumin 4.1 (3.5-5.0) g/dL 04/29/23 Range/Units 16:18 WBC (4.8-10.8) X10*3/uL RBC (4.60-5.80) X10*6/uL Hgb (14.0-18.0) g/dl Hct (42.0-52.0) % MCV (80.0-98.0) fL MCH (27.0-33.0) pg MCHC (31.0-36.0) g/dl RDW (11.0-16.0) % Plt Count (160-400) X10*3/uL MPV (9.4-12.4) fL Immature Gran % (Auto) (0.0-0.4) % Neut % (Auto) (45-73) % Lymph % (Auto) (20-40) % [place] % (Auto) (2-11) % Eos % (Auto) (0-4) % Baso % (Auto) (0-2) % Lymph # (Auto) (1.2-4.9) X10*3/uL [place] # (Auto) (0.1-1.2) X10*3/uL Eos # (Auto) (0.0-0.4) X10*3/uL Baso # (Auto) (0.0-0.2) X10*3/uL Abs Immat Gran (auto) (0.00-0.03) X10*3/uL Absolute Neuts (auto) (2.0-8.3) x10*3/uL Absolute Nucleated RBC (0.0-0.012) X10*3/uL Nucleated RBC % (auto) (0.0-0.2) /100WBC Sodium (135-145) mmol/L Potassium (3.3-5.1) mmol/L Chloride (96-108) mmol/L Carbon Dioxide (22-29) mmol/L Anion Gap (12-20) BUN (9-16) mg/dL Creatinine (0.5-1.4) mg/dL Estim Creat Clear Calc Estimated GFR Random Glucose (60-115) mg/dL Calcium (8.4-10.2) mg/dL Magnesium (1.6-2.6) mg/dL Total Bilirubin (0.0-1.0) mg/dL Direct Bilirubin (0.0-0.5) mg/dL AST (5-37) U/L ALT (0-40) U/L Alkaline Phosphatase (39-117) U/L Troponin I High Sens 6.1 (<3.5-35.0) ng/L Total Protein (6.5-8.0) g/dL Albumin (3.5-5.0) g/dL Independent Interpretation I performed an independent interpretation of an: Plain X-Ray Interpretation: EKG showing normal sinus rhythm with a rate of 90 beats per minute, prolonged QT of 412 correlating with hypokalemia, no acute ischemic changes or ST elevations. CXR with normal cardiac silhouette, there are no infiltrates or consolidations to suggest a pneumonia, agree with radiologist's interpretation. Radiology Impression Discussion of test interpretation with radiology: I have reviewed the radiologist's reading. Radiologist Impression: XR chest 2V IMPRESSION: No acute cardiopulmonary disease. Independent Historian Clinical information obtained from an independent historian. History obtained from or confirmed by: Spouse () External Record Review External record reviewed: Inpatient record, Office record, Outpatient record, Prior outpatient labs, Prior outpatient radiology, Primary care record and Outside ED record Prescription Management I considered prescription management with: Pain Medication and Other (antihypertensive) Chronic Conditions Patient?s care impacted by: Hypertension and Other (cardiovascular disease) Social Determinants Patient?s care significantly limited by Social Determinants of Health including: Other Social Determinant of Health Scores Heart Score History: -0- slightly suspicious ECG: -0- normal Age: -0- < or = 45 Risk factory: -1- 1 or 2 risk factors Troponin: -1- >1 - <3x normal limit Score: 2 Risk: 1.7% Critical Care Time Critical Care Time Critical Care Time: No Discharge Plan Discharge Clinical Impression: Acute hypokalemia, Hypertension Patient Disposition: Still a Patient Instructions: Potassium Content of Foods List (ED), Hypokalemia (ED) Additional Instructions: Your labs today showed a low potassium. Your potassium was repleted in the emergency department. Your labs also showed a stable anemia, improved since last visit. Follow-up with your primary care provider regarding this as they may recommend iron supplementation. Your cardiac enzymes were within normal limites and your EKG was normal. The x-ray of your test did not show pneumonia or acute cardiac pathology. You need to follow-up with your primary care provider to have repeat potassium levels drawn in 1-3 days. Make sure that your monitoring your blood pressure at home and taking your medications as prescribed. Return to the emergency department if her symptoms persist or worsen. The case of an emergency call 911. Edilia an?lisis de hoy mostraron un nivel bajo de potasio. Muñoz potasio se replet? en el departamento de emergencias. Edilia an?lisis tambi?n mostraron sonu anemia estable, mejorada desde la ?ltima visita. Yuliana un seguimiento con muñoz proveedor de atenci?n primaria sobre esto, ya que puede recomendarle suplementos de juaquin. Edilia enzimas card?acas estaban dentro de los l?mites normales y muñoz electrocardiograma era normal. La radiograf?a de muñoz examen no mostr? neumon?a ni patolog?a card?dwaine aguda. Debe realizar un seguimiento con muñoz proveedor de atenci?n primaria para que le repitan los niveles de potasio en 1 a 3 d?as. Aseg?rese de controlar muñoz presi?n arterial en casa y adwoa edilia medicamentos seg?n lo recetado. Regrese al departamento de emergencias si edilia s?ntomas persisten o empeoran. El benjamin de sonu llamada de emergencia al 911. Prescriptions: No Action atorvastatin 80 mg Tablet 80 mg PO DAILY Qty: 1 0RF aspirin 81 mg Tablet,Chewable 81 mg PO DAILY Qty: 1 0RF heparin (porcine) 5,000 unit/mL Solution 7,300 unit IVPUSH PROTOCOL BOLUS PRN (Reason: 80 Unit/Kg - Heparin Protocol) Qty: 1 0RF heparin (porcine) 5,000 unit/mL Solution 3,600 unit IVPUSH PROTOCOL BOLUS PRN (Reason: 40 Unit/Kg - Heparin Protocol) Qty: 1 0RF heparin(porcine) in 0.45% NaCl 25,000 unit/250 mL Parenteral Solution 25,000 unit continuous IV infusion .Q0M Qty: 1 0RF potassium chloride 20 mEq tablet,ER particles/crystals 20 meq PO BID folic acid 1 mg tablet 1 mg PO DAILY carvedilol 6.25 mg tablet 6.25 mg PO BID Qty: 60 5RF Rx Instructions: must administer with a meal/food lisinopril 5 mg tablet 5 mg PO DAILY Qty: 90 1RF Referrals: Physician,Unknown J [Primary Care Provider] - Stand Alone Forms: Work/School Release Interventions: ED Discharge Assessment Last Done: 04/29/23 17:15 Discharge Date/Time: 04/29/23 17:17 Print Language: Zambian
[2023-04-29 10:36] LABS: MANUAL DIFF FLAG NO
[2023-04-29 10:40] LABS: Basophils Absolute Auto 0.1 X10*3/uL (0.0-0.2); Basophils Percent Auto 1.4 % (0-2); Eosinophils Absolute Auto 0.5 X10*3/uL (0.0-0.4); Eosinophils Percent Auto 4.8 % (0-4); Hematocrit 30.3 % (42.0-52.0); Hemoglobin 9.5 g/dl (14.0-18.0); Imm Gran Abs Auto 0.05 X10*3/uL (0.00-0.03); Imm Gran Pct Auto 0.5 % (0.0-0.4); Lymphocytes Absolute Auto 2.4 X10*3/uL (1.2-4.9); Lymphocytes Percent Auto 23.5 % (20-40); Mean Corpuscular HGB Conc 31.4 g/dl (31.0-36.0); Mean Platelet Volume 11.2 fL (9.4-12.4); Monocytes Absolute Auto 0.6 X10*3/uL (0.1-1.2); Monocytes Percent Auto 5.8 % (2-11); NRBC Pct Auto 0.2 /100WBC (0.0-0.2); Neutrophils Absolute Auto 6.6 x10*3/uL (2.0-8.3); Platelet Count 267 X10*3/uL (160-400); Red Blood Count 4.52 X10*6/uL (4.60-5.80); Red Cell Distribution Width 16.6 % (11.0-16.0); White Blood Count 10.3 X10*3/uL (4.8-10.8)
[2023-04-29 10:42] VITALS: BP 151/91; PULSE 83; RESP 22; O2SAT 98
[2023-04-29 10:58] LABS: Troponin-I High Sensitivity 7.2 ng/L (<3.5-35.0)
[2023-04-29 11:01] LABS: Alanine Aminotransferase 36 U/L (0-40); Albumin Level 4.1 g/dL (3.5-5.0); Alkaline Phosphatase 114 U/L (39-117); Anion Gap 12 (12-20); Aspartate Amino Transferase 40 U/L (5-37); Bilirubin Direct 0.3 mg/dL (0.0-0.5); Bilirubin Total 0.7 mg/dL (0.0-1.0); Blood Urea Nitrogen 7 mg/dL (9-16); Calcium 8.6 mg/dL (8.4-10.2); Carbon Dioxide 26 mmol/L (22-29); Chloride 106 mmol/L (96-108); Creatinine Clr Calc Pharmacy 148.8; Estimated Glomerular Filt Rate > 60; Glucose Random 137 mg/dL (60-115); Potassium 2.5 mmol/L (3.3-5.1); Sodium 141 mmol/L (135-145)
[2023-04-29] MEDS: lisinopriL 5 MG TABLET PO (11:17)
[2023-04-29 11:34] LABS: Magnesium 1.7 mg/dL (1.6-2.6)
[2023-04-29 12:43] VITALS: BP 152/92; PULSE 77; RESP 17; O2SAT 98
[2023-04-29] MEDS: Potassium Chloride ER 20 MEQ TAB.ER.PRT PO ×2 (13:15→16:03)
[2023-04-29] MEDS: Potassium Chloride/H20 10 MEQ/100 ML PIGGYBACK 100 MEQ IV ×2 (13:15→14:34)
[2023-04-29 15:24] LABS: Anion Gap 12 (12-20); Blood Urea Nitrogen 8 mg/dL (9-16); Calcium 8.5 mg/dL (8.4-10.2); Carbon Dioxide 28 mmol/L (22-29); Chloride 105 mmol/L (96-108); Creatinine Clr Calc Pharmacy 146.8; Estimated Glomerular Filt Rate > 60; Glucose Random 117 mg/dL (60-115); Magnesium 1.7 mg/dL (1.6-2.6); Potassium 2.9 mmol/L (3.3-5.1); Sodium 142 mmol/L (135-145)
[2023-04-29 15:30] VITALS: BP 146/86; PULSE 86; RESP 18; TEMP 36.8; O2SAT 97
--- NOTE | 2023-04-29 15:42 | ECG_ITS ---
Test Reason : CX PAIN Blood Pressure : / mmHG Vent. Rate : 084 BPM Atrial Rate : 084 BPM P-R Int : 128 ms QRS Dur : 080 ms QT Int : 430 ms P-R-T Axes : 048 049 038 degrees QTc Int : 508 ms Normal sinus rhythm Prolonged QT Nonspecific ST abnormality Inferior leads Abnormal ECG When compared with ECG of 29-APR-2023 09:29, No significant change was found Referred By: Justa Burks Electronically Signed By:ROSARIO CHAVEZ MD
[2023-04-29 16:45] LABS: Troponin-I High Sensitivity 6.1 ng/L (<3.5-35.0)
== END 2023-04-29 17:17 | disposition still patient (30) ==
PROVIDERS: Physician Assistant Medical; Emergency Provider Emergency Medicine
DX: E87.6 Hypokalemia (principal); I10 Essential (primary) hypertension; R07.9 Chest pain, unspecified; R06.02 Shortness of breath; D50.9 Iron deficiency anemia, unspecified; F17.210 Nicotine dependence, cigarettes, uncomplicated; Z79.82 Long term (current) use of aspirin; Z79.899 Other long term (current) drug therapy
CPT/HCPCS: 36415; 71046; 80048; 80076; 83735; 84484; 85025; 93005; 96365; 96366; 99285; J3480

== ENCOUNTER 2023-06-17 07:25 | Emergency (ER) | payer MEDICAID, OTHER, SELFPAY ==
--- NOTE | ~2023-06-17 | XR_ITS ---
EXAMINATION: XR FOOT, RIGHT CLINICAL INFORMATION: Pain and swelling. COMPARISON: None available. TECHNIQUE: 3 views of the right foot. FINDINGS: Bones have normal alignment. Joint spaces are maintained. No erosions or periostitis. No evidence of any significant degenerative or inflammatory arthropathy. The 0.2 cm subchondral cyst of the 5th metatarsal head could be sequela of a remote chondral injury at the metatarsophalangeal joint. No acute fracture or subluxation. There is a very small plantar calcaneal enthesophyte. XR/XR foot RT min 3V IMPRESSION: * No radiographic evidence of osteomyelitis. * No specific source of pain is identified. No acute fracture or malalignment within the right foot. * There is a small subchondral cyst of the 5th metatarsal head. * A very small plantar calcaneal enthesophyte is present.
[2023-06-17 07:35] VITALS: BP 151/93; PULSE 82; RESP 16; TEMP 36.7; O2SAT 96; BMI 32.3
--- NOTE | 2023-06-17 07:54 | ED_ITS ---
HPI - General Adult General Chief complaint: Extremity Injury, Lower Stated complaint: R foot pain Time Seen by Provider: 06/17/23 07:49 History of Present Illness HPI narrative: The patient is a 47-year-old male who injured his right foot when he was walking up a flight of stairs 3 days ago on Friday evening.. He was wearing sneakers. He says that he caught his toe twisted on a step and the foot then twisted and he has a lot of pain at the right great toe and of the forefoot generally. He says that at the time of the injury he felt that there was a snapping noise in his foot. All he has been walking less than usual because of the pain. Today he was supposed to start a new job and he felt that he was having too much pain in his foot to be able to go to work. He has not had any fever, sweats, chills. He has not felt ill. He has no significant ankle pain. Related Data Home Medications Medication Instructions Recorded Confirmed folic acid 1 mg tablet 1 mg PO DAILY 01/14/23 01/14/23 potassium chloride 20 mEq 20 meq PO BID 01/14/23 01/14/23 tablet,extended release(part/cryst) Previous Rx's Medication Instructions Recorded aspirin 81 mg chewable tablet 81 mg PO DAILY #1 tab 12/09/22 atorvastatin 80 mg tablet 80 mg PO DAILY #1 tab 12/09/22 heparin (porcine) 25,000 unit/250 25,000 unit (250 mL) continuous IV 12/09/22 mL in 0.45 % sodium chloride IV infusion .Q0M #1 mL soln heparin (porcine) 5,000 unit/mL 3,600 unit (0.72 mL) IVPUSH 12/09/22 injection solution PROTOCOL BOLUS PRN 40 Unit/Kg - Heparin Protocol #1 mL heparin (porcine) 5,000 unit/mL 7,300 unit (1.46 mL) IVPUSH 12/09/22 injection solution PROTOCOL BOLUS PRN 80 Unit/Kg - Heparin Protocol #1 mL carvedilol 6.25 mg tablet 6.25 mg PO BID #60 tabs 01/14/23 lisinopril 5 mg tablet 5 mg PO DAILY #90 tabs 01/14/23 ibuprofen 600 mg tablet 600 mg PO Q6H PRN pain #14 tabs 06/17/23 Allergies Allergy/AdvReac Type Severity Reaction Status Date / Time No Known Allergies Allergy Verified 06/17/23 07:35 [No Known Allergies*] Review of Systems Review of Systems: Yes all other systems are reviewed and are negative PMFSH Past Medical History Onset Date is defined in the Problem List Problems that require an onset date and time if occurred within 24 hrs of arrival to the ED Aortic Dissection and Rupture; Neurologic impairment; Cardiopulmonary Arrest; Endotracheal Intubation; Insertion or Replacement of Mechanical Circulatory Assist Device Medical History Tobacco use disorder Surgical History S/P cardiac catheterization Family History Family History Father Prostate cancer Social History Social History Household Members: Family Housing: Apartment Do you presently have visiting nurse or other home services: No Alcohol intake: current Alcohol intake frequency: holidays/special occasions only Alcohol type: beer Patient Tobacco Use Status: Current everyday Tobacco user Tobacco use type: Cigarette Cigarettes Per Day: 7 Smoked in Last 30 Days: No Use of substances other than those prescribed or required for medical reasons: No Advance Directives: No service: No Current occupational status: employed 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 He does not appear in acute distress. He looks as though he is ordinarily healthy. He was elevating his right foot. HENMT Other: No injuries to the head or face. Skin Other: The skin of the dorsum of the right foot is mildly red and swollen and war mat the forefoot and the great toe. The foot and the toe are well perfused. Pulses are intact. Neuro Other: Intact sensation in the foot. The patient is neurologically intact generally. Extrem Other: The patient has generalized tenderness to the right forefoot and the great toe. No gross deformity. The ankle is nontender. Medications Administered Discontinued Medications Generic Name Dose Route Start Last Admin Trade Name Braden PRN Reason Stop Dose Admin Acetaminophen 975 mg 06/17/23 09:17 06/17/23 09:21 Acetaminophen 325 Mg Tablet PO 06/17/23 09:18 975 mg ONCE ONE Administration Ibuprofen 600 mg 06/17/23 09:17 06/17/23 09:21 Ibuprofen 600 Mg Tablet PO 06/17/23 09:18 600 mg ONCE ONE Administration Medical Decision Making Medical Decision Making [facility] Narrative: patient is here for evaluation of right foot pain that began when he was twisted his foot going up stairs on Friday night, 3 nights ago. He has had pain ever since. His pain seems to be localized at the forefoot and the right great toe. The ankle is nontender. X-ray shows no fracture. There is some mild erythema and warmth in the region of the dorsum of the forefoot but I think this is more a manifestation of an injury and bruising than an infection. There is no break in the skin to suggest that this might be a cellulitis. He will be treated for a sprained foot with recommendations to keep the foot elevated. he will be advised to stay off the foot with nonweightbearing. He should keep the foot elevated. He will be given a postop shoe and crutches. He was given a work note. He was given a prescription for ibuprofen. He should follow up with his PCP. If he develops worsening redness or streaking up the leg or fever he should return to the emergency room. Discharge Plan Discharge Clinical Impression: Right foot sprain Patient Disposition: Home, Self-Care Instructions: Foot Sprain (ED), Ice Pack Application (ED) Additional Instructions: The x-ray of your right foot shows no fracture or other identifiable injury. I think you have sprained your right foot. Please plan on resting the foot for the next several days. Do not put weight on the foot. When sitting down you should elevate the foot to reduce swelling. Please plan on keeping the foot elevated and icing the foot several times a day for the next few days. I think you will likely need to stay home from work this week. Please plan on following up with your regular doctor. If the redness begins to spread up the foot towards the leg or if you develop a fever or other concerning symptoms please return to the emergency room for re- evaluation. Prescriptions: New ibuprofen 600 mg tablet 600 mg PO Q6H PRN (Reason: pain) Qty: 14 0RF No Action atorvastatin 80 mg Tablet 80 mg PO DAILY Qty: 1 0RF aspirin 81 mg Tablet,Chewable 81 mg PO DAILY Qty: 1 0RF heparin (porcine) 5,000 unit/mL Solution 7,300 unit IVPUSH PROTOCOL BOLUS PRN (Reason: 80 Unit/Kg - Heparin Protocol) Qty: 1 0RF heparin (porcine) 5,000 unit/mL Solution 3,600 unit IVPUSH PROTOCOL BOLUS PRN (Reason: 40 Unit/Kg - Heparin Protocol) Qty: 1 0RF heparin(porcine) in 0.45% NaCl 25,000 unit/250 mL Parenteral Solution 25,000 unit continuous IV infusion .Q0M Qty: 1 0RF potassium chloride 20 mEq tablet,ER particles/crystals 20 meq PO BID folic acid 1 mg tablet 1 mg PO DAILY carvedilol 6.25 mg tablet 6.25 mg PO BID Qty: 60 5RF Rx Instructions: must administer with a meal/food lisinopril 5 mg tablet 5 mg PO DAILY Qty: 90 1RF Stand Alone Forms: Work/School Release
--- OUTSIDE RECORDS SUMMARY | 2023-06-17 07:54 | XMS_ITS | Continuity of Care Document ---
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 Name Role Phone Zenon Doherty NP Primary Care Physician [phone] Encounter [facility] [place] Date(s): 02/25/23 - 05/18/23 [facility] [address]- Attending Physician: Not on Staff, Attending MD Referring Physician: Zenon Doherty NP Allergies, Adverse Reactions, Alerts No Known Allergies Immunizations Given and Recorded Vaccine Date Status Refusal Reason hepatitis B adult vaccine 01/24/23 Given pneumococcal 20-valent conjugate vaccine 12/12/22 Given [id number] 12y+ bivalent booster vax 06/25/22 Recorded SARS-CoV-2 [...] Refills, Maintenance, 01/24/23 14:33:00 EDT, CR Tablet, [facility], Partial fill upon patient request if the prescription is for a schedule II opioid drug., 1... Start Date: 01/24/23 Stop Date: 01/19/24 Status: Ordered atorvastatin 80 mg oral tablet 1 tablet = 80 mg, By Mouth, Daily, # 30 tablet, 11 Refills, Maintenance, 12/12/22 15:04:00 EDT, [facility] #[id number], Partial fill upon patient request if the [...] Maintenance, 12/12/22 15:03:00 EDT,Route to Pharmacy Electronically, [facility] #[id number], Partial fill upon patient request ifthe prescription is for a schedule II opioid drug.,... Start Date: 12/12/22 Status: Ordered lisinopril 5 mg oral tablet 2.5 mg, By Mouth, Daily, # 30 capsule, Refills 11, Tot. Refills 11, Maintenance, 12/12/22 15:03:00 EDT, Route to Pharmacy Electronically, [facility] #[id number], Partial fill upon patient request if the prescription is for a schedule II opioid dr... Start Date: 12/12/22 Status: Ordered Metoprolol Succinate ER 50 mg oral tablet, extended release See Instructions, GENNY 1 TABLETA POR LA BOCA CADA POWER, # 90 tablet, 1 Refills, Maintenance, 03/11/23 17:51:00 EDT, [facility], 170, cm, 01/24/23 13:54:00 EDT, Height, 95.45, kg, 01/24/23 13:54:00 EDT, Dry Weight Start Date: 03/11/23 Status: Ordered nicotine 14 mg/24 hr transdermal film, extended release 1 patch, Topically, Daily, # 30 patch, 0 Refills, Maintenance, 01/24/23 14:36:00 EDT, Patch, [facility], Partial fill upon patient request if the prescription is for a schedule IIopioid drug., 1 patch Topically Daily, 170, cm, .. Start Date: 01/24/23 Status: Ordered Vitamin B12 1000 mcg oral tablet = 1,000 mcg, By Mouth, Daily, # 30 capsule, 0 Refills, Maintenance, 12/12/22 15:03:00 EDT, Tablet, [facility] #[id number], Partial fill upon patient request if the prescription is for a scheduleII opioid drug., 170, cm, 12/12/22 14:33:00 EDT, He... Start Date: 12/12/22 Status: Ordered Vivitrol 380 mg intramuscular injection, extended release = 380 mg, Intramuscular, Every 28 days, [id number] Scavron rotate injection sites, # 1 each, 11 Refills, Maintenance, 12/19/22 12:54:00 EDT, [facility], Partial fill upon patient request if the prescription is for a schedule II op... Start Date: 12/19/22 Stop Date: 11/20/23 Status: Ordered Problem List Condition Confirmation Course Effective Dates Status H ealth Status Informant Alcohol dependence Confirmed Active Beta thalassemia trait 1 Confirmed Active Non-ischemic cardiomyopathy 2 Confirmed Active Hypertension Confirmed Active Microcytic anemia Confirmed Active Non-ST elevation NV (NSTEMI) 3 Confirmed Active Pulmonary nodule, right 4 Confirmed Active Obese class I Confirmed Active Subclinical hypothyroidism Confirmed Active 1per 01/24/23 peripheral smear done in the context of ongoing microcytic anemia 2ECHO done at [facility] LVEF: 38%. November 2022 3June 2022 [...] Associate Professional Member Role: PCP Address: Address: [address] [place] [address] Care Team Related Persons Name: JOSEFINA BORJAS Address: [address] [address] Name: JULIANN LEDESMA
--- OUTSIDE RECORDS SUMMARY | 2023-06-17 07:54 | XMS_ITS | Continuity of Care Document ---
Author Name Unknown Organization [facility] ter Address [address] [place] [id number]- Care Team Providers Care Video Production Assistant Name Role Phone Zenon Doherty NP Primary Care Physician [phone] Encounter [facility] R [id number] Date(s): 05/31/23 - 06/01/[address] [address]- Discharge Disposition: A-D/C Walkout Attending Physician: Not on Staff, Attending MD Admitting Physician: Not on Staff, Admitting MD Referring Physician: Not on Staff, Referring MD Allergies, Adverse Reactions, Alerts No Known Allergies Immunizations Given and Recorded Vaccine Date Status Refusal Reason hepatitis B adult vaccine 01/24/23 Given pneumococcal 20-valent conjugate vaccine 12/12/22 Given [id number] 12y+ bivalent booster vax 06/25/22 Recorded SARS-CoV-2 [...] Refills, Maintenance, 01/24/23 14:33:00 EDT, CR Tablet, [facility], Partial fill upon patient request if the prescription is for a schedule II opioid drug., 1... Start Date: 01/24/23 Stop Date: 01/19/24 Status: Ordered atorvastatin 80 mg oral tablet 1 tablet = 80 mg, By Mouth, Daily, # 30 tablet, 11 Refills, Maintenance, 12/12/22 15:04:00 EDT, [facility] #[id number], Partial fill upon patient request if the [...] Maintenance, 12/12/22 15:03:00 EDT,Route to Pharmacy Electronically, [facility] #[id number], Partial fill upon patient request ifthe prescription is for a schedule II opioid drug.,... Start Date: 12/12/22 Status: Ordered lisinopril 5 mg oral tablet 2.5 mg, By Mouth, Daily, # 30 capsule, Refills 11, Tot. Refills 11, Maintenance, 12/12/22 15:03:00 EDT, Route to Pharmacy Electronically, [facility] #[id number], Partial fill upon patient request if the prescription is for a schedule II opioid dr... Start Date: 12/12/22 Status: Ordered Metoprolol Succinate ER 50 mg oral tablet, extended release See Instructions, GENNY 1 TABLETA POR LA BOCA CADA POWER, # 90 tablet, 1 Refills, Maintenance, 03/11/23 17:51:00 EDT, [facility], 170, cm, 01/24/23 13:54:00 EDT, Height, 95.45, kg, 01/24/23 13:54:00 EDT, Dry Weight Start Date: 03/11/23 Status: Ordered nicotine 14 mg/24 hr transdermal film, extended release 1 patch, Topically, Daily, # 30 patch, 0 Refills, Maintenance, 01/24/23 14:36:00 EDT, Patch, [facility], Partial fill upon patient request if the prescription is for a schedule IIopioid drug., 1 patch Topically Daily, 170, cm, .. Start Date: 01/24/23 Status: Ordered Vitamin B12 1000 mcg oral tablet = 1,000 mcg, By Mouth, Daily, # 30 capsule, 0 Refills, Maintenance, 12/12/22 15:03:00 EDT, Tablet, [facility] #[id number], Partial fill upon patient request if the prescription is for a scheduleII opioid drug., 170, cm, 12/12/22 14:33:00 EDT, He... Start Date: 12/12/22 Status: Ordered Vivitrol 380 mg intramuscular injection, extended release = 380 mg, Intramuscular, Every 28 days, [id number] Scavron rotate injection sites, # 1 each, 11 Refills, Maintenance, 12/19/22 12:54:00 EDT, [facility], Partial fill upon patient request if [...] Active Pulmonary nodule, right 4 Confirmed Active Subclinical hypothyroidism Confirmed Active 1per 01/24/23 peripheral smear done in the context of ongoing microcytic anemia 2ECHO done at [facility] LVEF: 38%. November 2022 3June 2022 43mm in Right Upper Lobe (Jun 2020) Results Radiology Reports * Exam Date Time Procedure Performing Provider Status 05/31/23 10:58 PM Chest 2 Views Frontal and Lat Lara Berry; Auth (Verified) Notes: (Chest 2 Views Frontal and Lat) Reason For Exam: Shortness of Breath RESULT: Chest 2 Views Frontal and Lat Chest 2 Views Frontal and Lat Reason: Shortness of Breath; Clinical Question(s): Pneumonia; Special Instructions: This is a protocol film and radiologist should call any findings to the Charge Nurse COMPARISON: 01/05/2023 FINDINGS: LINES AND TUBES: None. LUNGS AND PLEURA: Clear lungs. Normal pulmonary vascularity. No pleural effusion. No pneumothorax. HEART, MEDIASTINUM AND TONYA: Heart is normal in size. Normal mediastinal and hilar contour. BONES AND SOFT TISSUES: No acute abnormality. IMPRESSION: No acute abnormality. WSN: [id number] Ordering Physician: Crissy Terrell Dictated By: Jose Hammond MD Dictated Date/Time: 05/31/23 11:04 p Reviewed By: Jose Hammond MD Signed By: Jose Hammond MD Signed Date/Time: 05/31/23 11:04 pm Transcribed By: VIOLETA Transcribed Date/Time: 05/31/23 11:02 pm Vital Signs Most recent to oldest [Reference Range]: 1 2 Height 175 cm (05/31/23 9:53 PM) Weight 83 kg (05/31/23 9:53 PM) Oxygen Saturation [94-100 %] 98 % (06/01/23 12:57 AM) 97 % (05/31/23 9:53 PM) Pulse Rate [55-90 bpm] 74 bpm (06/01/23 12:57 AM) 86 bpm (05/31/23 9:53 PM) Body Mass Index [18.5-24.99 kg/m2] 27.1 kg/m2 *H* (05/31/23 9:53 PM) Blood Pressure [90-138/55-84 mm Hg] 156/ 88mm Hg *H* (06/01/23 12:57 AM) 168/106mm Hg *H* (05/31/23 9:53 PM) Respiratory Rate [16-30 br/min] 20 br/mi n (06/01/23 12:57 AM) 20 br/min (05/31/23 9:53 PM) Temperature [96.8-100.4 DegF] 98.8 DegF (05/31/23 9:53 PM) Mode of Delivery (Oxygen) Room air (06/01/23 12:57 AM) Room air (05/31/23 9:53 PM) Blood pressure sites Arm, right (06/01/23 12:57 AM) Arm, right (05/31/23 9:53 PM) Temperature Route Oral (05/31/23 9:53 PM) Social History Social History Type Response Tobacco Interested in cessat ion: Yes. Other: Started smoking at 21. From [age] y/o smoked 1 PPD. Then 10-12 per day. Then 7 cigs per day. Has not smoked since 12-08-22. Sex EKG study * Event Display: EKG Authored Date: * Event Display: ECG 12-Lead Authored Date: Please click on pdf link to open report * Event Display: ECG 12-Lead Authored Date: Ventricular Rate: 91 BPM Atrial Rate: 91 BPM P-R Interval: 130 ms QRS Duration: 74 ms Q-T Interval: 398 ms QTC Calculation(Bazett): 489 ms P Sutton: 24 degrees R Sutton: 61 degrees T Sutton: 47 degrees Normal sinus rhythm Prolonged QT Abnormal ECG When compared with ECG of 05-JAN-2023 03:37, No significant change was found Confirmed by MARYAM OAKLEY MD ([id number]) on 06/01/2023 1:08:19 PM [place]: MARYAM OAKLEY MD Patient Care team information Care Team Personnel Name: Zenon Doherty NP Position: [facility] PCO Associate Professional Member Role: PCP Address: Address: [address] [place] [address]- Care Team Related Persons Name: JOSEFINA BORJAS Address: home [address] [place] [address] Name: JULIANN LEDESMA
--- OUTSIDE RECORDS SUMMARY | 2023-06-17 07:54 | XMS_ITS | Continuity of Care Document ---
Author Name Unknown Organization [facility] Address [address] [place] [address]- Care Team Providers Care Operating Cost Clerk Name Role Phone Zenon Doherty NP Primary Care Physician [place] [facility] [place]24[place]23 [place] 05/01/23 [facility] [address]- Attending Physician: Not on Staff, Attending MD Allergies, Adverse Reactions, Alerts No Known Allergies Immunizations Given and Recorded Vaccine Date Status Refusal Reason hepatitis B adult vaccine 01/24/23 Given pneumococcal 20-valent conjugate vaccine 12/12/22 Given [id number] 12y+ bivalent booster vax 06/25/22 Recorded SARS-CoV-2 [...] Refills, Maintenance, 01/24/23 14:33:00 EDT, CR Tablet, [facility], Partial fill upon patient request if the prescription is for a schedule II opioid drug., 1... Start Date: 01/24/23 Stop Date: 01/19/24 Status: Ordered atorvastatin 80 mg oral tablet 1 tablet = 80 mg, By Mouth, Daily, # 30 tablet, 11 Refills, Maintenance, 12/12/22 15:04:00 EDT, [facility] #[id number], Partial fill upon patient request if the [...] Maintenance, 12/12/22 15:03:00 EDT,Route to Pharmacy Electronically, [facility] #[id number], Partial fill upon patient request ifthe prescription is for a schedule II opioid drug.,... Start Date: 12/12/22 Status: Ordered lisinopril 5 mg oral tablet 2.5 mg, By Mouth, Daily, # 30 capsule, Refills 11, Tot. Refills 11, Maintenance, 12/12/22 15:03:00 EDT, Route to Pharmacy Electronically, [facility] #[id number], Partial fill upon patient request if the prescription is for a schedule II opioid dr... Start Date: 12/12/22 Status: Ordered Metoprolol Succinate ER 50 mg oral tablet, extended release See Instructions, GENNY 1 TABLETA POR LA BOCA CADA POWER, # 90 tablet, 1 Refills, Maintenance, 03/11/23 17:51:00 EDT, [facility], 170, cm, 01/24/23 13:54:00 EDT, Height, 95.45, kg, 01/24/23 13:54:00 EDT, Dry Weight Start Date: 03/11/23 Status: Ordered nicotine 14 mg/24 hr transdermal film, extended release 1 patch, Topically, Daily, # 30 patch, 0 Refills, Maintenance, 01/24/23 14:36:00 EDT, Patch, [facility], Partial fill upon patient request if the prescription is for a schedule IIopioid drug., 1 patch Topically Daily, 170, cm, ... Start Date: 01/24/23 Status: Ordered Vitamin B12 1000 mcg oral tablet = 1,000 mcg, By Mouth, Daily, # 30 capsule, 0 Refills, Maintenance, 12/12/22 15:03:00 EDT, Tablet, [facility] #[id number], Partial fill upon patient request if the prescription is for a scheduleII opioid drug., 170, cm, 12/12/22 14:33:00 EDT, He... Start Date: 12/12/22 Status: Ordered Vivitrol 380 mg intramuscular injection, extended release = 380 mg, Intramuscular, Every 28 days, [id number] Scavron rotate injection sites, # 1 each, 11 Refills, Maintenance, 12/19/22 12:54:00 EDT, [facility], Partial fill upon patient request if the prescription is for a schedule II op... Start Date: 12/19/22 Stop Date: 11/20/23 Status: Ordered Problem List Condition Confirmation Course Effective Dates Status H ealth Status Informant Alcohol dependence Confirmed Active Beta thalassemia trait 1 Confirmed Active Non-ischemic cardiomyopathy 2 Confirmed Active Hypertension Confirmed Active Microcytic anemia Confirmed Active Non-ST elevation [place] (NSTEMI) 3 Confirmed Active Pulmonary nodule, right 4 Confirmed Active Obese class I Confirmed Active Subclinical hypothyroidism Confirmed Active 1per 01/24/23 peripheral smear done in the context of ongoing microcytic anemia 2ECHO done at [facility] LVEF: 38%. November 2022 3June 2022 [...] Associate Professional Member Role: PCP Address: Address: [address] [place] [address]- Care Team Related Persons Name: JOSEFINA BORJAS Address: home [address] [place] [address] Name: JULIANN LEDESMA
--- OUTSIDE RECORDS SUMMARY | 2023-06-17 07:54 | XMS_ITS | Continuity of Care Document ---
Author Name Unknown Organization [facility] Address [address] [place] [address]- Care Team Providers Care Lamp Tester And Inspector Name Role Phone Zenon Doherty NP Primary Care Physician [phone] Encounter [facility] Date(s): 03/20/23 - 05/23/23 [facility] [address]- Attending Physician: Dorothea De Luna MD Admitting Physician: Dorothea De Luna MD Allergies, Adverse Reactions, Alerts No Known Allergies Immunizations Given and Recorded Vaccine Date Status Refusal Reason hepatitis B adult vaccine 01/24/23 Given pneumococcal 20-valent conjugate vaccine 12/12/22 Given [id number] 12y+ bivalent booster vax 06/25/22 Recorded SARS-CoV-2 [...] Refills, Maintenance, 01/24/23 14:33:00 EDT, CR Tablet, [facility], Partial fill upon patient request if the prescription is for a schedule II opioid drug., 1... Start Date: 01/24/23 Stop Date: 01/19/24 Status: Ordered atorvastatin 80 mg oral tablet 1 tablet = 80 mg, By Mouth, Daily, # 30 tablet, 11 Refills, Maintenance, 12/12/22 15:04:00 EDT, [facility] #[id number], Partial fill upon patient request if the [...] Maintenance, 12/12/22 15:03:00 EDT,Route to Pharmacy Electronically, [facility] #[id number], Partial fill upon patient request ifthe prescription is for a schedule II opioid drug.,... Start Date: 12/12/22 Status: Ordered lisinopril 5 mg oral tablet 2.5 mg, By Mouth, Daily, # 30 capsule, Refills 11, Tot. Refills 11, Maintenance, 12/12/22 15:03:00 EDT, Route to Pharmacy Electronically, [facility] #[id number], Partial fill upon patient request if the prescription is for a schedule II opioid dr... Start Date: 12/12/22 Status: Ordered Metoprolol Succinate ER 50 mg oral tablet, extended release See Instructions, GENNY 1 TABLETA POR LA BOCA CADA POWER, # 90 tablet, 1 Refills, Maintenance, 03/11/23 17:51:00 EDT, [facility], 170, cm, 01/24/23 13:54:00 EDT, Height, 95.45, kg, 01/24/23 13:54:00 EDT, Dry Weight Start Date: 03/11/23 Status: Ordered nicotine 14 mg/24 hr transdermal film, extended release 1 patch, Topically, Daily, # 30 patch, 0 Refills, Maintenance, 01/24/23 14:36:00 EDT, Patch, [facility], Partial fill upon patient request if the prescription is for a schedule IIopioid drug., 1 patch Topically Daily, 170, cm, ... Start Date: 01/24/23 Status: Ordered Vitamin B12 1000 mcg oral tablet = 1,000 mcg, By Mouth, Daily, # 30 capsule, 0 Refills, Maintenance, 12/12/22 15:03:00 EDT, Tablet, [facility] #[id number], Partial fill upon patient request if the prescription is for a scheduleII opioid drug., 170, cm, 12/12/22 14:33:00 EDT, He... Start Date: 12/12/22 Status: Ordered Vivitrol 380 mg intramuscular injection, extended release = 380 mg, Intramuscular, Every 28 days, [id number] Scavron rotate injection sites, # 1 each, 11 Refills, Maintenance, 12/19/22 12:54:00 EDT, [facility], Partial fill upon patient request if the [...] of ongoing microcytic anemia 2ECHO done at [facility] LVEF: 38%. November 2022 3June 2022 [...] Professional Member Role: PCP Address: Address: [address] [place] [address] Care Team Related Persons Name: JOSEFINA BORJAS Address: [address] [address] Name: JULIANN LEDESMA
--- OUTSIDE RECORDS SUMMARY | 2023-06-17 07:54 | XMS_ITS | Continuity of Care Document ---
Author Name Unknown Organization [facility] Address [address] [place] [address]- Care Team Providers Care Oral And Maxillofacial Surgery Name Role Phone Zenon Doherty NP Primary Care Physician [phone] Encounter [facility] Date(s): 04/16/23 - 05/16/23 [facility] [address] [place] [address]- Attending Physician: Jarocho Macedo Admitting Physician: Jarocho Macedo Referring Physician: AdmtrJarocho Allergies, Adverse Reactions, Alerts No Known Allergies Immunizations Given and Recorded Vaccine Date Status Refusal Reason hepatitis B adult vaccine 01/24/23 Given pneumococcal 20-valent conjugate vaccine 12/12/22 Given [id number] 12y+ bivalent booster vax 06/25/22 Recorded SARS-CoV-2 [...] Refills, Maintenance, 01/24/23 14:33:00 EDT, CR Tablet, [facility], Partial fill upon patient request if the prescription is for a schedule II opioid drug., 1... Start Date: 01/24/23 Stop Date: 01/19/24 Status: Ordered atorvastatin 80 mg oral tablet 1 tablet = 80 mg, By Mouth, Daily, # 30 tablet, 11 Refills, Maintenance, 12/12/22 15:04:00 EDT, [facility] #[id number], Partial fill upon patient request if the [...] Maintenance, 12/12/22 15:03:00 EDT,Route to Pharmacy Electronically, [facility] #[id number], Partial fill upon patient request ifthe prescription is for a schedule II opioid drug.,... Start Date: 12/12/22 Status: Ordered lisinopril 5 mg oral tablet 2.5 mg, By Mouth, Daily, # 30 capsule, Refills 11, Tot. Refills 11, Maintenance, 12/12/22 15:03:00 EDT, Route to Pharmacy Electronically, [facility] #[id number], Partial fill upon patient request if the prescription is for a schedule II opioid dr... Start Date: 12/12/22 Status: Ordered Metoprolol Succinate ER 50 mg oral tablet, extended release See Instructions, GENNY 1 TABLETA POR LA BOCA CADA POWER, # 90 tablet, 1 Refills, Maintenance, 03/11/23 17:51:00 EDT, [facility], 170, cm, 01/24/23 13:54:00 EDT, Height, 95.45, kg, 01/24/23 13:54:00 EDT, Dry Weight Start Date: 03/11/23 Status: Ordered nicotine 14 mg/24 hr transdermal film, extended release 1 patch, Topically, Daily, # 30 patch, 0 Refills, Maintenance, 01/24/23 14:36:00 EDT, Patch, [facility], Partial fill upon patient request if the prescription is for a schedule IIopioid drug., 1 patch Topically Daily, 170, cm, .. Start Date: 01/24/23 Status: Ordered Vitamin B12 1000 mcg oral tablet = 1,000 mcg, By Mouth, Daily, # 30 capsule, 0 Refills, Maintenance, 12/12/22 15:03:00 EDT, Tablet, [facility] #[id number], Partial fill upon patient request if the prescription is for a scheduleII opioid drug., 170, cm, 12/12/22 14:33:00 EDT, He... Start Date: 12/12/22 Status: Ordered Vivitrol 380 mg intramuscular injection, extended release = 380 mg, Intramuscular, Every 28 days, [id number] Scavron rotate injection sites, # 1 each, 11 Refills, Maintenance, 12/19/22 12:54:00 EDT, [facility], Partial fill upon patient request if the prescription is for a schedule II op... Start Date: 12/19/22 Stop Date: 11/20/23 Status: Ordered Problem List Condition Confirmation Course Effective Dates Status H ealth Status Informant Alcohol dependence Confirmed Active Beta thalassemia trait 1 Confirmed Active Non-ischemic cardiomyopathy 2 Confirmed Active Hypertension Confirmed Active Microcytic anemia Confirmed Active Non-ST elevation [place] (NSTEMI) 3 Confirmed Active Pulmonary nodule, right 4 Confirmed Active Obese class I Confirmed Active Subclinical hypothyroidism Confirmed Active 1per 01/24/23 peripheral smear done in the context of ongoing microcytic anemia 2ECHO done at [facility] LVEF: 38%. November 2022 3June 2022 [...] Professional Member Role: PCP Address: Address: [address] [place] [address] Care Team Related Persons Name: JOSEFINA BORJAS Address: home [address] [place] [address] Name: JULIANN LEDESMA
--- OUTSIDE RECORDS SUMMARY | 2023-06-17 07:55 | XMS_ITS | Continuity of Care Document ---
Author Name Unknown Organization [facility] Address [address] [place] [address]- Care Team Providers Care Tree Warden Name Role Phone Zenon Doherty NP Primary Care Physician Encounter [facility] ACCT R [id number] Date(s): 05/02/23 - 06/01/23 [facility] [address]- Attending Physician: Jarocho Macedo Admitting Physician: Jarocho Macedo Referring Physician: AdmtrJarocho Allergies, Adverse Reactions, Alerts No Known Allergies Immunizations Given and Recorded Vaccine Date Status Refusal Reason hepatitis B adult vaccine 01/24/23 Given pneumococcal 20-valent conjugate vaccine 12/12/22 Given [id number] 12y+ bivalent booster vax 06/25/22 Recorded SARS-CoV-2 [...] Refills, Maintenance, 01/24/23 14:33:00 EDT, CR Tablet, [facility], Partial fill upon patient request if the prescription is for a schedule II opioid drug., 1... Start Date: 01/24/23 Stop Date: 01/19/24 Status: Ordered atorvastatin 80 mg oral tablet 1 tablet = 80 mg, By Mouth, Daily, # 30 tablet, 11 Refills, Maintenance, 12/12/22 15:04:00 EDT, [facility] #[id number], Partial fill upon patient request if the [...] Maintenance, 12/12/22 15:03:00 EDT,Route to Pharmacy Electronically, [facility] #[id number], Partial fill upon patient request ifthe prescription is for a schedule II opioid drug.,... Start Date: 12/12/22 Status: Ordered lisinopril 5 mg oral tablet 2.5 mg, By Mouth, Daily, # 30 capsule, Refills 11, Tot. Refills 11, Maintenance, 12/12/22 15:03:00 EDT, Route to Pharmacy Electronically, [facility] #[id number], Partial fill upon patient request if the prescription is for a schedule II opioid dr... Start Date: 12/12/22 Status: Ordered Metoprolol Succinate ER 50 mg oral tablet, extended release See Instructions, GENNY 1 TABLETA POR LA BOCA CADA POWER, # 90 tablet, 1 Refills, Maintenance, 03/11/23 17:51:00 EDT, [facility], 170, cm, 01/24/23 13:54:00 EDT, Height, 95.45, kg, 01/24/23 13:54:00 EDT, Dry Weight Start Date: 03/11/23 Status: Ordered nicotine 14 mg/24 hr transdermal film, extended release 1 patch, Topically, Daily, # 30 patch, 0 Refills, Maintenance, 01/24/23 14:36:00 EDT, Patch, [facility], Partial fill upon patient request if the prescription is for a schedule IIopioid drug., 1 patch Topically Daily, 170, cm, .. Start Date: 01/24/23 Status: Ordered Vitamin B12 1000 mcg oral tablet = 1,000 mcg, By Mouth, Daily, # 30 capsule, 0 Refills, Maintenance, 12/12/22 15:03:00 EDT, Tablet, [facility] #[id number], Partial fill upon patient request if the prescription is for a scheduleII opioid drug., 170, cm, 12/12/22 14:33:00 EDT, He... Start Date: 12/12/22 Status: Ordered Vivitrol 380 mg intramuscular injection, extended release = 380 mg, Intramuscular, Every 28 days, [id number] Scavron rotate injection sites, # 1 each, 11 Refills, Maintenance, 12/19/22 12:54:00 EDT, [facility], Partial fill upon patient request if the prescription is for a schedule II op... Start Date: 12/19/22 Stop Date: 11/20/23 Status: Ordered Problem List Condition Confirmation Course Effective Dates Status H ealth Status Informant Alcohol dependence Confirmed Active Beta thalassemia trait 1 Confirmed Active Non-ischemic cardiomyopathy 2 Confirmed Active Hypertension Confirmed Active Microcytic anemia Confirmed Active Non-ST elevation ME (NSTEMI) 3 Confirmed Active Pulmonary nodule, right 4 Confirmed Active Subclinical hypothyroidism Confirmed Active 1per 01/24/23 peripheral smear done in the context of ongoing microcytic anemia 2ECHO done at [facility] LVEF: 38%. November 2022 3June 2022 43mm in Right Upper Lobe (Jun 2020) Social History Social History Type Response Tobacco Interested in cessat ion: Yes. Other: Started smoking at 21. From [age] y/o smoked 1 PPD. Then 10-12 per day. Then 7 cigs per day. Has not smoked since 12-08-22. Sex Hospital Consult note * Event Display: Inpatient Consult Note, Non- Authored Date: Patient Care team information Care Team Personnel Name: Zenon Doherty NP Position: S PCO Associate Professional Member Role: PCP Address: Address: [address] [place] [address] Care Team Related Persons Name: JOSEFINA BORJAS Address: [address] [place] [address] Name: JULIANN LEDESMA
--- NOTE | 2023-06-17 08:26 | PC.NURSE ---
pt to xray.
[2023-06-17] MEDS: Ibuprofen 600 MG TABLET PO (09:21)
[2023-06-17] MEDS: Acetaminophen 325 MG TABLET 975 MG PO (09:21)
--- NOTE | 2023-06-17 09:22 | PC.NURSE ---
medication administered per provider order.
[2023-06-17 09:29] VITALS: BP 137/89; PULSE 96; RESP 16; TEMP 36.7; O2SAT 96
--- NOTE | 2023-06-17 09:37 | PC.NURSE ---
post op shoe applied to right foot by [employer] providing crutch training/education at this time.
== END 2023-06-17 09:49 | disposition home or self-care (01) ==
PROVIDERS: Emergency Provider Emergency Medicine
DX: S93.601A Unspecified sprain of right foot, initial encounter (principal); X50.1XXA Overexertion from prolonged static or awkward postures, initial encounter; Y93.89 Activity, other specified; Y92.9 Unspecified place or not applicable; Y99.9 Unspecified external cause status
CPT/HCPCS: 73630; 99283; 99284

== ENCOUNTER 2023-06-27 10:54 | Emergency (ER) | payer MEDICAID, OTHER, SELFPAY ==
[2023-06-27 11:16] VITALS: BP 162/100; PULSE 82; RESP 16; TEMP 36.8; O2SAT 95; BMI 31.9
--- NOTE | 2023-06-27 11:16 | ED.URI ---
HPI - URI/Sore Throat General Chief Complaint: General Medical Stated Complaint: fever, throat pain, headache Time Seen by Provider: 06/27/23 11:32 Source: patient Mode of arrival: ambulatory Limitations: no limitations History of Present Illness HPI Narrative: Patient is a 47 year old assigned male at with a history of HTN presenting to the emergency department today with a headache, nasal congestion, and a fever. Patient states that over the last 2 days he has had a headache, nasal congestion, and a fever. Patient denies any dizziness, lightheadedness, abdominal pain, nausea, vomiting, chills, blurry vision, double vision, loss of vision, chest pain, difficulty breathing, shortness of breath, back pain, night sweats, pain with urination, increased urinary frequency, increased urinary urgency, blood in his urine or stool, syncope or a near syncopal episode, recent trauma or falls, bowel incontinence, bladder incontinence, bowel retention, bladder retention, or any other complaints at this time. MD elicited complaint: fever and nasal congestion Onset (ago): day(s) (2) Treatments prior to arrival: none Related Data Home Medications Medication Instructions Recorded Confirmed folic acid 1 mg tablet 1 mg PO DAILY 01/14/23 01/14/23 potassium chloride 20 mEq 20 meq PO BID 01/14/23 01/14/23 tablet,extended release(part/cryst) Previous Rx's Medication Instructions Recorded aspirin 81 mg chewable tablet 81 mg PO DAILY #1 tab 12/09/22 atorvastatin 80 mg tablet 80 mg PO DAILY #1 tab 12/09/22 heparin (porcine) 25,000 unit/250 25,000 unit (250 mL) continuous IV 12/09/22 mL in 0.45 % sodium chloride IV infusion .Q0M #1 mL soln heparin (porcine) 5,000 unit/mL 3,600 unit (0.72 mL) IVPUSH 12/09/22 injection solution PROTOCOL BOLUS PRN 40 Unit/Kg - Heparin Protocol #1 mL heparin (porcine) 5,000 unit/mL 7,300 unit (1.46 mL) IVPUSH 12/09/22 injection solution PROTOCOL BOLUS PRN 80 Unit/Kg - Heparin Protocol #1 mL carvedilol 6.25 mg tablet 6.25 mg PO BID #60 tabs 01/14/23 lisinopril 5 mg tablet 5 mg PO DAILY #90 tabs 01/14/23 ibuprofen 600 mg tablet 600 mg PO Q6H PRN pain #14 tabs 06/17/23 Allergies Allergy/AdvReac Type Severity Reaction Status Date / Time No Known Allergies Allergy Verified 06/27/23 11:15 [No Known Allergies*] Review of Systems Constitutional: Constitutional: Reports no additional constitutional complaints, Denies chills, Reports fever(s), Reports headache(s) and Denies night sweats Eyes: Eyes: Reports no additional eye complaints, Denies blurry vision, Denies change in vision, Denies diplopia, Denies eye discharge, Denies loss of vision and Denies eye pain ENT: Denies dizziness, Reports headache(s) and Reports nasal congestion Cardiovascular: Cardiovascular: Reports no additional cardiovascular complaints, Denies chest pain, Denies lightheadedness, Denies Loss of Consciousness and Denies dyspnea Respiratory: Respiratory: Reports no additional respiratory complaints and Denies dyspnea Gastrointestinal: Gastrointestinal: Reports no additional gastrointestinal complaints, Denies abdominal pain, Denies melena, Denies hematochezia, Denies change in bowel habits and Denies change in stool character Genitourinary: Genitourinary: Reports no additional male genitourinary complaints, Denies hematuria, Denies oliguria, Denies difficulty urinating, Denies dysuria, Denies urinary frequency, Denies urinary hesitancy, Denies urinary incontinence and Denies urinary urgency Musculoskeletal: Musculoskeletal: Reports no additional musculoskeletal complaints, Denies numbness and Denies tingling Neurologic: Denies dizziness, Reports headache(s), Denies loss of vision, Denies numbness and Denies tingling Psychiatric: Psychiatric: Reports no additional psychiatric complaints Endocrine: Endocrine: Reports no additional endocrine complaints Hematologic/Lymphatic: Hematologic/Lymphatic: Reports no additional hematologic/lymphatic complaints Allergic/Immunologic: Allergic/Immunologic: Reports no additional allergic/immunologic complaints PMFSH Past Medical History Attestation statement: The following information was validated with the patient. Source: old records reviewed and nursing notes reviewed Onset Date is defined in the Problem List Problems that require an onset date and time if occurred within 24 hrs of arrival to the ED Aortic Dissection and Rupture; Neurologic impairment; Cardiopulmonary Arrest; Endotracheal Intubation; Insertion or Replacement of Mechanical Circulatory Assist Device Medical History Acute hypokalemia Chest pain Right ankle strain Tobacco use disorder Surgical History S/P cardiac catheterization Family History Family History Father Prostate cancer Social History Social History Household Members: Family Housing: Apartment Do you presently have visiting nurse or other home services: No Alcohol intake: current Alcohol intake frequency: holidays/special occasions only Alcohol type: beer Patient Tobacco Use Status: Current everyday Tobacco user Tobacco use type: Cigarette Cigarettes Per Day: 7 Advance Directives: No Advance Directives Information Provided: No service: No Current occupational status: employed 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 Physical Exam Vital Signs: Vital Signs: Last Vital Signs Temp 98.3 F 06/27/23 11:16 Pulse 82 06/27/23 11:16 Resp 16 06/27/23 11:16 BP 162/100 H 06/27/23 11:16 Pulse Ox 95 06/27/23 11:16 O2 Del Method Room Air 06/27/23 11:16 BMI result Body Mass Index 31.9 Const: General: cooperative, no acute distress, alert and awake Nutritional Appearance: well nourished Orientation/consciousness: patient oriented x3 Limitations: no limitations HEENT: Head: Yes normal to inspection and Yes atraumatic Ears: hearing grossly normal bilaterally and external ears normal General nose exam: Normal external nose present, no nasal discharge noted and no epistaxis Face and sinus: Yes normal facial exam, No abrasion and No laceration Mouth: Normal oral and palatal mucosa present, no drooling and no muffled voice Eyes: General: appearance normal, both eyes and all related structures Periorbital: periorbital findings normal Eyelids: Yes eyelids normal Conjunctivae: conjunctivae normal Pupils: Equal, round and reactive pupils present EOM: EOMs intact bilaterally Neck: Neck: Yes normal visual inspection, Yes full ROM and Yes no lymphadenopathy Chest: Chest palpation & inspection: normal inspection of the chest Resp: Effort & Inspection: normal respiratory effort and able to speak in complete sentences GI: Inspection: Yes normal to inspection Neuro: General: patient oriented x3 and moves all extremities Cranial nerves: Yes Equal, round and reactive pupils present Cognition (Neuro): normal cognition Motor exam (neuro): 5/5 motor strength present throughout Sensory Exam: Normal double simultaneous stimulation for sensation Coordination: [id number] test normal Extrem: General: Yes normal to inspection, Yes full ROM and Yes capillary refill normal Psych: Appearance: grossly normal Mental Status: mental status grossly normal Affect: normal affect Attitude: cooperative Thought process: Normal thought process present Thought content: Normal thought content present Insight: Good insight present (Psych) Course Course Course Narrative: This is an RME: Additional HPI, ROS, PE not included below will be deferred to primary provider. Patient is a 47-year-old male who presents emergency department for evaluation of headache, congestion, sore throat, fever with symptom onset 2 days. Did not take antihypertensives today as he had not eaten yet. Plan: COVID-19/influenza/strep a testing, placed in waiting room pending bed availability. Medications Administered Discontinued Medications Generic Name Dose Route Start Last Admin Trade Name Freq PRN Reason Stop Dose Admin Lisinopril 5 mg 06/27/23 11:22 06/27/23 11:38 Lisinopril 5 Mg Tablet PO 06/27/23 11:23 5 mg ONCE ONE Administration Protocol Medical Decision Making Medical Decision Making MDM Narrative: Patient is a 47 year old assigned male at with a history of HTN presenting to the emergency department today with a headache, nasal congestion, and a fever. Patient's physical exam was unremarkable. Patient's influenza test was negative. Patient's COVID-19 test was positive. I explained my physical exam findings as well as all test results to the patient. I answered all questions asked by the patient. I stressed the importance of the patient taking his medication as prescribed. I stressed the importance of the patient following up with his primary care provider. I stressed the importance of the patient returning to the emergency department immediately if his symptoms were to worsen or if he were to develop any dizziness, shortness of breath, difficulty breathing, chest pain, blurry vision, loss of vision, nausea, vomiting, abdominal pain, fever, chills, back pain, or any other complaints. Patient verbalized agreement and understanding with this treatment plan and discharge. Differential Diagnosis Differential Diagnoses: The differential diagnosis associated with the presentation includes COVID-19 Influenza Viral illness Admission/Observation Consideration of admission/observation: Escalation of care including admission/observation considered Patient would have been admitted to the hospital had his work up had any findings where hospital admission was appropriate and his clinical presentation warranted hospital admission. Lab Data [facility] Lab Attestation statement: I reviewed the patient's lab results. My interpretation of these results are in the MDM Rationale portion of this note. Labs: Lab Results 06/27/23 Range/Units 11:23 COVID-19 (NATALI) Positive A (Negative) COVID-19 Clin Com See Note Influenza Type A (JEANETTE) Negative (Negative) Influenza Type B (JEANETTE) Negative (Negative) Influenza A & B Note See Note S. pyogenes GrpA JEANETTE Negative (Negative) Prescription Management I considered prescription management with: Antiviral (Paxlovid considered however, patient declined.) Chronic Conditions Patient?s care impacted by: Hypertension Discharge Plan Discharge Clinical Impression: COVID-19 Patient Disposition: Home, Self-Care Instructions: MARQUISE-19 (Coronavirus Disease 2019) (ED) Additional Instructions: Follow up with your primary care provider. Return to the emergency department immediately if your symptoms worsen or if you develop any dizziness, shortness of breath, difficulty breathing, chest pain, blurry vision, loss of vision, nausea, vomiting, abdominal pain, fever, chills, back pain, or any other complaints. Debra un seguimiento con muñoz proveedor de atenci?n primaria. Regrese al departamento de emergencias inmediatamente si kate s?ntomas empeoran o si presenta mareos, dificultad para respirar, dificultad para respirar, dolor en el pecho, visi?n borrosa, p?rdida de la visi?n, n?useas, v?mitos, dolor abdominal, fiebre, escalofr?os, dolor de espalda o cualquier otras quejas. Prescriptions: No Action atorvastatin 80 mg Tablet 80 mg PO DAILY Qty: 1 0RF aspirin 81 mg Tablet,Chewable 81 mg PO DAILY Qty: 1 0RF heparin (porcine) 5,000 unit/mL Solution 7,300 unit IVPUSH PROTOCOL BOLUS PRN (Reason: 80 Unit/Kg - Heparin Protocol) Qty: 1 0RF heparin (porcine) 5,000 unit/mL Solution 3,600 unit IVPUSH PROTOCOL BOLUS PRN (Reason: 40 Unit/Kg - Heparin Protocol) Qty: 1 0RF heparin(porcine) in 0.45% NaCl 25,000 unit/250 mL Parenteral Solution 25,000 unit continuous IV infusion .Q0M Qty: 1 0RF ibuprofen 600 mg tablet 600 mg PO Q6H PRN (Reason: pain) Qty: 14 0RF potassium chloride 20 mEq tablet,ER particles/crystals 20 meq PO BID folic acid 1 mg tablet 1 mg PO DAILY carvedilol 6.25 mg tablet 6.25 mg PO BID Qty: 60 5RF Rx Instructions: must administer with a meal/food lisinopril 5 mg tablet 5 mg PO DAILY Qty: 90 1RF Referrals: [facility] [place] Family Medicine [Provider Group] (Call to establish and follow up with a primary care provider. If you already have a primary care provider, please follow up with them. Llame para establecer y realizar un seguimiento con un proveedor de atenci?n primaria. Si ya tiene un proveedor de atenci?n primaria, debra un seguimiento con ?l. ) [facility] [place] [facility] [Provider Group] (Call to establish and follow up with a primary care provider. If you already have a primary care provider, please follow up with them. Llame para establecer y realizar un seguimiento con un proveedor de atenci?n primaria. Si ya tiene un proveedor de atenci?n primaria, debra un seguimiento con ?l. ) [facility] [place] [facility] [Provider Group] (Call to establish and follow up with a primary care provider. If you already have a primary care provider, please follow up with them. Llame para establecer y realizar un seguimiento con un proveedor de atenci?n primaria. Si ya tiene un proveedor de atenci?n primaria, debra un seguimiento con ?l. ) Stand Alone Forms: Work/School Release Interventions: ED Discharge Assessment Last Done: 06/27/23 12:07 Discharge Date/Time: 06/27/23 12:07 Print Language: Macanese
[2023-06-27 11:38] LABS: IDNOW Serial# 08D9AD1C; Strep A Nucleic Acid Negative (Negative)
[2023-06-27] MEDS: lisinopriL 5 MG TABLET PO (11:38)
--- NOTE | 2023-06-27 11:38 | PC.NURSE ---
pt medicated for blood pressure per order
[2023-06-27 11:42] LABS: COVID-19 Test Positive (Negative); IDNOW Serial# 58CA691E
[2023-06-27 11:52] LABS: IDNOW Serial# 152EDE1D; Influenza A Negative (Negative); Influenza B2 Negative (Negative)
== END 2023-06-27 12:07 | disposition home or self-care (01) ==
PROVIDERS: Nurse Practitioner Family; Emergency Provider Emergency Medicine
DX: U07.1 COVID-19 (principal); R50.9 Fever, unspecified; J02.9 Acute pharyngitis, unspecified; R09.81 Nasal congestion; Z79.899 Other long term (current) drug therapy; F17.200 Nicotine dependence, unspecified, uncomplicated; Z71.6 Tobacco abuse counseling
CPT/HCPCS: 87502; 87635; 87651; 99282; 99283